=== PATIENT | female | born 1965 | race Caucasian/White ===

== ENCOUNTER 2017-11-27 22:13 | Observation (INO) | payer MEDICAID, OTHER ==
[~2017-11-27] VITALS: Ht 160 cm; Wt 98.9 kg
--- NOTE | 2017-11-27 22:17 | ED.ADGEN ---
Past History Past Medical History: Angina, Hypertension, Other Past Surgical History: Cholecystectomy, Knee Replacement, Other Adult General Chief Complaint Chief Complaint ".. I am having Chest pain.. all day...it started about 10 to 1030.. but it has never gone away.. here in center of my chest... I took two nitro's and they did not help..." HPI HPI Patient is a 52 year old female who presents with above hx and complaints of chest pain she rates as 10/10. Patient did take aspirin today as well as 2 nitros without relief of her pain. Patient has remote history of DVT. Patient does have a history of hypertension, asthma, elevated cholesterol, chronic back and knee pain. No change in her medications. Normally follows with Dr. Reilly. Patient's last cardiac catheter was in 2011 no significant obstruction was noted. Did not receive any stents. Patient has not seen a graduate fellow recently. Review of Systems Review of Systems Constitutional: Denies fever or chills [] Eyes: Denies change in visual acuity, redness, or eye pain [] HENT: Denies nasal congestion or sore throat [] Respiratory: Denies cough or shortness of breath [] Cardiovascular: No additional information not addressed in HPI [] GI: Denies abdominal pain, nausea, vomiting, bloody stools or diarrhea [] : Denies dysuria or hematuria [] Musculoskeletal: Denies back pain or joint pain [] Integument: Denies rash or skin lesions [] Neurologic: Denies headache, focal weakness or sensory changes [] Endocrine: Denies polyuria or polydipsia [] All other systems were reviewed and found to be within normal limits, except as documented in this note. Family History Family History Noncontributory Current Medications Current Medications Current Medications Medications (Trade) Dose Ordered Sig/Ophelia Start Time Stop Time Status Last Admin Dose Admin Lactated Ringer's 1,000 ml @ 1,000 mls/hr Q1H 11/27/17 22:30 11/27/17 23:29 DC 11/27/17 22:46 1,000 MLS/HR See nursing for home meds Allergies Allergies Allergies Coded Allergies Type Severity Reaction Last Updated Verified Penicillins Allergy Unknown 11/27/17 Yes codeine Allergy Unknown 11/27/17 Yes ibuprofen Allergy Unknown 11/27/17 Yes tramadol Allergy Unknown 11/27/17 Yes per nursing Physical Exam Physical Exam Constitutional: Moderately acute distress, non-toxic appearance. [] HENT: Normocephalic, atraumatic, bilateral external ears normal, oropharynx moist, no oral exudates, nose normal. [] Eyes: PERRLA, EOMI, conjunctiva normal, no discharge. [] Glasses Neck: Normal range of motion, no tenderness, supple, no stridor. [] Old surgery scars. Cardiovascular- as per history of present illness. Regular rate and rhythm PMI to left Chest- breath sounds equal at apexes Abdomen- Obese, old surgery scars. Non-tender, No masses. Declines rectal - denies tarry stools. Skin: Warm, dry, no erythema, no rash. [] Back: No tenderness, no CVA tenderness. [] Extremities: No tenderness, no cyanosis, no clubbing, ROM intact, no edema. [] Right knee scar. No cording appreciated Neurologic: Alert and oriented X 3, normal motor function, normal sensory function, no focal deficits noted. [] Psychologic: Affect anxious, judgement normal, mood normal. [] Current Patient Data Vital Signs Vital Signs Date Time Temp Pulse Resp B/P (MAP) Pulse Ox O2 Delivery O2 Flow Rate FiO2 11/27/17 22:15 97.9 77 16 93 Room Air Lab Results Laboratory Tests Test 11/27/17 22:24 White Blood Count 9.6 x10^3/uL (4.0-11.0) Red Blood Count 4.50 x10^6/uL (3.50-5.40) Hemoglobin 13.2 g/dL (12.0-15.5) Hematocrit 39.3 % (36.0-47.0) Mean Corpuscular Volume 87 fL (79-100) Mean Corpuscular Hemoglobin 29 pg (25-35) Mean Corpuscular Hemoglobin Concent 34 g/dL (31-37) Red Cell Distribution Width 14.5 % (11.5-14.5) Platelet Count 306 x10^3/uL (140-400) Neutrophils (%) (Auto) 71 % (31-73) Lymphocytes (%) (Auto) 20 % (24-48) L Monocytes (%) (Auto) 6 % (0-9) Eosinophils (%) (Auto) 2 % (0-3) Basophils (%) (Auto) 1 % (0-3) Neutrophils # (Auto) 6.9 x10^3uL (1.8-7.7) Lymphocytes # (Auto) 1.9 x10^3/uL (1.0-4.8) Monocytes # (Auto) 0.5 x10^3/uL (0.0-1.1) Eosinophils # (Auto) 0.2 x10^3/uL (0.0-0.7) Basophils # (Auto) 0.1 x10^3/uL (0.0-0.2) Prothrombin Time 9.6 SEC (9.4-11.4) Prothrombin Time INR 0.9 (0.9-1.1) PTT 23 SEC (23-33) D-Dimer (Mei) 0.81 mg/L (0.00-0.50) H Sodium Level 138 mmol/L (136-145) Potassium Level 4.1 mmol/L (3.5-5.1) Chloride Level 103 mmol/L (98-107) Carbon Dioxide Level 30 mmol/L (21-32) Anion Gap 5 (6-14) L Blood Urea Nitrogen 11 mg/dL (7-20) Creatinine 1.0 mg/dL (0.6-1.0) Estimated GFR (Cockcroft-Gault) 58.2 Glucose Level 107 mg/dL (70-99) H Calcium Level 9.0 mg/dL (8.5-10.1) Magnesium Level 1.8 mg/dL (1.8-2.4) Total Bilirubin 0.3 mg/dL (0.2-1.0) Direct Bilirubin 0.1 mg/dL (0.0-0.2) Aspartate Amino Transferase (AST) 14 U/L (15-37) L Alanine Aminotransferase (ALT) 13 U/L (14-59) L Alkaline Phosphatase 97 U/L (46-116) Creatine Kinase 95 U/L (26-192) Creatine Kinase MB (Mass) 0.6 ng/mL (0.0-3.6) Creatine Kinase MB Relative Index 0.6 % (0-4) Troponin I Quantitative < 0.017 ng/mL (0-0.055) IN-Duu-F-Type Natriuretic Peptide 230 pg/mL (0-124) H Total Protein 6.7 g/dL (6.4-8.2) Albumin 3.4 g/dL (3.4-5.0) Lipase 207 U/L (73-393) EKG EKG I interpretation EKG shows[] sinus rhythm at 72 bpm. There is some leftward axis. Some nonspecific contour changes anterior septal region but no findings acute STEMI with contralateral changes. Radiology/Procedures Radiology/Procedures My interpretation of chest x-ray shows[] no chest x-ray shows borderline cardiac silhouette. Atelectasis. Some increased cephalization and bolus of the mediastinal area. Does have a previous hardware in neck from laminectomy. No free air in the diaphragm. Lateral film shows previous clips from abdomen surgery. Course & Med Decision Making Course & Med Decision Making Pertinent Labs and Imaging studies reviewed. (See chart for details) Discussed presentation, testing and tx. plan with Dr. Simon- will admit for further eval. and Tx. Cardiology consult. CT of chest and US legs pending at time of admission [] Final Impression Final Impression 1. Chest pain 2. Hypertension[] 3. Elevated D-dimer Dragon Disclaimer Dragon Disclaimer This electronic medical record was generated, in whole or in part, using a voice recognition dictation system. SHAY SNEED MD Nov 27, 2017 22:17
[2017-11-27] MEDS ORDERED: IV RINGERS SOLUTION,LACTATED 1,000 ML IV SCH (22:30)
--- NOTE | 2017-11-27 22:34 | EKG ---
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
[2017-11-27] MEDS ORDERED: MORPHINE SULFATE 10 MG/ML SYRINGE. SQ ONE (22:45)
[2017-11-27] MEDS ORDERED: ENOXAPARIN ** NOTE DOSE ** SYRINGE SQ ONE (22:45)
[2017-11-27] MEDS ORDERED: NITROGLYCERIN OINT 1 GM PACKET. TP ONE (22:45)
[2017-11-27 22:46] LABS: BASO # 0.1 x10^3/uL (0.0-0.2); BASO % 1 % (0-3); EOS # 0.2 x10^3/uL (0.0-0.7); EOS % 2 % (0-3); HEMATOCRIT 39.3 % (36.0-47.0); HEMOGLOBIN 13.2 g/dL (12.0-15.5); LYMPH # 1.9 x10^3/uL (1.0-4.8); LYMPH % 20 % (24-48); MEAN CORPUSCULAR HEMOGLOBIN 29 pg (25-35); MEAN CORPUSCULAR HGB CONC 34 g/dL (31-37); MEAN CORPUSCULAR VOLUME 87 fL (79-100); MONO # 0.5 x10^3/uL (0.0-1.1); MONO % 6 % (0-9); NEUT # 6.9 x10^3uL (1.8-7.7); NEUT % 71 % (31-73); PLATELET COUNT 306 x10^3/uL (140-400); RED CELL DISTRIBUTION WIDTH 14.5 % (11.5-14.5); WHITE BLOOD COUNT 9.6 x10^3/uL (4.0-11.0)
--- NOTE | 2017-11-27 22:50 | RAD ---
PA and lateral chest radiograph. History: Chest pain. Comparison: None. Findings: Cardiomediastinal silhouette is within normal limits for size. Bilateral lung cruz appear clear without evidence of infiltrate, effusion, or pneumothorax. Cervicothoracic junction demonstrate spinal fusion hardware. Old granulomatous disease of the chest is seen. Impression: 1. No acute cardiopulmonary process. Electronically signed by: Herb Quintero MD (11/27/2017 10:47 PM) [facility]
[2017-11-27 23:08] LABS: ALBUMIN 3.4 g/dL (3.4-5.0); DIRECT BILIRUBIN 0.1 mg/dL (0.0-0.2); GFR 58.2; MAGNESIUM 1.8 mg/dL (1.8-2.4); POTASSIUM 4.1 mmol/L (3.5-5.1); TOTAL BILIRUBIN 0.3 mg/dL (0.2-1.0); TOTAL PROTEIN 6.7 g/dL (6.4-8.2)
[2017-11-27] MEDS ORDERED: MORPHINE SULFATE 2 MG/ML DISP.SYRIN. IV PRN (23:45)
[2017-11-28] MEDS ORDERED: IOHEXOL 300 MG/ML 75 ML VIAL. IV ONE (00:15)
[2017-11-28] MEDS ORDERED: CONTRAST GIVEN MC PRN (00:15)
--- NOTE | 2017-11-28 01:05 | NUR ---
[facility] cardiology group notified that a cardiac consult is needed.
--- NOTE | 2017-11-28 01:38 | NUR ---
Pt arrives to room 113 from ER via EMS cot at this time.
--- NOTE | 2017-11-28 01:42 | RAD ---
INDICATION: [id number] Omni 300 75cc: PE protocol: Chest pain, elevated d-dimer. Hx: blood clot in lung 3 years ago COMPARISON: None. TECHNIQUE: Axial CT images obtained through the chest. Intravenous contrast utilized. Angiogram 3D images processed per protocol. One or more of the following individualized dose reduction techniques were utilized for this examination: 1. Automated exposure control; 2. Adjustment of the mA and/or kV according to patient size; 3. Use of iterative reconstruction technique. FINDINGS: Patchy opacities are seen throughout the bilateral lungs including groundglass component. Portion of ascending thoracic aorta obscured by motion but no definite dissection flap seen. Ascending thoracic aorta measures approximately 34 mm. The heart is somewhat enlarged. Degenerative changes of the spine. Postoperative changes lower cervical spine status post fusion. Motion and contrast bolus timing limits evaluation. No embolus in main pulmonary arteries. IMPRESSION: Patient motion limits exam but there is no embolus seen in the main pulmonary arteries. Peripheral evaluation is very limited. Groundglass opacities within the bilateral lungs. Could be from edema or airway inflammation from infectious/inflammatory causes. Also possible that a portion of this is secondary to hypoventilatory changes. Electronically signed by: Aiden Ignacio MD (11/28/2017 1:39 AM) [facility]
[2017-11-28 01:47] VITALS: BP 123/76
[2017-11-28] MEDS ORDERED: LISI-379 PO (02:04)
[2017-11-28] MEDS ORDERED: ESCITALOPRAM OX10 MG PO (02:04)
[2017-11-28] MEDS ORDERED: ATOR40TA PO (02:04)
[2017-11-28] MEDS ORDERED: ALBU6.7H IH (02:04)
--- NOTE | 2017-11-28 02:45 | NUR ---
Admission Note: Pt admitted Telemetry Status to one south after coming into the ER c/o CP. Pt is A/O x 4 pleasant and cooperative with staff, assessments and cares. Pt oriented to room and verbalizes understanding. Pt placed on telemetry on admission and shows NSR in the 60's. Pt steady on her feet but encouraged her to call when getting OOB for safety. Will continue to monitor.
[2017-11-28 02:51] LABS: BARBITURATES NEG (NEG); BENZODIAZEPINES NEG (NEG); CANNABINOIDS NEG (NEG); COCAINE NEG (NEG); METHADONE NEG (NEG); OPIATES POS (NEG); PHENCYCLIDINE NEG (NEG)
[2017-11-28 02:55] LABS: BACTERIA,URINE 0 /HPF (0-FEW); BILIRUBIN,URINE NEG (NEG); CLARITY,URINE CLEAR; COLOR,URINE YELLOW; GLUCOSE,URINE NEG (NEG); NITRITE,URINE NEG (NEG); RBC,URINE 0 /HPF (0-2); SQUAMOUS EPITHELIAL CELL,UR MANY /LPF; UROBILINOGEN,URINE 0.2 mg/dL (0.2 mg/dL); WBC,URINE 0 /HPF (0-4)
[2017-11-28 03:06] LABS: AMPHETAMINE/METHAMPHETAMINE NEG (NEG)
[2017-11-28] MEDS: ONDANSETRON PF 4 MG/2 ML VIAL. IV PRN ×2 (03:26→12:22)
[2017-11-28 05:19] VITALS: BP 120/80
[2017-11-28] MEDS ORDERED: NITROGLYCERIN OINT 1 GM PACKET. TP SCH (06:00)
[2017-11-28 06:15] LABS: BASO # 0.1 x10^3/uL (0.0-0.2); BASO % 1 % (0-3); EOS # 0.1 x10^3/uL (0.0-0.7); EOS % 1 % (0-3); HEMATOCRIT 37.1 % (36.0-47.0); HEMOGLOBIN 12.3 g/dL (12.0-15.5); LYMPH # 1.4 x10^3/uL (1.0-4.8); LYMPH % 12 % (24-48); MEAN CORPUSCULAR HEMOGLOBIN 29 pg (25-35); MEAN CORPUSCULAR HGB CONC 33 g/dL (31-37); MEAN CORPUSCULAR VOLUME 88 fL (79-100); MONO # 0.6 x10^3/uL (0.0-1.1); MONO % 5 % (0-9); NEUT # 9.7 x10^3uL (1.8-7.7); NEUT % 82 % (31-73); PLATELET COUNT 279 x10^3/uL (140-400); RED BLOOD COUNT 4.21 x10^6/uL (3.50-5.40); RED CELL DISTRIBUTION WIDTH 14.9 % (11.5-14.5); WHITE BLOOD COUNT 11.9 x10^3/uL (4.0-11.0)
[2017-11-28 06:25] LABS: CALCIUM 8.6 mg/dL (8.5-10.1); CREATININE 0.8 mg/dL (0.6-1.0); GFR 75.3
[2017-11-28] MEDS ORDERED: ENOXAPARIN ** NOTE DOSE ** SYRINGE SQ SCH ×2 (09:00→21:00)
[2017-11-28] MEDS ORDERED: ASPIRIN 81 MG TAB.CHEW PO SCH (09:00)
[2017-11-28] MEDS ORDERED: MORPHINE SULFATE 4 MG/ML DISP.SYRIN. ONE (09:16)
[2017-11-28] MEDS ORDERED: MORPHINE SULFATE 4 MG/ML DISP.SYRIN. IV PRN (09:30)
--- NOTE | 2017-11-28 10:30 | PDOC2 ---
ROSALESCLAUDIA Judith MOLECULAR PHYSICIST 11/28/17 1030: CONSULT Date of Admission DATE: 11/28/17 TIME: 10:23 Reason for Consult: chest pain Problem List Problems Medical Problems: (1) Chest pain Status: Acute History of Present Illness Ms Goddard is a 52 year old female who presented with complaints of chest pain. She describes a sharp pain in her left chest. Onset was at rest. She denies any increase with exertion, deep inspiration, movement. She denies any associated symptoms but does report mild dyspnea on exertion that she says is chronic and improved with use of her inhaler. She reports that her pain was not improved with nitrates and complains of headache. She reports that pain has been constant and continues to be at a 5/10. She does report improvement with morphine. She denies any palpitations, lightheadedness, syncope, congestive symptoms. She denies any change in her functional status. She does report prior cardiac cath that failed to reveal any significant coronary disease and states she had a stress test at [facility] in, she believes, July of this year. Past Medical History hypertension, hyperlipidemia, asthma, PE Cardiac cath by patient report at [facility] in [place], [place] which was normal Stress test in ~July at [facility] also reportedly normal. Past Surgical History back surgery, neck surgery, knee surgery Family History premature coronary disease in brother and sister, cancer and diabetes in mother , father with sudden cardiac at 49 yrs old. Social History She denies history of tobacco, ETOH or illicit drugs. Current Medications Home cardiac meds include : atorvastatin 40 mg daily Lisinopril 40mg daily Current Medications Lactated Ringer's 1,000 ml @ 1,000 mls/hr Q1H IV Last administered on at 22:46; Start 11/27/17 at 22:30; Stop 11/27/17 at 23:29; Status DC Nitroglycerin (Nitro-Bid Oint) 1 inch 1X ONCE TP Last administered on at 22:45; Start 11/27/17 at 22:45; Stop 11/27/17 at 22:46; Status DC Enoxaparin Sodium (Lovenox 100mg Syringe) 100 mg 1X ONCE SQ Last administered on 11/27/17at 22:47; Start 11/27/17 at 22:45; Stop 11/27/17 at 22:46; Status DC Morphine Sulfate (Morphine 10mg Syringe) 10 mg 1X ONCE SQ Last administered on 11/27/17at 22:47; Start 11/27/17 at 22:45; Stop 11/27/17 at 22:46; Status DC Iohexol (Omnipaque 300 Mg/ml) 75 ml 1X ONCE IV Last administered on 11/28/17at 00:14; Start 11/28/17 at 00:15; Stop 11/28/17 at 00:16; Status DC Morphine Sulfate (Morphine 2mg Syringe) 2 mg PRN Q2HR PRN IV PAIN Last administered on 11/28/17at 00:46; Start 11/27/17 at 23:45; Stop 11/28/17 at 09:22; Status DC Aspirin (Children'S Aspirin) 81 mg DAILY PO Last administered on 11/28/17at 09:07 ; Start 11/28/17 at 09:00 Nitroglycerin (Nitro-Bid Oint) 1 inch Q8H TP Last administered on 11/28/17at 06: 03; Start 11/28/17 at 06:00 Enoxaparin Sodium (Lovenox 100mg Syringe) 90 mg BID SQ Last administered on 11/28at 09:09; Start 11/28/17 at 09:00 Info (Do NOT chart on this entry -- for MONITORING) 1 each PRN DAILY PRN MC SEE COMMENTS; Start 11/28/17 at 00:15; Stop 11/30/17 at 00:14 Ondansetron HCl (Zofran) 4 mg PRN Q6HRS PRN IV NAUSEA/VOMITING Last administered on 11/28/17at 03:26; Start 11/28/17 at 02:45 Morphine Sulfate (Morphine 4mg Syringe) 4 mg STK-MED ONCE .ROUTE ; Start at 09:16; Stop 11/28/17 at 09:17; Status DC Morphine Sulfate (Morphine 4mg Syringe) 2 mg PRN Q2HR PRN IV PAIN; Start at 09:30; Stop 11/28/17 at 23:44 Active Scripts Active Reported Proventil Hfa Inhaler (Albuterol Sulfate) 6.7 Gm Hfa.aer.ad 1 Puff IH PRN Q4HRS PRN Zestril (Lisinopril) 40 Mg Tablet 80 Mg PO DAILY Lipitor (Atorvastatin Calcium) 40 Mg Tablet 1 Tab PO DAILY Escitalopram Oxalate 10 Mg Tablet 1 Tab PO DAILY Allergies: Coded Allergies: Penicillins (Verified Allergy, Intermediate, 11/28/17) codeine (Verified Allergy, Intermediate, 11/28/17) ibuprofen (Verified Allergy, Intermediate, 11/28/17) tramadol (Verified Allergy, Intermediate, 11/28/17) Review of System as per HPI or negative. VITALS Vital Signs Date Time Temp Pulse Resp B/P (MAP) Pulse Ox O2 Delivery O2 Flow Rate FiO2 11/28/17 06:03 64 120/80 11/28/17 05:19 98.3 16 94 Nasal Cannula 2.0 Labs Laboratory Tests Test 11/27/17 22:24 11/28/17 02:32 11/28/17 05:55 White Blood Count 9.6 x10^3/uL (4.0-11.0) 11.9 x10^3/uL (4.0-11.0) Red Blood Count 4.50 x10^6/uL (3.50-5.40) 4.21 x10^6/uL (3.50-5.40) Hemoglobin 13.2 g/dL (12.0-15.5) 12.3 g/dL (12.0-15.5) Hematocrit 39.3 % (36.0-47.0) 37.1 % (36.0-47.0) Mean Corpuscular Volume 87 fL (79-100) 88 fL (79-100) Mean Corpuscular Hemoglobin 29 pg (25-35) 29 pg (25-35) Mean Corpuscular Hemoglobin Concent 34 g/dL (31-37) 33 g/dL (31-37) Red Cell Distribution Width 14.5 % (11.5-14.5) 14.9 % (11.5-14.5) Platelet Count 306 x10^3/uL (140-400) 279 x10^3/uL (140-400) Neutrophils (%) (Auto) 71 % (31-73) 82 % (31-73) Lymphocytes (%) (Auto) 20 % (24-48) 12 % (24-48) Monocytes (%) (Auto) 6 % (0-9) 5 % (0-9) Eosinophils (%) (Auto) 2 % (0-3) 1 % (0-3) Basophils (%) (Auto) 1 % (0-3) 1 % (0-3) Neutrophils # (Auto) 6.9 x10^3uL (1.8-7.7) 9.7 x10^3uL (1.8-7.7) Lymphocytes # (Auto) 1.9 x10^3/uL (1.0-4.8) 1.4 x10^3/uL (1.0-4.8) Monocytes # (Auto) 0.5 x10^3/uL (0.0-1.1) 0.6 x10^3/uL (0.0-1.1) Eosinophils # (Auto) 0.2 x10^3/uL (0.0-0.7) 0.1 x10^3/uL (0.0-0.7) Basophils # (Auto) 0.1 x10^3/uL (0.0-0.2) 0.1 x10^3/uL (0.0-0.2) Prothrombin Time 9.6 SEC (9.4-11.4) Prothromb Time International Ratio 0.9 (0.9-1.1) Activated Partial Thromboplast Time 23 SEC (23-33) D-Dimer (Mei) 0.81 mg/L (0.00-0.50) Sodium Level 138 mmol/L (136-145) 136 mmol/L (136-145) Potassium Level 4.1 mmol/L (3.5-5.1) 4.0 mmol/L (3.5-5.1) Chloride Level 103 mmol/L (98-107) 103 mmol/L (98-107) Carbon Dioxide Level 30 mmol/L (21-32) 27 mmol/L (21-32) Anion Gap 5 (6-14) 6 (6-14) Blood Urea Nitrogen 11 mg/dL (7-20) 13 mg/dL (7-20) Creatinine 1.0 mg/dL (0.6-1.0) 0.8 mg/dL (0.6-1.0) Estimated GFR (Cockcroft-Gault) 58.2 75.3 Glucose Level 107 mg/dL (70-99) 122 mg/dL (70-99) Calcium Level 9.0 mg/dL (8.5-10.1) 8.6 mg/dL (8.5-10.1) Magnesium Level 1.8 mg/dL (1.8-2.4) Total Bilirubin 0.3 mg/dL (0.2-1.0) Direct Bilirubin 0.1 mg/dL (0.0-0.2) Aspartate Amino Transf (AST/SGOT) 14 U/L (15-37) Alanine Aminotransferase (ALT/SGPT) 13 U/L (14-59) Alkaline Phosphatase 97 U/L (46-116) Creatine Kinase 95 U/L (26-192) Creatine Kinase MB (Mass) 0.6 ng/mL (0.0-3.6) Creatine Kinase MB Relative Index 0.6 % (0-4) Troponin I Quantitative < 0.017 ng/mL (0-0.055) EA-Uae-H-Type Natriuretic Peptide 230 pg/mL (0-124) Total Protein 6.7 g/dL (6.4-8.2) Albumin 3.4 g/dL (3.4-5.0) Lipase 207 U/L (73-393) Urine Collection Type Unknown Urine Color Yellow Urine Clarity Clear Urine pH 5.0 Urine Specific [place] <=1.005 Urine Protein Neg (NEG-TRACE) Urine Glucose (UA) Neg mg/dL (NEG) Urine Ketones (Stick) Neg mg/dL (NEG) Urine Blood Trace (NEG) Urine Nitrite Neg (NEG) Urine Bilirubin Neg (NEG) Urine Urobilinogen Dipstick 0.2 mg/dL (0.2 mg/dL) Urine Leukocyte Esterase Neg (NEG) Urine RBC 0 /HPF (0-2) Urine WBC 0 /HPF (0-4) Urine Squamous Epithelial Cells Many /LPF Urine Bacteria 0 /HPF (0-FEW) Urine Opiates Screen Pos (NEG) Urine Methadone Screen Neg (NEG) Urine Barbiturates Neg (NEG) Urine Phencyclidine Screen Neg (NEG) Urine Amphetamine/Methamphetamine Neg (NEG) Urine Benzodiazepines Screen Neg (NEG) Urine Cocaine Screen Neg (NEG) Urine Cannabinoids Screen Neg (NEG) Urine Ethyl Alcohol Neg (NEG) Images EKG - sinus rhythm, left axis, non specific T abn. CXR - no acute abn CTA - IMPRESSION: Patient motion limits exam but there is no embolus seen in the main pulmonary arteries. Peripheral evaluation is very limited. Groundglass opacities within the bilateral lungs. Could be from edema or airway inflammation from infectious/inflammatory causes. Also possible that a portion of this is secondary to hypoventilatory changes. Assessment/Plan 1. Chest pain, atypical - suspect radiculopathy. will repeat cardiac enzymes, check echo, and request records of recent stress test from [facility] as well as heart cath from [facility] in [facility]. 2. hypertension - Currently mildly hypotensive off home antihypertensives. 3. abnormal CT - ground glass opacities possibly suggestive of edema, No overt clinical signs of heart failure. 4. elevated d dimer - CT negative for PE, venous duplex pending 5. hyperlipidemia - check lipids. resume home statin. 6. family history of premature coronary disease Will await repeat CE as only one set done and negative. Await echo results. Will request prior cath and stress test for review. Could consider MPI if not recent at [facility]. Continue supportive care. ISAC CLINE MD 11/28/17 1639: CONSULT Assessment/Plan Patient seen and examined. Agree with DUST MOP MAKER's assessment and plan. Chest pain with atypical features. Myocardial infarction has been ruled out. 2-D echo showed normal LV function without any wall motion abnormalities. Recent stress test apparently was normal and cardiac catheterization one year ago did not show any significant coronary artery disease. No further cardiac workup is indicated at this time. Okay for discharge from cardiac standpoint. Thank you for your consultation. CLAUDIA CABA APRN Nov 28, 2017 10:30 ISAC CLINE MD Nov 28, 2017 16:39
[2017-11-28 10:59] VITALS: BP 90/52
[2017-11-28 14:50] LABS: THYROID STIM HORMONE (TSH) 7.246 uIU/mL (0.358-3.740)
[2017-11-28 15:02] VITALS: BP 114/71
--- NOTE | 2017-11-28 15:06 | CARD ---
MR#: [id number] Date of Study: 11/28/2017 Ordering Physician: CLAUDIA CABA, Referring Physician: MARY MCDANIELS Tech: Jazmine Benjamin RDCS APPROVED REPORT EXAM: Two-dimensional and M-mode echocardiogram with Doppler and color Doppler. Other Information Quality : Good INDICATION Chest Pain 2D DIMENSIONS RVDd3.1 (2.9-3.5cm)Left Atrium(2D)3.8 (1.6-4.0cm) IVSd0.9 (0.7-1.1cm)Aortic Root(2D)3.3 (2.0-3.7cm) LVDd5.2 (3.9-5.9cm)LVOT Diameter2.1 (1.8-2.4cm) PWd1.0 (0.7-1.1cm)LVDs2.4 (2.5-4.0cm) FS (%) 30.0 %SV108.9 ml LVEF(%)60.0 (>50%) Aortic Valve AoV Peak Reilly.162.3cm/sAoV VTI33.6cm AO Peak GR.10.5mmHgLVOT Peak Reilly.143.7cm/s LVOT VTI 29.59cmAO Mean GR.5mmHg ANITHA (VMAX)3.75vr6JQM (VTI)3.15cm2 Mitral Valve MV E Udmxsjae380.5cm/sMV DECEL RWQO272rz MV A Xrgrsjzw412.1cm/sE/A Ratio1.2 Tricuspid Valve TR P. Diijteim402qg/sRAP ZULHIQHQ6iiAp TR Peak Gr.37teXwEVDR99wwPk Pulmonary Vein S1 Nbcufbmi77.4cm/sD2 Malomtwy66.8cm/s LEFT VENTRICLE The left ventricle is normal size. There is normal left ventricular wall thickness. The left ventricu lar systolic function is normal. The Ejection Fraction is 55-60%. There is normal LV segmental wall m otion. RIGHT VENTRICLE The right ventricle is normal size. The right ventricular systolic function is normal. ATRIA The left atrium size is normal. The right atrium size is normal. The interatrial septum is intact wit h no evidence for an atrial septal defect or patent foramen ovale as noted on 2-D or Doppler imaging. AORTIC VALVE The aortic valve is normal in structure and function. Doppler and Color Flow revealed no significant aortic regurgitation. There is no significant aortic valvular stenosis. MITRAL VALVE The mitral valve is normal in structure and function. There is no evidence of mitral valve prolapse. There is no mitral valve stenosis. Doppler and Color-flow revealed trace to mild mitral regurgitation . TRICUSPID VALVE The tricuspid valve is normal in structure and function. Doppler and Color Flow revealed trace tricus pid regurgitation. The PA pressure was estimated at 30 mmHg. There is no tricuspid valve stenosis. PULMONIC VALVE The pulmonic valve is not well visualized. Doppler and Color Flow revealed trace pulmonic valvular re gurgitation. There is no pulmonic valvular stenosis. GREAT VESSELS The aortic root is normal in size. The ascending aorta is mildly dilated at 3.4 cm. The IVC is normal in size and collapses >50% with inspiration. PERICARDIAL EFFUSION There is no evidence of significant pericardial effusion. Critical Notification Critical Value: No <Conclusion> The left ventricular systolic function is normal. The Ejection Fraction is 55-60%. There is normal LV segmental wall motion. Trace to mild mitral regurgitation. Trace tricuspid regurgitation. The PA pressure was estimated at 30 mmHg. There is no evidence of significant pericardial effusion. Signed by : Gilberto Bacon, Electronically Approved : 11/28/2017 15:05:12
--- NOTE | 2017-11-28 16:06 | RAD ---
Bilateral lower extremity venous doppler ultrasound Indication: Elevated d-dimer. Chest pain. . Technique: Color Doppler, grayscale, and spectral waveform analysis is used to evaluate the right and left lower extremity deep venous system, including the common femoral vein, superficial femoral vein, popliteal vein, and visualized calf veins. Right leg: No evidence of deep venous thrombosis. Normal response to augmentation, normal compressibility and normal phasicity is demonstrated. Visualized calf veins are patent. Greater saphenous vein appears patent. Left leg: No evidence of deep venous thrombosis. Normal response to augmentation, normal compressibility and normal phasicity is demonstrated. Visualized calf veins are patent. Greater saphenous vein is patent. Impression: Negative for deep venous thrombosis Electronically signed by: Herb Julio MD (11/28/2017 4:03 PM) [id number]
[2017-11-28] MEDS ORDERED: ALBUTEROL SULFATE 8GM INHALER. IH PRN (16:15)
[2017-11-28] MEDS ORDERED: ALBUTEROL SULFATE 2.5 MG/3 ML NEBU. NEB PRN (16:30)
--- NOTE | 2017-11-28 17:25 | SSS ---
ADMIT DATE: HISTORY OF PRESENT ILLNESS: The patient is a 52-year-old female patient who came to the Emergency Room complaining of left-sided chest pain that started about 10:30 yesterday morning, has never gone away, mostly in the left side of the chest, took 2 nitro and it did not help. She rated as 10/10 in severity. She did take an aspirin without relief of her pain, has remote history of deep venous thrombosis. The patient has had a history of hypertension, bronchial asthma, hyperlipidemia, chronic back pain, and knee pain. She has no change in her medication. Normally, she follows with Dr. Reilly. Her last cardiac catheterization was in ____ with no significant obstruction, did not receive any stents. She was evaluated in the Emergency Room, has had 2 sets of cardiac enzymes that were negative. Her EKG was unremarkable and she was in sinus rhythm with a leftward axis with some nonspecific changes without any ST segment elevation or depression. Chest x-ray showed borderline cardiac silhouette and her CT scan of the chest with PE protocol, showed the patient motion limits exam, but there is no embolus seen in the main pulmonary arteries, peripheral evaluation is very limited, ground glass opacities within bilateral lungs could be from edema or airway inflammation from Infectious, inflammatory cause is also possible that the portion of this secondary to hypoventilation ____ changes. Her ultrasound of both lower extremities was negative and she was evaluated by the Cardiology team and they recommended the patient can be discharged safely. Her echocardiogram was done, it showed that the patient has left ventricular systolic function normal, ejection fraction is 55-60%. There is normal left ventricular segmental wall motion, trace to mild mitral regurgitation, trace tricuspid regurgitation. Pulmonary artery pressure is estimated at 30 mmHg. There is no evidence of significant pericardial effusion. Her venous Doppler ultrasound of both lower extremities were negative. When I examined her this afternoon, she looked well. PAST MEDICAL HISTORY: Significant for hypertension, hyperlipidemia, bronchial asthma, and history of DVT. PAST SURGICAL HISTORY: Significant for right total knee arthroplasty in 2016, back surgery in 2016, cholecystectomy, total abdominal hysterectomy, bilateral salpingo-oophorectomy as well as colonoscopy. ALLERGIES: SHE IS ALLERGIC TO PENICILLIN, CODEINE, IBUPROFEN, TRAMADOL. FAMILY HISTORY: She has one brother who has 4 stents and one sister has 2 stents. Her father at age of 49 because of myocardial infarction. Mother at 74 because of breast cancer. She was twice and twice, and currently single, lives with her boyfriend. SOCIAL HISTORY: She has 2 sons. She never smoked, does not drink alcohol or use any recreational drugs. She is on disability. REVIEW OF SYSTEMS: The patient has bilateral cataracts that will require surgery next year. No glaucoma or macular degeneration. Denied any earache, tinnitus or sensorineural deafness. Denied any nosebleeds, stuffy nose or postnasal drip. Denied any sore throat, sore tongue, toothache, hoarseness of voice or difficulty swallowing. Denied any nausea, vomiting, diarrhea or constipation. Denied any hematemesis, melena or hematochezia. Denied any dysuria, frequency or hematuria. Denied any chills, rigors or fever. PHYSICAL EXAMINATION: GENERAL: On examining her, she looked well and was clearly in no apparent respiratory distress. No pallor, jaundice, cyanosis or thyromegaly. No jugular venous distention. No limb edema. VITAL SIGNS: Her heart rate was 58, blood pressure was 114/71, temperature was 98.4, respiratory rate 20, and oxygen saturation was 91%. HEENT: Showed normocephalic, atraumatic. NECK: Supple. HEART: Showed normal first and second sounds. No gallop, rub or murmur. CHEST: Clear to auscultation. No crepitation or rhonchi. ABDOMEN: Distended, soft, nontender. No guarding or rigidity. No organomegaly. All hernial orifice intact. Bowel sounds normal. NEUROLOGIC: She is awake, alert, responding appropriately. Cranial nerves intact. EXTREMITIES: She moves extremities without difficulty. She ambulates without assistance or assistive devices. LABORATORY DATA: Her lab work showed that her white cell count was 11,900; hemoglobin 12, hematocrit 37, MCV 88 and platelet count of 279,000. Her chemistry showed a serum sodium 136, potassium 4, chloride 103, bicarbonate 27, anion gap of 6, BUN 13, creatinine 0.8, estimated GFR was 75 mL per minute. Her glucose was 122, calcium was 8.6. She has 2 sets of cardiac enzymes that were negative. Her triglycerides were high at 385, total cholesterol was 234, LDL was 122, VLDL was 77, HDL was 35, ratio was 6. Her TSH was high at 7.246. Her prothrombin time was 9.6, INR of 0.9, aPTT was 23 and D-dimer was 0.81. She has had a chest x-ray, which showed that the cardiomediastinal silhouette is within normal limits for size, bilateral lung cruz appear clear without evidence of infiltrate, effusion or pneumothorax. ____ cervicothoracic junction demonstrates spinal fusion hardware, old granulomatous disease of the chest is seen. Her chest CT angio showed that there is no embolus seen in the main pulmonary arteries, peripheral evaluation is very limited. She has ground glass opacities, felt to be possibly related to hypoventilatory changes. ASSESSMENT AND PLAN: The patient was discharged home to continue on her home medication, which include albuterol sulfate for Proventil 1 inhalation every 4 hours, atorvastatin calcium 40 mg at bedtime, lisinopril 80 mg once a day, and escitalopram oxalate 10 mg once a day. FINAL DISCHARGE DIAGNOSES: Chest pain, myocardial infarction is ruled out. Elevated D-dimer with no evidence of deep venous thrombosis or pulmonary embolism, hyperlipidemia, hypertension, history of deep venous thrombosis, and bronchial asthma. MARY MCDANIELS MD DR: REY/johnny JOB#: [id number] / [id number]
--- NOTE | 2017-11-28 18:38 | NUR ---
Pt discharged home for self-care. IV discontinued with no complications, pressure dressing applied. Pt gave verbal understanding for discharge, follow up, and medication instructions to this nurse. Pt left unit in stable condition via ambulation accompanied by family member.
[2017-11-29] MEDS ORDERED: LISINOPRIL 20 MG TABLET PO SCH (09:00)
[2017-11-29] MEDS ORDERED: CITALOPRAM 20 MG TABLET. PO SCH (09:00)
[2017-11-29] MEDS ORDERED: ATORVASTATIN CALCIUM 20 MG TABLET PO SCH (09:00)
== END 2017-11-28 16:30 | disposition home or self-care (01) ==
LOC: ER 22:13 → INTOOBSV 22:30 → ICU 22:30 → 1 SOUTH 11-28 01:23
PROVIDERS: ADMIT Internal Medicine; ATTEND Internal Medicine
DX: R07.89 Other chest pain (principal); I10 Essential (primary) hypertension; E78.5 Hyperlipidemia, unspecified; E78.00 Pure hypercholesterolemia, unspecified; J45.909 Unspecified asthma, uncomplicated; Z80.3 Family history of malignant neoplasm of breast; Z82.49 Family history of ischemic heart disease and other diseases of the circulatory system; Z83.3 Family history of diabetes mellitus; Z86.718 Personal history of other venous thrombosis and embolism; Z90.710 Acquired absence of both cervix and uterus; Z96.651 Presence of right artificial knee joint
CPT/HCPCS: 36415; 71046; 71275; 80048; 80061; 80076; 80307; 81001; 82553; 83690; 83735; 83880; 84443; 84484; 85025; 85379; 85610; 85730; 93005; 93306; 93970; 96361; 96372; 96374; 96375; 96376; 99285; G0378; J1650; J2270; J2405; J7120; Q9967; 96360; G0379; G0479

== ENCOUNTER 2017-11-30 23:57 | Observation (INO) | payer OTHER ==
[~2017-11-30] VITALS: Ht 160 cm; Wt 99.3 kg
[~2017-11-30 23:57] MED LIST: ALBU6.7H IH; ATOR40TA PO; ESCITALOPRAM OX10 MG PO; LISI-379 PO
--- NOTE | 2017-11-30 23:59 | ED.ADGEN ---
Past History Past Medical History: Angina, Hypertension, Other Past Surgical History: Cholecystectomy, Knee Replacement, Other Alcohol Use: None Drug Use: None Adult General Chief Complaint Chief Complaint ".. I am having chest pain again... and bad nausea...".. vomiting.. and I blacked out..." HPI HPI Patient is a 52 year old female who presents with above hx and complaints persistent chest pain. Pt. also episodes of nausea to point of vomiting. Pt. complaints of syncope episode at home. Does not recall if had any dysrhythmia prior to the syncopal episode. Pt. recently admitted for Angina and CP. Pt. denies any bad food intake. No hx of travel or specific ill contacts. Pt. recently admitted C/P eval. and was discharge 11/28. Review of Systems Review of Systems Constitutional: Denies fever or chills [] Eyes: Denies change in visual acuity, redness, or eye pain [] HENT: Denies nasal congestion or sore throat [] Respiratory: Denies cough. complaints of shortness of breath [] Cardiovascular: No additional information not addressed in HPI [] GI: Complaints of abdominal pain, nausea, vomiting, . Denies bloody stools or diarrhea [] : Denies dysuria or hematuria [] Musculoskeletal: Denies back pain or joint pain [] Integument: Denies rash or skin lesions [] Neurologic: Denies headache, focal weakness or sensory changes []Hx of syncope episode Endocrine: Denies polyuria or polydipsia [] All other systems were reviewed and found to be within normal limits, except as documented in this note. Family History Family History Non-contributory Current Medications Current Medications Current Medications Medications (Trade) Dose Ordered Sig/Ophelia Start Time Stop Time Status Last Admin Dose Admin Aspirin (Children'S Aspirin) 324 mg 1X ONCE 12/01/17 01:00 12/01/17 01:01 DC 12/01/17 01:13 324 MG Famotidine (Pepcid) 20 mg 1X ONCE 12/01/17 01:00 12/01/17 01:01 DC 12/01/17 01:12 20 MG Lactated Ringer's 1,000 ml @ 100 mls/hr Q10H 12/01/17 01:00 12/01/17 10:59 12/01/17 01:12 100 MLS/HR Ondansetron HCl (Zofran Odt) 8 mg 1X ONCE 12/01/17 01:00 12/01/17 01:01 DC 12/01/17 01:13 8 MG Allergies Allergies Allergies Coded Allergies Type Severity Reaction Last Updated Verified Penicillins Allergy Intermediate 11/28/17 Yes codeine Allergy Intermediate 11/28/17 Yes ibuprofen Allergy Intermediate 11/28/17 Yes tramadol Allergy Intermediate 11/28/17 Yes Physical Exam Physical Exam Constitutional: in acute distress, non-toxic appearance. [] HENT: Normocephalic, atraumatic, bilateral external ears normal, oropharynx moist, no oral exudates, nose normal. [] Eyes: PERRLA, EOMI, conjunctiva normal, no discharge. [] Glasses. Neck: Normal range of motion, no tenderness, supple, no stridor. [] No bruit. Cardiovascular:Heart rate regular rhythm, no murmur [] Lungs & Thorax: Bilateral breath sounds equal with scattered wheezes on auscultation [] Abdomen: Bowel sounds decreased, soft, generalized tenderness, no masses, no pulsatile masses. [Scars Skin: Warm, dry, no erythema, no rash. [] Back: No tenderness, no CVA tenderness. [] Old surgery scars. Extremities: No tenderness, no cyanosis, no clubbing, ROM intact, no edema. [] Scars knee Neurologic: Alert and oriented X 3, normal motor function, normal sensory function, no focal deficits noted. []DTR +2, patella and brachial. [employer]ricator Foam [employer]ber equal. Psychologic: Affect anxious, , judgement normal, mood normal. [] Current Patient Data Vital Signs Vital Signs Date Time Temp Pulse Resp B/P (MAP) Pulse Ox O2 Delivery O2 Flow Rate FiO2 12/01/17 02:15 69 16 128/95 (106) 95 Room Air 12/01/17 00:00 99.0 Lab Results Laboratory Tests Test 12/01/17 00:45 12/01/17 01:30 White Blood Count 9.0 x10^3/uL (4.0-11.0) Red Blood Count 4.18 x10^6/uL (3.50-5.40) Hemoglobin 12.2 g/dL (12.0-15.5) Hematocrit 36.9 % (36.0-47.0) Mean Corpuscular Volume 88 fL (79-100) Mean Corpuscular Hemoglobin 29 pg (25-35) Mean Corpuscular Hemoglobin Concent 33 g/dL (31-37) Red Cell Distribution Width 14.9 % (11.5-14.5) H Platelet Count 293 x10^3/uL (140-400) Neutrophils (%) (Auto) 76 % (31-73) H Lymphocytes (%) (Auto) 16 % (24-48) L Monocytes (%) (Auto) 6 % (0-9) Eosinophils (%) (Auto) 2 % (0-3) Basophils (%) (Auto) 0 % (0-3) Neutrophils # (Auto) 6.8 x10^3uL (1.8-7.7) Lymphocytes # (Auto) 1.5 x10^3/uL (1.0-4.8) Monocytes # (Auto) 0.5 x10^3/uL (0.0-1.1) Eosinophils # (Auto) 0.2 x10^3/uL (0.0-0.7) Basophils # (Auto) 0.0 x10^3/uL (0.0-0.2) Prothrombin Time 9.5 SEC (9.4-11.4) Prothrombin Time INR 0.9 (0.9-1.1) PTT 24 SEC (23-33) D-Dimer (Mei) 0.74 mg/L (0.00-0.50) H Sodium Level 141 mmol/L (136-145) Potassium Level 3.4 mmol/L (3.5-5.1) L Chloride Level 103 mmol/L (98-107) Carbon Dioxide Level 31 mmol/L (21-32) Anion Gap 7 (6-14) Blood Urea Nitrogen 11 mg/dL (7-20) Creatinine 0.9 mg/dL (0.6-1.0) Estimated GFR (Cockcroft-Gault) 65.8 Glucose Level 123 mg/dL (70-99) H Calcium Level 9.0 mg/dL (8.5-10.1) Magnesium Level 1.8 mg/dL (1.8-2.4) Total Bilirubin 0.2 mg/dL (0.2-1.0) Direct Bilirubin 0.1 mg/dL (0.0-0.2) Aspartate Amino Transferase (AST) 17 U/L (15-37) Alanine Aminotransferase (ALT) 17 U/L (14-59) Alkaline Phosphatase 83 U/L (46-116) Creatine Kinase 59 U/L (26-192) Creatine Kinase MB (Mass) < 0.5 ng/mL (0.0-3.6) Creatine Kinase MB Relative Index 0.8 % (0-4) Troponin I Quantitative < 0.017 ng/mL (0-0.055) ID-Aaz-W-Type Natriuretic Peptide 208 pg/mL (0-124) H Total Protein 7.0 g/dL (6.4-8.2) Albumin 3.2 g/dL (3.4-5.0) L Lipase 134 U/L (73-393) Urine Collection Type Unknown Urine Color Yellow Urine Clarity Clear Urine pH 7.0 Urine Specific [place] 1.020 Urine Protein Neg (NEG-TRACE) Urine Glucose (UA) Neg mg/dL (NEG) Urine Ketones (Stick) Neg mg/dL (NEG) Urine Blood Neg (NEG) Urine Nitrite Neg (NEG) Urine Bilirubin Neg (NEG) Urine Urobilinogen Dipstick 1 mg/dL (0.2 mg/dL) Urine Leukocyte Esterase Neg (NEG) Urine RBC 0 /HPF (0-2) Urine WBC Occ /HPF (0-4) Urine Squamous Epithelial Cells Few /LPF Urine Bacteria 0 /HPF (0-FEW) Urine Opiates Screen Neg (NEG) Urine Methadone Screen Neg (NEG) Urine Barbiturates Neg (NEG) Urine Phencyclidine Screen Neg (NEG) Urine Amphetamine/Methamphetamine Neg (NEG) Urine Benzodiazepines Screen Neg (NEG) Urine Cocaine Screen Neg (NEG) Urine Cannabinoids Screen Neg (NEG) Urine Ethyl Alcohol Neg (NEG) EKG EKG My interpretation of EKG shows sinus 79, Lt. axis, no findings of acute STEMI with contralateral changes.[] Radiology/Procedures Radiology/Procedures My interpretation of CXR / ABD shows []hardware neck, cardiomegaly, no free air under diaphragm, clips upper abd. and lower abd. Hardware in spine. DJD. Course & Med Decision Making Course & Med Decision Making Pertinent Labs and Imaging studies reviewed. (See chart for details) Discussed presentation, testing and tx. plan with Dr. Simon- will admit for hydration and further eval. [] Final Impression Final Impression 1. Chest Pain 2. Nausea[] 3. Elevated D-dimer 4. Hypokalemia 5. HTN 6. Syncopal Dragon Disclaimer Dragon Disclaimer This electronic medical record was generated, in whole or in part, using a voice recognition dictation system. SHAY SNEED MD Nov 30, 2017 23:59
[2017-12-01] MEDS ORDERED: ONDANSETRON ODT 4 MG TAB.RAPDIS PO ONE (01:00)
[2017-12-01] MEDS ORDERED: FAMOTIDINE 20 MG TABLET PO ONE (01:00)
[2017-12-01] MEDS ORDERED: ASPIRIN 81 MG TAB.CHEW PO ONE (01:00)
[2017-12-01] MEDS ORDERED: IV RINGERS SOLUTION,LACTATED 1,000 ML IV SCH (01:00)
[2017-12-01 01:17] LABS: BASO % 0 % (0-3); EOS # 0.2 x10^3/uL (0.0-0.7); EOS % 2 % (0-3); HEMATOCRIT 36.9 % (36.0-47.0); HEMOGLOBIN 12.2 g/dL (12.0-15.5); LYMPH # 1.5 x10^3/uL (1.0-4.8); LYMPH % 16 % (24-48); MEAN CORPUSCULAR HEMOGLOBIN 29 pg (25-35); MEAN CORPUSCULAR HGB CONC 33 g/dL (31-37); MEAN CORPUSCULAR VOLUME 88 fL (79-100); MONO # 0.5 x10^3/uL (0.0-1.1); MONO % 6 % (0-9); NEUT # 6.8 x10^3uL (1.8-7.7); NEUT % 76 % (31-73); PLATELET COUNT 293 x10^3/uL (140-400); RED BLOOD COUNT 4.18 x10^6/uL (3.50-5.40); RED CELL DISTRIBUTION WIDTH 14.9 % (11.5-14.5)
[2017-12-01 01:42] LABS: ALBUMIN 3.2 g/dL (3.4-5.0); ALK PHOS 83 U/L (46-116); ALT (SGPT) 17 U/L (14-59); ANION GAP 7 (6-14); AST (SGOT) 17 U/L (15-37); BLOOD UREA NITROGEN 11 mg/dL (7-20); CARBON DIOXIDE 31 mmol/L (21-32); CHLORIDE 103 mmol/L (98-107); CREATININE 0.9 mg/dL (0.6-1.0); DIRECT BILIRUBIN 0.1 mg/dL (0.0-0.2); GFR 65.8; GLUCOSE 123 mg/dL (70-99); LIPASE 134 U/L (73-393); MAGNESIUM 1.8 mg/dL (1.8-2.4); POTASSIUM 3.4 mmol/L (3.5-5.1); SODIUM 141 mmol/L (136-145); TOTAL BILIRUBIN 0.2 mg/dL (0.2-1.0)
[2017-12-01 01:48] LABS: BACTERIA,URINE 0 /HPF (0-FEW); BILIRUBIN,URINE NEG (NEG); CLARITY,URINE CLEAR; COLOR,URINE YELLOW; GLUCOSE,URINE NEG (NEG); NITRITE,URINE NEG (NEG); RBC,URINE 0 /HPF (0-2); SQUAMOUS EPITHELIAL CELL,UR FEW /LPF; UROBILINOGEN,URINE 1 mg/dL (0.2 mg/dL); WBC,URINE OCC /HPF (0-4)
[2017-12-01 01:54] LABS: AMPHETAMINE/METHAMPHETAMINE NEG (NEG); BARBITURATES NEG (NEG); BENZODIAZEPINES NEG (NEG); CANNABINOIDS NEG (NEG); COCAINE NEG (NEG); METHADONE NEG (NEG); OPIATES NEG (NEG); PHENCYCLIDINE NEG (NEG)
[2017-12-01] MEDS ORDERED: ONDANSETRON ODT 4 MG TAB.RAPDIS PO PRN (02:45)
[2017-12-01] MEDS ORDERED: ANTI-COAG MONITOR BY PHARMACY. MC PRN (02:45)
[2017-12-01] MEDS ORDERED: NITROGLYCERIN OINT 1 GM PACKET. TP ONE (03:00)
[2017-12-01] MEDS ORDERED: ENOXAPARIN ** NOTE DOSE ** SYRINGE SQ ONE (03:00)
[2017-12-01] MEDS ORDERED: POTASSIUM CHLORIDE 20 MEQ/15 ML ORAL LIQUID. PO ONE (03:00)
[2017-12-01] MEDS ORDERED: MORPHINE SULFATE 10 MG/ML SYRINGE. SQ ONE (04:00)
[2017-12-01 04:46] VITALS: BP 143/86
[2017-12-01] MEDS ORDERED: ALBUTEROL SULFATE 8GM INHALER. IH PRN (05:00)
[2017-12-01] MEDS ORDERED: ALBUTEROL SULFATE 2.5 MG/3 ML NEBU. NEB PRN (05:15)
[2017-12-01 06:23] VITALS: BP 115/74
--- NOTE | 2017-12-01 07:46 | RAD ---
Acute abdominal series with single view chest 12/01/2017 3:27 AM INDICATION: Nausea and vomiting with chest pain. COMPARISON: Chest radiograph November 27, 2017 TECHNIQUE: Single view of the chest, upright view of the abdomen and supine view of abdomen are provided. FINDINGS: The cardiomediastinal silhouette is similar in appearance. Thoracic aorta appears tortuous and ectatic. There are no pleural effusions. There is no pulmonary vascular congestion. There is no pneumothorax. The lungs are clear. Cholecystectomy clips are identified in the right upper quadrant. There is no free intraperitoneal air. There are no dilated loops of small or large bowel. There are no differential air-fluid levels. No definite evidence for bowel wall thickening. No suspicious calcifications are present. No significant osseous abnormality is identified. Anterior cervical discectomy and fusion hardware is partially profiled. Posterior and interbody fusion is identified at the lumbosacral junction. IMPRESSION: No acute cardiopulmonary process. Tortuous and ectatic thoracic aorta appears similar to the prior examination. Nonobstructive bowel gas pattern. Electronically signed by: Che Uribe MD (12/01/2017 7:42 AM) [facility]
[2017-12-01] MEDS ORDERED: CITALOPRAM 20 MG TABLET. PO SCH (09:00)
[2017-12-01] MEDS ORDERED: ASPIRIN 81 MG TAB.CHEW PO SCH (09:00)
[2017-12-01] MEDS ORDERED: ENOXAPARIN ** NOTE DOSE ** SYRINGE SQ SCH (09:00)
[2017-12-01] MEDS ORDERED: LISINOPRIL 20 MG TABLET PO SCH (09:00)
[2017-12-01] MEDS ORDERED: NITROGLYCERIN OINT 1 GM PACKET. TP SCH (09:00)
[2017-12-01] MEDS ORDERED: FAMOTIDINE 20 MG TABLET PO SCH (09:00)
[2017-12-01] MEDS: IV RINGERS SOLUTION,LACTATED 1,000 ML IV SCH ×2 (09:30→13:00)
[2017-12-01 10:34] VITALS: BP 117/74
--- NOTE | 2017-12-01 10:57 | PDOC ---
PROGRESS NOTES Diagnosis Problem Problems Medical Problems: (1) Chest pain Status: Acute Assessment Problems Medical Problems: (1) Chest pain Status: Acute 1. Chest pain, atypical - Rafa negative Negative stress test x3 over the last 3 years. Most recent in December 2016. Echo done 11/28/17 revealed normal LV function and wall motion. Considering recurrent chest pain with 2 admissions in the last 30 days will continue nitrates, add low dose beta dar and transfer for cardiac cath for definitive diagnosis. 2. presyncope - likely vasovagal. Consider outpatient event monitoring. 3. hypertension - controlled on home antihypertensives 4. elevated d dimer - CT negative for central PE, venous duplex negative for DVT on 11/28/17 5. hyperlipidemia - continue statin 6. family history of premature coronary disease Subjective addendum to consult of 11/28/17. Ms Goddard returns with complaints of repeat chest pain. She reports again midsternal pain which started at rest with radiation of sharp tingling type pain to both arms and both legs. she also reports associated headache with nausea and vomiting. She denies any exacerbating or relieving factors. She reports an episode of lightheadedness and "almost blacking out" that occurred directly after a vomiting episode. See full consult from 11/28/17 Objective Vital Signs Date Time Temp Pulse Resp B/P (MAP) Pulse Ox O2 Delivery O2 Flow Rate FiO2 12/01/17 10:34 98.0 59 20 117/74 (88) 90 Room Air Intake and Output 12/01/17 07:00 Intake Total 300 ml Balance 300 ml Intake Oral 0 ml IV Total 300 ml Abdomen: Normal bowel sounds, Soft, No tenderness Heart: Regular rate, Normal S1, Normal S2 Extremities: No cyanosis, No edema, Normal pulses General: Alert, Oriented X3, Cooperative, No acute distress HEENT: Atraumatic, EOMI Lungs: Clear to auscultation, Normal air movement Neuro: Normal speech, Strength at 5/5 X4 ext Psych/Mental Status: Mental status NL, Mood NL Review of Relevant I have reviewed the following items kevin (where applicable) has been applied. Labs Laboratory Tests Test 12/01/17 00:45 12/01/17 01:30 12/01/17 06:42 White Blood Count 9.0 x10^3/uL (4.0-11.0) Red Blood Count 4.18 x10^6/uL (3.50-5.40) Hemoglobin 12.2 g/dL (12.0-15.5) Hematocrit 36.9 % (36.0-47.0) Mean Corpuscular Volume 88 fL (79-100) Mean Corpuscular Hemoglobin 29 pg (25-35) Mean Corpuscular Hemoglobin Concent 33 g/dL (31-37) Red Cell Distribution Width 14.9 % (11.5-14.5) Platelet Count 293 x10^3/uL (140-400) Neutrophils (%) (Auto) 76 % (31-73) Lymphocytes (%) (Auto) 16 % (24-48) Monocytes (%) (Auto) 6 % (0-9) Eosinophils (%) (Auto) 2 % (0-3) Basophils (%) (Auto) 0 % (0-3) Neutrophils # (Auto) 6.8 x10^3uL (1.8-7.7) Lymphocytes # (Auto) 1.5 x10^3/uL (1.0-4.8) Monocytes # (Auto) 0.5 x10^3/uL (0.0-1.1) Eosinophils # (Auto) 0.2 x10^3/uL (0.0-0.7) Basophils # (Auto) 0.0 x10^3/uL (0.0-0.2) Prothrombin Time 9.5 SEC (9.4-11.4) Prothromb Time International Ratio 0.9 (0.9-1.1) Activated Partial Thromboplast Time 24 SEC (23-33) D-Dimer (Mei) 0.74 mg/L (0.00-0.50) Sodium Level 141 mmol/L (136-145) Potassium Level 3.4 mmol/L (3.5-5.1) Chloride Level 103 mmol/L (98-107) Carbon Dioxide Level 31 mmol/L (21-32) Anion Gap 7 (6-14) Blood Urea Nitrogen 11 mg/dL (7-20) Creatinine 0.9 mg/dL (0.6-1.0) Estimated GFR (Cockcroft-Gault) 65.8 Glucose Level 123 mg/dL (70-99) Calcium Level 9.0 mg/dL (8.5-10.1) Magnesium Level 1.8 mg/dL (1.8-2.4) Total Bilirubin 0.2 mg/dL (0.2-1.0) Direct Bilirubin 0.1 mg/dL (0.0-0.2) Aspartate Amino Transf (AST/SGOT) 17 U/L (15-37) Alanine Aminotransferase (ALT/SGPT) 17 U/L (14-59) Alkaline Phosphatase 83 U/L (46-116) Creatine Kinase 59 U/L (26-192) Creatine Kinase MB (Mass) < 0.5 ng/mL (0.0-3.6) Creatine Kinase MB Relative Index 0.8 % (0-4) Troponin I Quantitative < 0.017 ng/mL (0-0.055) < 0.017 ng/mL (0-0.055) XN-Cvd-A-Type Natriuretic Peptide 208 pg/mL (0-124) Total Protein 7.0 g/dL (6.4-8.2) Albumin 3.2 g/dL (3.4-5.0) Lipase 134 U/L (73-393) Urine Collection Type Unknown Urine Color Yellow Urine Clarity Clear Urine pH 7.0 Urine Specific [place] 1.020 Urine Protein Neg (NEG-TRACE) Urine Glucose (UA) Neg mg/dL (NEG) Urine Ketones (Stick) Neg mg/dL (NEG) Urine Blood Neg (NEG) Urine Nitrite Neg (NEG) Urine Bilirubin Neg (NEG) Urine Urobilinogen Dipstick 1 mg/dL (0.2 mg/dL) Urine Leukocyte Esterase Neg (NEG) Urine RBC 0 /HPF (0-2) Urine WBC Occ /HPF (0-4) Urine Squamous Epithelial Cells Few /LPF Urine Bacteria 0 /HPF (0-FEW) Urine Opiates Screen Neg (NEG) Urine Methadone Screen Neg (NEG) Urine Barbiturates Neg (NEG) Urine Phencyclidine Screen Neg (NEG) Urine Amphetamine/Methamphetamine Neg (NEG) Urine Benzodiazepines Screen Neg (NEG) Urine Cocaine Screen Neg (NEG) Urine Cannabinoids Screen Neg (NEG) Urine Ethyl Alcohol Neg (NEG) Medications Current Medications Aspirin (Children'S Aspirin) 324 mg 1X ONCE PO Last administered on 12/01/17at 01:13; Start 12/01/17 at 01:00; Stop 12/01/17 at 01:01; Status DC Lactated Ringer's 1,000 ml @ 100 mls/hr Q10H IV Last administered on 12/01/17at 01:12; Start 12/01/17 at 01:00; Stop 12/01/17 at 10:59 Famotidine (Pepcid) 20 mg 1X ONCE PO Last administered on 12/01/17at 01:12; Start 12/01/17 at 01:00; Stop 12/01/17 at 01:01; Status DC Ondansetron HCl (Zofran Odt) 8 mg 1X ONCE PO Last administered on 12/01/17at 01: 13; Start 12/01/17 at 01:00; Stop 12/01/17 at 01:01; Status DC Potassium Chloride (KCl Oral Soln) 40 meq 1X ONCE PO Last administered on at 03:03; Start 12/01/17 at 03:00; Stop 12/01/17 at 03:01; Status DC Enoxaparin Sodium (Lovenox 100mg Syringe) 100 mg 1X ONCE SQ Last administered on 12/01/17at 03:00; Start 12/01/17 at 03:00; Stop 12/01/17 at 03:01; Status DC Nitroglycerin (Nitro-Bid Oint) 1 inch 1X ONCE TP Last administered on at 03:00; Start 12/01/17 at 03:00; Stop 12/01/17 at 03:01; Status DC Aspirin (Children'S Aspirin) 81 mg DAILY PO Last administered on 12/01/17at 09:24 ; Start 12/01/17 at 09:00 Nitroglycerin (Nitro-Bid Oint) 1 inch TID TP Last administered on 12/01/17at 09: 25; Start 12/01/17 at 09:00 Enoxaparin Sodium (Lovenox 100mg Syringe) 100 mg BID SQ Last administered on 12/01/17at 09:24; Start 12/01/17 at 09:00 Info (Anti-Coagulation Monitoring By Pharmacy) 1 each PRN DAILY PRN MC SEE COMMENTS; Start 12/01/17 at 02:45 Ondansetron HCl (Zofran Odt) 8 mg QIDPRN PRN PO nv Last administered on at 09:23; Start 12/01/17 at 02:45 Famotidine (Pepcid) 20 mg BID PO Last administered on 12/01/17 09:23; Start 12/01/17 at 09:00 Lactated Ringer's 1,000 ml @ 100 mls/hr Q10H IV Last administered on 12/01/17 09:30; Start 12/01/17 at 03:00 Morphine Sulfate (Morphine 10mg Syringe) 10 mg 1X ONCE SQ Last administered on 12/01/17at 03:49; Start 12/01/17 at 04:00; Stop 12/01/17 at 04:01; Status DC Albuterol Sulfate (Ventolin Hfa) 1 puff PRN Q4HRS PRN IH FOR ASTHMA; Start 12/01 at 05:00; Status UNV Atorvastatin Calcium (Lipitor) 40 mg QHS PO ; Start 12/01/17 at 21:00 Citalopram Hydrobromide (CeleXA) 20 mg DAILY PO Last administered on 12/01/17at 09:24; Start 12/01/17 at 09:00 Lisinopril (Prinivil) 80 mg DAILY PO Last administered on 12/01/17at 09:23; Start 12/01/17 at 09:00 Albuterol Sulfate (Ventolin) 2.5 mg PRN Q4HRS PRN NEB SHORTNESS OF BREATH; Start 12/01/17 at 05:15 Active Scripts Active Reported Proventil Hfa Inhaler (Albuterol Sulfate) 6.7 Gm Hfa.aer.ad 1 Puff IH PRN Q4HRS PRN Zestril (Lisinopril) 40 Mg Tablet 80 Mg PO DAILY Lipitor (Atorvastatin Calcium) 40 Mg Tablet 1 Tab PO DAILY Escitalopram Oxalate 10 Mg Tablet 1 Tab PO DAILY Vitals/I & O Vital Sign - Last 24 Hours 12/01/17 12/01/17 12/01/17 12/01/17 00:00 00:45 01:15 01:45 Temp 99.0 Pulse 81 78 76 75 Resp 16 16 18 16 B/P (MAP) 154/76 (102) 132/79 (96) 110/83 (92) Pulse Ox 95 94 93 95 O2 Delivery Room Air Room Air Room Air Room Air 12/01/17 12/01/17 12/01/17 12/01/17 02:15 02:45 03:00 03:15 Pulse 69 68 70 65 Resp 16 22 18 B/P (MAP) 128/95 (106) 142/89 (106) 142/89 147/91 (109) Pulse Ox 95 93 94 O2 Delivery Room Air Room Air Room Air 12/01/17 12/01/17 12/01/17 12/01/17 04:00 04:40 04:46 06:12 Temp 98.2 Pulse 70 69 Resp 20 22 20 B/P (MAP) 139/89 (106) 143/86 (105) Pulse Ox 94 92 O2 Delivery Room Air Room Air Room Air Room Air 12/01/17 12/01/17 12/01/17 12/01/17 06:23 09:23 09:25 10:34 Temp 97.5 98.0 Pulse 67 67 67 59 Resp 20 20 B/P (MAP) 115/74 (88) 115/74 115/74 117/74 (88) Pulse Ox 92 90 O2 Delivery Room Air Room Air Intake and Output 11/30/17 11/30/17 12/01/17 15:00 23:00 07:00 Intake Total 300 ml Balance 300 ml CLAUDIA CABA [employer] Dec 01, 2017 10:57
[2017-12-01 15:07] VITALS: BP 133/77
--- NOTE | 2017-12-01 15:08 | SSS ---
ADMIT DATE: 12/01/2017 The patient is a 52-year-old female patient. MARY MCDANIELS MD DR: REY/johnny JOB#: [id number] / [id number]
--- NOTE | 2017-12-01 15:33 | SSS ---
ADMIT DATE: 12/01/2017 HISTORY OF PRESENT ILLNESS: The patient is a 52-year-old female patient, who came complaining of chest pain and nausea and vomiting and she nearly blacked out. A complaint of a syncopal episode at home. She did not recall her heart is racing prior to the syncopal episode. She was recently admitted here and was discharged on 11/28/2017. She apparently has had 3 stress test negative over last 3 years. She has most recently in December 2016. Her echocardiogram done on 11/28/2017 revealed normal left ventricular function and wall motion. She did have an elevated D-dimer; however, her CT angio was negative for PE and venous Doppler ultrasound were negative for DVT, only 3 days ago and because of the recurrent complaints, the Cardiology team has evaluated her. She has so far 2 sets of cardiac enzymes that were negative and therefore, a decision was made to transfer her to [facility] for cardiac catheterization to basically get into the cause of her problem, but seemed to be clinically more likely some form of radiculopathy less arrhythmia. PAST MEDICAL HISTORY: Significant for hypertension, hyperlipidemia, bronchial asthma, and history of DVT. PAST SURGICAL HISTORY: Significant for right total knee arthroplasty in 2016, back surgery in 2016, cholecystectomy, total abdominal hysterectomy, bilateral salpingo-oophorectomy as well as colonoscopy. ALLERGIES: She is allergic to PENICILLIN, CODEINE, IBUPROFEN, and TRAMADOL. FAMILY HISTORY: She has one brother who has 4 stents and one sister has 2 stents. Her father at age of 49 because of myocardial infarction. Mother at the age of 74 because of breast cancer. She was twice and twice. She is currently single, lives with her boyfriend. SOCIAL HISTORY: She has 2 sons. She never smoked, does not drink alcohol or recreational drugs. She is on disability. REVIEW OF SYSTEMS: The patient has bilateral cataracts that will require surgery next year; however, she has no glaucoma or macular degeneration. Denied any earache, tinnitus or sensorineural deafness. Denied any nosebleeds, stuffy nose or postnasal drip. Denied any sore throat, sore tongue, toothache, hoarseness of voice or difficulty swallowing. Denied any nausea, vomiting, diarrhea or constipation. Denied any hematemesis, melena or hematochezia. Denied any dysuria, frequency or hematuria. Denied any chills, rigors or fever. PHYSICAL EXAMINATION: GENERAL: On arrival to the Emergency Room, she looked well and was clearly in no apparent respiratory distress. No pallor, jaundice, cyanosis or thyromegaly. No jugular venous distention. No limb edema. VITAL SIGNS: Her heart rate was 67, blood pressure was 115/74, temperature was 97.5, respiratory rate 20, and oxygen saturation was 92% on room air. HEAD, EYES, EARS, NOSE, and THROAT: Showed normocephalic, atraumatic. NECK: Supple. HEART: Showed normal first and second sounds. No gallop, rub or murmur. CHEST: Clear to auscultation. No crepitation or rhonchi. ABDOMEN: Distended, soft, nontender. No guarding or rigidity. No organomegaly. Hernial orifice intact. Bowel sounds normal. NEUROLOGIC: She was awake, alert, responding appropriately. Cranial nerves intact. EXTREMITIES: She moves extremities without difficulty. She ambulates without assistance or assistive devices. LABORATORY DATA: Showed a white cell count of 9000, hemoglobin 12, hematocrit 37, MCV 88 and platelet count 293,000. Her chemistry showed a serum sodium 141, potassium 3.4, chloride was 103, bicarbonate 31, anion gap of 7, BUN 11, creatinine 0.9, estimated GFR was 66 mL per minute. Her glucose 123, calcium was 9, magnesium was 1.8. Total bilirubin, AST, ALT, alkaline phosphatase were normal. Total protein 7, albumin was 3.2, lipase 134. TSH was 7.360. Two sets of cardiac enzymes showed troponin to be less than 0.017. Her D-dimer 0.74. Prothrombin time 9.5, INR of 0.9, aPTT was 24. Urinalysis was unremarkable and tox screen was negative. Her acute abdomen series showed no acute cardiopulmonary process, nonobstructive bowel gas pattern. The patient was seen by the Cardiology team and their recommendation is for her to be transferred to [facility] for cardiac catheterization. FINAL DISCHARGE DIAGNOSES: Chest pain is atypical. Apparently, has 3 negative stress test over the last 3 years and most recently was in December 2016. Her echocardiogram done in 11/28/2017 revealed normal left ventricular systolic function and wall motion. Elevated D-dimer. CT angio of the chest was negative for PE. Venous Doppler ultrasound negative for DVT. Hypertension, well controlled. Hyperlipidemia, on statin. She has a family history of premature coronary artery disease modifiable presyncope, likely vasovagal. We will consider outpatient event monitoring. MRAY MCDANIELS MD DR: REY/johnny JOB#: [id number] / [id number]
--- NOTE | 2017-12-01 18:40 | EKG ---
[address] [address] Test Date: 2017-12-01 Test Time: 00:24:32 Pat Name: VELASQUEZ WRIGHT Department: Room: 122 A Gender: F Senior Information Developer: ELVIE : 1965 Requested By: SHAY SNEED Order Number: [id number] Reading MD: Eben Angulo MD Measurements Intervals [place] Rate: 79 P: 31 MD: 154 QRS: -7 QRSD: 86 T: 12 QT: 370 QTc: 425 Interpretive Statements SINUS RHYTHM Electronically Signed On 12-02-2017 11:48:33 CDT by Eben Angulo MD
[2017-12-01] MEDS ORDERED: METOPROLOL TART IMMED RELEASE 25 MG TABLET PO SCH (21:00)
[2017-12-01] MEDS ORDERED: ATORVASTATIN CALCIUM 20 MG TABLET PO SCH (21:00)
== END 2017-12-01 18:32 | disposition short-term general hospital (02) ==
LOC: ER 23:57 → INTOOBSV 12-01 02:15 → 1 SOUTH 12-01 02:15
PROVIDERS: ADMIT Internal Medicine; ATTEND Internal Medicine
DX: R07.89 Other chest pain (principal); R55 Syncope and collapse; I10 Essential (primary) hypertension; E78.5 Hyperlipidemia, unspecified; R79.1 Abnormal coagulation profile; J45.909 Unspecified asthma, uncomplicated; M54.10 Radiculopathy, site unspecified; Z80.3 Family history of malignant neoplasm of breast; Z82.49 Family history of ischemic heart disease and other diseases of the circulatory system; Z86.718 Personal history of other venous thrombosis and embolism; Z90.710 Acquired absence of both cervix and uterus; Z96.651 Presence of right artificial knee joint; Z79.899 Other long term (current) drug therapy
CPT/HCPCS: 36415; 74022; 80048; 80076; 80307; 81001; 82553; 83690; 83735; 83880; 84443; 84484; 85025; 85379; 85610; 85730; 93005; 96361; 96372; 96374; 99285; G0378; J1650; J2270; J3010; J7120; Q0162; 96360; G0379; G0479

== ENCOUNTER 2017-12-19 21:11 | Emergency (ER) | payer OTHER ==
[~2017-12-19] VITALS: Ht 160 cm; Wt 99.4 kg
[2017-12-19] MEDS ORDERED: ASPIRIN 81 MG TAB.CHEW PO ONE (21:30)
[2017-12-19 21:34] LABS: BASO # 0.1 x10^3/uL (0.0-0.2); BASO % 1 % (0-3); EOS # 0.2 x10^3/uL (0.0-0.7); EOS % 3 % (0-3); HEMATOCRIT 37.8 % (36.0-47.0); HEMOGLOBIN 12.8 g/dL (12.0-15.5); LYMPH # 2.1 x10^3/uL (1.0-4.8); LYMPH % 25 % (24-48); MEAN CORPUSCULAR HEMOGLOBIN 30 pg (25-35); MEAN CORPUSCULAR HGB CONC 34 g/dL (31-37); MEAN CORPUSCULAR VOLUME 87 fL (79-100); MONO # 0.5 x10^3/uL (0.0-1.1); MONO % 6 % (0-9); NEUT # 5.6 x10^3uL (1.8-7.7); NEUT % 66 % (31-73); PLATELET COUNT 366 x10^3/uL (140-400); RED BLOOD COUNT 4.33 x10^6/uL (3.50-5.40); RED CELL DISTRIBUTION WIDTH 14.7 % (11.5-14.5); WHITE BLOOD COUNT 8.6 x10^3/uL (4.0-11.0)
[2017-12-19 21:45] LABS: ALBUMIN 3.4 g/dL (3.4-5.0); ALBUMIN/GLOBULIN RATIO 0.9 (1.0-1.7); CALCIUM 9.2 mg/dL (8.5-10.1); CREATININE 0.9 mg/dL (0.6-1.0); GFR 65.8; POTASSIUM 3.9 mmol/L (3.5-5.1); TOTAL BILIRUBIN 0.2 mg/dL (0.2-1.0); TOTAL PROTEIN 7.3 g/dL (6.4-8.2)
[2017-12-19] MEDS ORDERED: NITROGLYCERIN SUBLINGUAL 0.4 MG BOTTLE OF 25. SL ONE (22:30)
--- NOTE | 2017-12-19 22:32 | PHYS DOC ---
Past History Past Medical History: Anxiety, Asthma, CAD, High Cholesterol, Hypertension Past Surgical History: Hysterectomy, Knee Replacement, Other Alcohol Use: None Drug Use: None Adult General Chief Complaint Chief Complaint: CHEST PAIN HPI HPI 52-year-old female returns emergency room with sudden onset chest pain. This started about 3 hours ago while the patient was sitting on a couch. She had just finished eating when it started. The pain is a sharp sensation in the left side of her chest. The pain is 10 out of 10. She states it is still 10 out of 10. She denies shortness of breath or diaphoresis. She has no history of GERD. The patient has been seen in this emergency room a couple times and another hospital at least once in the last few weeks. She had a stress test and a cardiac catheter done at [place] which found a 52% blockage. There was no stent placed. She was not discharged on any angina medications. She denies cough , sore throat, fever or chills. Review of Systems Review of Systems Constitutional: Denies fever or chills [] Eyes: Denies change in visual acuity, redness, or eye pain [] HENT: Denies nasal congestion or sore throat [] Respiratory: Denies cough or shortness of breath [] Cardiovascular: No additional information not addressed in HPI [] GI: Denies abdominal pain, nausea, vomiting, bloody stools or diarrhea [] : Denies dysuria or hematuria [] Musculoskeletal: Denies back pain or joint pain [] Integument: Denies rash or skin lesions [] Neurologic: Denies headache, focal weakness or sensory changes [] Endocrine: Denies polyuria or polydipsia [] All other systems were reviewed and found to be within normal limits, except as documented in this note. Current Medications Current Medications Current Medications Medications (Trade) Dose Ordered Sig/Ophelia Start Time Stop Time Status Last Admin Dose Admin Aspirin (Children'S Aspirin) 324 mg 1X ONCE 12/19/17 21:30 12/19/17 21:33 DC Allergies Allergies Allergies Coded Allergies Type Severity Reaction Last Updated Verified Penicillins Allergy Intermediate 11/28/17 Yes codeine Allergy Intermediate 11/28/17 Yes ibuprofen Allergy Intermediate 11/28/17 Yes tramadol Allergy Intermediate 11/28/17 Yes Physical Exam Physical Exam Constitutional: Well developed, well nourished, no acute distress, non-toxic appearance. [] HENT: Normocephalic, atraumatic, bilateral external ears normal, oropharynx moist, no oral exudates, nose normal. [] Eyes: PERRLA, EOMI, conjunctiva normal, no discharge. [] Neck: Normal range of motion, no tenderness, supple, no stridor. [] Cardiovascular:Heart rate regular rhythm, no murmur [] Lungs & Thorax: Bilateral breath sounds clear to auscultation [] Abdomen: Bowel sounds normal, soft, no tenderness, no masses, no pulsatile masses. [] Skin: Warm, dry, no erythema, no rash. [] Back: No tenderness, no CVA tenderness. [] Extremities: No tenderness, no cyanosis, no clubbing, ROM intact, no edema. [] Neurologic: Alert and oriented X 3, normal motor function, normal sensory function, no focal deficits noted. [] Psychologic: Affect normal, judgement normal, mood normal. [] Current Patient Data Vital Signs Vital Signs Date Time Temp Pulse Resp B/P (MAP) Pulse Ox O2 Delivery O2 Flow Rate FiO2 12/19/17 22:17 89 16 138/78 (98) 97 Room Air 12/19/17 21:17 98.4 Lab Results Laboratory Tests Test 12/19/17 21:15 White Blood Count 8.6 x10^3/uL (4.0-11.0) Red Blood Count 4.33 x10^6/uL (3.50-5.40) Hemoglobin 12.8 g/dL (12.0-15.5) Hematocrit 37.8 % (36.0-47.0) Mean Corpuscular Volume 87 fL (79-100) Mean Corpuscular Hemoglobin 30 pg (25-35) Mean Corpuscular Hemoglobin Concent 34 g/dL (31-37) Red Cell Distribution Width 14.7 % (11.5-14.5) H Platelet Count 366 x10^3/uL (140-400) Neutrophils (%) (Auto) 66 % (31-73) Lymphocytes (%) (Auto) 25 % (24-48) Monocytes (%) (Auto) 6 % (0-9) Eosinophils (%) (Auto) 3 % (0-3) Basophils (%) (Auto) 1 % (0-3) Neutrophils # (Auto) 5.6 x10^3uL (1.8-7.7) Lymphocytes # (Auto) 2.1 x10^3/uL (1.0-4.8) Monocytes # (Auto) 0.5 x10^3/uL (0.0-1.1) Eosinophils # (Auto) 0.2 x10^3/uL (0.0-0.7) Basophils # (Auto) 0.1 x10^3/uL (0.0-0.2) Sodium Level 140 mmol/L (136-145) Potassium Level 3.9 mmol/L (3.5-5.1) Chloride Level 103 mmol/L (98-107) Carbon Dioxide Level 30 mmol/L (21-32) Anion Gap 7 (6-14) Blood Urea Nitrogen 9 mg/dL (7-20) Creatinine 0.9 mg/dL (0.6-1.0) Estimated GFR (Cockcroft-Gault) 65.8 BUN/Creatinine Ratio 10 (6-20) Glucose Level 130 mg/dL (70-99) H Calcium Level 9.2 mg/dL (8.5-10.1) Total Bilirubin 0.2 mg/dL (0.2-1.0) Aspartate Amino Transferase (AST) 16 U/L (15-37) Alanine Aminotransferase (ALT) 20 U/L (14-59) Alkaline Phosphatase 88 U/L (46-116) Troponin I Quantitative < 0.017 ng/mL (0-0.055) Total Protein 7.3 g/dL (6.4-8.2) Albumin 3.4 g/dL (3.4-5.0) Albumin/Globulin Ratio 0.9 (1.0-1.7) L EKG EKG Sinus rhythm, rate 88, normal axis, Q waves in lead 3, no ST elevations or depressions.[] Radiology/Procedures Radiology/Procedures [] Impressions: PORTABLE CHEST 1V History: Chest pain Comparison: December 01, 2017 Findings: Single view of the chest is submitted. Prominence of mediastinal width is unchanged. Cardiac silhouette is similar. There is no pneumothorax, pleural fluid, significant infiltrate. Impression: 1. No acute radiographic abnormality is identified, similar prominence of mediastinal width. Electronically signed by: Maren Michel MD (12/19/2017 10:54 PM) [facility] DICTATED AND SIGNED BY: MAREN MICHEL MD DATE: 12/19/17 1723 CC: CHRIST TORRES DO; BRENDA RAMEY MD ~ Course & Med Decision Making Course & Med Decision Making Pertinent Labs and Imaging studies reviewed. (See chart for details) The patient's EKG is unremarkable. Her labs are unremarkable. Her troponin is negative. Her chest x-ray has a wide mediastinum, but this is similar to chest x -ray 11/27/2017. She had a CT angiogram at that time that showed groundglass opacities, no definite pulmonary embolus seen, no definite dissection flap seen. The patient states tonight at 10 pain, but she is laying calmly in the bed. She is not diaphoretic. Her heart rate is 84. We gave the patient states nitroglycerin and this did help with her pain. Given her recent CT angiogram and cardiac catheterization I'm not sure there is any reason to keep the patient in the hospital. I did discuss this with cardiology, Dr. Urbano and he agreed that she could be discharged home. 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 He is stable for discharge at this time. [] Dragon Disclaimer Dragon Disclaimer This electronic medical record was generated, in whole or in part, using a voice recognition dictation system. Departure Departure: Referrals: BRENDA RAMEY MD (PCP) CHRIST TORRES DO Dec 19, 2017 22:32
--- NOTE | 2017-12-19 22:57 | RAD ---
PORTABLE CHEST 1V History: Chest pain Comparison: December 01, 2017 Findings: Single view of the chest is submitted. Prominence of mediastinal width is unchanged. Cardiac silhouette is similar. There is no pneumothorax, pleural fluid, significant infiltrate. Impression: 1. No acute radiographic abnormality is identified, similar prominence of mediastinal width. Electronically signed by: Vineet Grullon MD (12/19/2017 10:54 PM) [facility]
[2017-12-19 23:11] VITALS: BP 107/61
--- NOTE | 2017-12-21 15:26 | EKG ---
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
== END 2017-12-19 23:37 | disposition home or self-care (01) ==
LOC: ER 21:11
DX: R07.89 Other chest pain (principal); F41.9 Anxiety disorder, unspecified; J45.909 Unspecified asthma, uncomplicated; I25.10 Atherosclerotic heart disease of native coronary artery without angina pectoris; E78.00 Pure hypercholesterolemia, unspecified; I10 Essential (primary) hypertension; Z88.0 Allergy status to penicillin; Z88.5 Allergy status to narcotic agent; Z88.6 Allergy status to analgesic agent
CPT/HCPCS: 36415; 71045; 80053; 84484; 85025; 93005; 99285

== ENCOUNTER 2017-12-26 20:33 | Observation (INO) | payer OTHER ==
[~2017-12-26] VITALS: Ht 160 cm; Wt 98.4 kg
--- NOTE | 2017-12-26 20:35 | ED.ADGEN ---
Past History Past Medical History: Anxiety, Asthma, CAD, High Cholesterol, Hypertension Past Surgical History: Hysterectomy, Knee Replacement, Other Alcohol Use: None Drug Use: None Adult General Chief Complaint Chief Complaint ".. I ve been coughing so hard... I am vomiting... this been going on 3 months..".." My chest pain is worse tonight... I think it is from all the coughing...'".. " I did have a cath. at [facility] on November 30.. I have 50% obstruction of one my cardiac arteries... but they are going to wait to do anything... HPI HPI Patient is a 52 year old female who presents with above hx and complaints of coughing into the point of vomiting. Patient states symptoms have been going on for months. Patient states coffee tonight associated with chest pain. Patient reports chest pain on deep respirations and cough. Patient recently had cardiac catheter on 12/10 at [facility] and found to have some coronary artery vessel obstruction but no findings requiring stent placement. Patient does have a past history of pulmonary embolisms. Sources embolisms were not determined. Last episode was 2014. Pt. has hx of borderline DM- not currently on meds. Pt. normally follows with Dr. Calloway Review of Systems Review of Systems Constitutional: Denies fever or chills [] Eyes: Denies change in visual acuity, redness, or eye pain [] HENT: Denies nasal congestion or sore throat [] Respiratory: Complaints of cough and shortness of breath [] Cardiovascular: No additional information not addressed in HPI [] GI: Denies abdominal pain, nausea, vomiting, bloody stools or diarrhea [] : Denies dysuria or hematuria [] Musculoskeletal: Denies back pain or joint pain [] Integument: Denies rash or skin lesions [] Neurologic: Denies headache, focal weakness or sensory changes [] Endocrine: Denies polyuria or polydipsia [] All other systems were reviewed and found to be within normal limits, except as documented in this note. Family History Family History Noncontributory Current Medications Current Medications Current Medications Medications (Trade) Dose Ordered Sig/Ophelia Start Time Stop Time Status Last Admin Dose Admin Albuterol Sulfate (Ventolin Hfa Inhaler) 2 puff 1X ONCE 12/26/17 23:45 12/26/17 23:48 DC 12/27/17 00:00 2 PUFF Albuterol/ Ipratropium (Duoneb) 3 ml 1X ONCE 12/26/17 22:00 12/26/17 22:01 DC 12/26/17 22:11 3 ML Aspirin (Children'S Aspirin) 324 mg 1X ONCE 12/26/17 21:30 12/26/17 21:31 DC 12/26/17 21:47 324 MG Enoxaparin Sodium (Lovenox 100mg Syringe) 100 mg 1X ONCE 12/26/17 23:45 12/26/17 23:48 DC 12/26/17 00:09 100 MG Iohexol (Omnipaque 300 Mg/ml) 75 ml 1X ONCE 12/26/17 23:45 12/26/17 23:48 DC 12/26/17 23:50 75 ML Lactated Ringer's 1,000 ml @ 100 mls/hr Q10H 12/26/17 21:11 12/27/17 07:10 12/26/17 21:45 100 MLS/HR Methylprednisolone Sodium Succinate (SOLU-Medrol 125MG VIAL) 125 mg 1X ONCE 12/26/17 21:30 12/26/17 21:31 DC 12/26/17 21:47 125 MG See nursing for home meds Allergies Allergies Allergies Coded Allergies Type Severity Reaction Last Updated Verified Penicillins Allergy Intermediate 11/28/17 Yes codeine Allergy Intermediate 11/28/17 Yes ibuprofen Allergy Intermediate 11/28/17 Yes tramadol Allergy Intermediate 11/28/17 Yes Physical Exam Physical Exam Constitutional: Moderate distress, non-toxic appearance. [] HENT: Normocephalic, atraumatic, bilateral external ears normal, oropharynx moist, no oral exudates, nose normal. [] Eyes: PERRLA, EOMI, conjunctiva normal, no discharge. Glasses Neck: Normal range of motion, no tenderness, supple, no stridor. [] Old surgery scar Cardiovascular: Tachycardia Heart rate regular rhythm, no murmur []. PMI to the left Lungs & Thorax: Bilateral breath sounds equal at apex with scattered wheezes on auscultation []Episodes of spasmatic coughing. Abdomen: Bowel sounds normal, soft, no tenderness, no masses, no pulsatile masses. [] Old surgery scar Skin: Warm, dry, no erythema, no rash. [] Tattoo 89ERS Lt leg. Back: No tenderness, no CVA tenderness. [] Scar Lumbar Extremities: No tenderness, no cyanosis, no clubbing, ROM intact, no edema. [] No cording appreciated. Scar Rt. knee Neurologic: Alert and oriented X 3, normal motor function, normal sensory function, no focal deficits noted. [] Psychologic: Affect anxious, judgement normal, mood normal. [] Current Patient Data Vital Signs Vital Signs Date Time Temp Pulse Resp B/P (MAP) Pulse Ox O2 Delivery O2 Flow Rate FiO2 12/26/17 22:20 99 19 151/87 (108) 93 Room Air 12/26/17 20:57 98.1 Lab Results Laboratory Tests Test 12/26/17 21:18 White Blood Count 10.9 x10^3/uL (4.0-11.0) Red Blood Count 4.58 x10^6/uL (3.50-5.40) Hemoglobin 13.4 g/dL (12.0-15.5) Hematocrit 39.8 % (36.0-47.0) Mean Corpuscular Volume 87 fL (79-100) Mean Corpuscular Hemoglobin 29 pg (25-35) Mean Corpuscular Hemoglobin Concent 34 g/dL (31-37) Red Cell Distribution Width 14.7 % (11.5-14.5) H Platelet Count 330 x10^3/uL (140-400) Neutrophils (%) (Auto) 91 % (31-73) H Lymphocytes (%) (Auto) 8 % (24-48) L Monocytes (%) (Auto) 1 % (0-9) Eosinophils (%) (Auto) 0 % (0-3) Basophils (%) (Auto) 0 % (0-3) Neutrophils # (Auto) 9.9 x10^3uL (1.8-7.7) H Lymphocytes # (Auto) 0.8 x10^3/uL (1.0-4.8) L Monocytes # (Auto) 0.1 x10^3/uL (0.0-1.1) Eosinophils # (Auto) 0.0 x10^3/uL (0.0-0.7) Basophils # (Auto) 0.0 x10^3/uL (0.0-0.2) Prothrombin Time 9.4 SEC (9.4-11.4) Prothrombin Time INR 0.9 (0.9-1.1) PTT 23 SEC (23-33) D-Dimer (Mei) 0.86 mg/L (0.00-0.50) H Urine Collection Type Unknown Urine Color Yellow Urine Clarity Hazy Urine pH 8.0 Urine Specific [place] 1.020 Urine Protein Neg (NEG-TRACE) Urine Glucose (UA) Neg mg/dL (NEG) Urine Ketones (Stick) Neg mg/dL (NEG) Urine Blood Trace (NEG) Urine Nitrite Neg (NEG) Urine Bilirubin Neg (NEG) Urine Urobilinogen Dipstick 0.2 mg/dL (0.2 mg/dL) Urine Leukocyte Esterase Neg (NEG) Urine RBC 3-5 /HPF (0-2) Urine WBC 1-4 /HPF (0-4) Urine Squamous Epithelial Cells Many /LPF Urine Bacteria 0 /HPF (0-FEW) Urine Mucus Slight /LPF Sodium Level 138 mmol/L (136-145) Potassium Level 3.9 mmol/L (3.5-5.1) Chloride Level 103 mmol/L (98-107) Carbon Dioxide Level 27 mmol/L (21-32) Anion Gap 8 (6-14) Blood Urea Nitrogen 11 mg/dL (7-20) Creatinine 0.9 mg/dL (0.6-1.0) Estimated GFR (Cockcroft-Gault) 65.8 Glucose Level 189 mg/dL (70-99) H Calcium Level 9.3 mg/dL (8.5-10.1) Magnesium Level 1.8 mg/dL (1.8-2.4) Total Bilirubin 0.3 mg/dL (0.2-1.0) Direct Bilirubin 0.1 mg/dL (0.0-0.2) Aspartate Amino Transferase (AST) 14 U/L (15-37) L Alanine Aminotransferase (ALT) 18 U/L (14-59) Alkaline Phosphatase 99 U/L (46-116) Creatine Kinase 50 U/L (26-192) Creatine Kinase MB (Mass) 0.6 ng/mL (0.0-3.6) Creatine Kinase MB Relative Index 1.2 % (0-4) Troponin I Quantitative < 0.017 ng/mL (0-0.055) GD-Xfj-[id number]-Type Natriuretic Peptide 115 pg/mL (0-124) Total Protein 8.1 g/dL (6.4-8.2) Albumin 3.7 g/dL (3.4-5.0) Lipase 166 U/L (73-393) Urine Opiates Screen Neg (NEG) Urine Methadone Screen Neg (NEG) Urine Barbiturates Neg (NEG) Urine Phencyclidine Screen Neg (NEG) Urine Amphetamine/Methamphetamine Neg (NEG) Urine Benzodiazepines Screen Neg (NEG) Urine Cocaine Screen Neg (NEG) Urine Cannabinoids Screen Neg (NEG) Urine Ethyl Alcohol Neg (NEG) EKG EKG My interpretation of EKG shows a sinus rhythm at 90 bpm. There is some left axis. Nonspecific contour changes. No findings acute STEMI with contralateral changes.[] Radiology/Procedures Radiology/Procedures My interpretation chest x-ray shows bilateral atelectasis. No acute infiltrate. Does have a hiatal hernia. Has hardware in neck. I interpretation CT of chest shows no large central pulmonary embolism. Does have atelectasis. No focal findings of significant infiltrate. See formal report when available Course & Med Decision Making Course & Med Decision Making Pertinent Labs and Imaging studies reviewed. (See chart for details) Pt. relates breathing Tx.- was helpful, has lessens the urge to cough. Patient be admitted to Dr. Simon- for further eval and testing. [] Final Impression Final Impression 1. Chest Pain 2. Coughing[] 3. DM- 189 4. Elevated D-dimer 5. HTN 6. Bronchitis/ Reactive Airway Dragon Disclaimer Dragon Disclaimer This electronic medical record was generated, in whole or in part, using a voice recognition dictation system. SHAY SNEED MD Dec 26, 2017 20:35
[2017-12-26] MEDS ORDERED: IV RINGERS SOLUTION,LACTATED 1,000 ML IV SCH (21:11)
[2017-12-26] MEDS ORDERED: ASPIRIN 81 MG TAB.CHEW PO ONE (21:30)
[2017-12-26] MEDS ORDERED: methylPREDNISolone SOD SUCC PF 125 MG/2 ML VIAL. IV ONE (21:30)
[2017-12-26] MEDS ORDERED: IPRATRPIUM/ALBUTEROL 0.5/2.5MG 3 ML NEBU. ONE (21:40)
--- NOTE | 2017-12-26 21:52 | EKG ---
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
[2017-12-26 21:56] LABS: BASO % 0 % (0-3); EOS % 0 % (0-3); HEMATOCRIT 39.8 % (36.0-47.0); HEMOGLOBIN 13.4 g/dL (12.0-15.5); LYMPH # 0.8 x10^3/uL (1.0-4.8); LYMPH % 8 % (24-48); MEAN CORPUSCULAR HEMOGLOBIN 29 pg (25-35); MEAN CORPUSCULAR HGB CONC 34 g/dL (31-37); MEAN CORPUSCULAR VOLUME 87 fL (79-100); MONO # 0.1 x10^3/uL (0.0-1.1); MONO % 1 % (0-9); NEUT # 9.9 x10^3uL (1.8-7.7); NEUT % 91 % (31-73); PLATELET COUNT 330 x10^3/uL (140-400); RED BLOOD COUNT 4.58 x10^6/uL (3.50-5.40); RED CELL DISTRIBUTION WIDTH 14.7 % (11.5-14.5); WHITE BLOOD COUNT 10.9 x10^3/uL (4.0-11.0)
[2017-12-26] MEDS ORDERED: IPRATRPIUM/ALBUTEROL 0.5/2.5MG 3 ML NEBU. NEB ONE (22:00)
[2017-12-26 22:09] LABS: AMPHETAMINE/METHAMPHETAMINE NEG (NEG); BARBITURATES NEG (NEG); BENZODIAZEPINES NEG (NEG); CANNABINOIDS NEG (NEG); COCAINE NEG (NEG); METHADONE NEG (NEG); OPIATES NEG (NEG); PHENCYCLIDINE NEG (NEG)
[2017-12-26 22:20] LABS: BILIRUBIN,URINE NEG (NEG); CLARITY,URINE HAZY; COLOR,URINE YELLOW; GLUCOSE,URINE NEG (NEG); NITRITE,URINE NEG (NEG); UROBILINOGEN,URINE 0.2 mg/dL (0.2 mg/dL)
[2017-12-26 22:21] LABS: BACTERIA,URINE 0 /HPF (0-FEW); SQUAMOUS EPITHELIAL CELL,UR MANY /LPF
[2017-12-26 22:22] LABS: ALBUMIN 3.7 g/dL (3.4-5.0); CALCIUM 9.3 mg/dL (8.5-10.1); CREATININE 0.9 mg/dL (0.6-1.0); DIRECT BILIRUBIN 0.1 mg/dL (0.0-0.2); GFR 65.8; MAGNESIUM 1.8 mg/dL (1.8-2.4); POTASSIUM 3.9 mmol/L (3.5-5.1); TOTAL BILIRUBIN 0.3 mg/dL (0.2-1.0); TOTAL PROTEIN 8.1 g/dL (6.4-8.2)
[2017-12-26] MEDS ORDERED: ALBUTEROL SULFATE 8GM INHALER. INH ONE (23:45)
[2017-12-26] MEDS ORDERED: IOHEXOL 300 MG/ML 75 ML VIAL. IV ONE (23:45)
[2017-12-26] MEDS ORDERED: ENOXAPARIN ** NOTE DOSE ** SYRINGE SQ ONE (23:45)
[2017-12-26] MEDS ORDERED: CONTRAST GIVEN MC PRN (23:55)
--- NOTE | 2017-12-27 00:01 | RAD ---
PQRS Compliance Statement: One or more of the following individualized dose reduction techniques were utilized for this examination: 1. Automated exposure control 2. Adjustment of the mA and/or kV according to patient size 3. Use of iterative reconstruction technique CT angiography chest with contrast 12/26/2017 11:29 PM INDICATION: Cough, chest wall pain. Elevated d-dimer. COMPARISON: CT chest November 28, 2017 TECHNIQUE: Axial CT images of the chest were obtained after the intravenous administration of 75 cc Omnipaque 300. Coronal and sagittal reformats are provided. Maximum intensity projection images of the thoracic vasculature are provided. FINDINGS: The thyroid gland is normal in appearance. There are no pathologically enlarged axillary, mediastinal or hilar lymph nodes. The heart size is within normal limits. Trace pericardial fluid is present, likely physiologic. Thoracic aorta is borderline ectatic measuring 3.9 cm. There is adequate opacification of the pulmonary arterial system. There there are no filling defects within the pulmonary arterial system to suggest acute or chronic pulmonary embolus. There are no suspicious solid noncalcified pulmonary nodules. But basilar subsegmental atelectasis is noted. There are no pulmonary infiltrates. There are no pleural effusions. No pulmonary vascular congestion or pneumothorax. Visualized portions of the upper abdomen are within normal limits. No suspicious osseous lesions are visualized. Small hiatal hernia. IMPRESSION: There is no evidence for acute or chronic pulmonary embolism. There is bibasilar subsegmental atelectasis. Small hiatal hernia. Electronically signed by: Che Uribe MD (12/26/2017 11:58 PM) [facility]
[2017-12-27] MEDS: IV RINGERS SOLUTION,LACTATED 1,000 ML IV SCH ×2 (00:30→06:45)
[2017-12-27] MEDS ORDERED: ONDANSETRON PF 4 MG/2 ML VIAL. IV PRN (00:30)
[2017-12-27 02:42] VITALS: BP 126/84
[2017-12-27] MEDS ORDERED: NAPR-514 PO (04:38)
[2017-12-27 05:03] VITALS: BP 137/83
[2017-12-27] MEDS ORDERED: NAPROXEN 500 MG TABLET PO PRN (07:00)
[2017-12-27 07:56] LABS: BASO # 0.1 x10^3/uL (0.0-0.2); BASO % 1 % (0-3); EOS % 0 % (0-3); HEMATOCRIT 37.7 % (36.0-47.0); HEMOGLOBIN 12.5 g/dL (12.0-15.5); LYMPH # 1.2 x10^3/uL (1.0-4.8); LYMPH % 10 % (24-48); MEAN CORPUSCULAR HEMOGLOBIN 29 pg (25-35); MEAN CORPUSCULAR HGB CONC 33 g/dL (31-37); MEAN CORPUSCULAR VOLUME 87 fL (79-100); MONO # 0.1 x10^3/uL (0.0-1.1); MONO % 1 % (0-9); NEUT # 10.6 x10^3uL (1.8-7.7); NEUT % 89 % (31-73); PLATELET COUNT 319 x10^3/uL (140-400); RED BLOOD COUNT 4.32 x10^6/uL (3.50-5.40); RED CELL DISTRIBUTION WIDTH 14.9 % (11.5-14.5)
[2017-12-27 08:00] LABS: CALCIUM 9.4 mg/dL (8.5-10.1); CREATININE 0.8 mg/dL (0.6-1.0); GFR 75.3; POTASSIUM 3.7 mmol/L (3.5-5.1)
[2017-12-27] MEDS: IPRATRPIUM/ALBUTEROL 0.5/2.5MG 3 ML NEBU. NEB SCH ×4 (08:00→20:32)
--- NOTE | 2017-12-27 08:16 | RAD ---
Single view of the chest. 12/26/2017 9:33 PM Indication: Chest pain, congestion Comparison: Single view chest the 2017 Findings: Mild central vascular congestion are present. Heart size is normal. No pneumothorax. No pleural effusion is identified. No acute osseous abnormality is identified stable calcified granuloma, left lower lobe. Surgical changes to the cervical spine noted. IMPRESSION: Mild central vascular congestion.. Electronically signed by: Ezekiel Cannon MD (12/27/2017 8:13 AM) [id number]
[2017-12-27] MEDS: methylPREDNISolone SOD SUCC PF 40 MG/ML VIAL. IV SCH (08:35)
[2017-12-27] MEDS: LIDOCAINE (700MG/PATCH) PATCH. TD SCH (08:35)
[2017-12-27] MEDS: glyBURIDE 5 MG TABLET PO SCH (08:36)
[2017-12-27] MEDS: CITALOPRAM 20 MG TABLET. PO SCH (08:36)
[2017-12-27] MEDS: BENZONATATE 100 MG CAPSULE. PO SCH ×3 (08:36→20:48)
[2017-12-27] MEDS: ASPIRIN 81 MG TAB.CHEW PO SCH (08:36)
[2017-12-27] MEDS ORDERED: ENOXAPARIN ** NOTE DOSE ** SYRINGE SQ SCH (09:00)
[2017-12-27] MEDS ORDERED: LISINOPRIL 20 MG TABLET PO SCH (09:00)
[2017-12-27 10:22] VITALS: BP 164/73
[2017-12-27] MEDS ORDERED: LOSARTAN 50 MG TABLET. PO SCH (11:00)
[2017-12-27] MEDS: LOSARTAN 50 MG TABLET. PO SCH (11:43)
[2017-12-27] MEDS: PANTOPRAZOLE 40 MG TABLET. PO SCH (11:43)
--- NOTE | 2017-12-27 12:38 | HP ---
ADMIT DATE: 12/26/2017 HISTORY OF PRESENT ILLNESS: The patient is a 52-year-old female patient who came to the Emergency Room complaining of recurrent bouts of cough that has been going on for the last 3 months. She is also complaining of chest pain. She has been admitted here multiple times and eventually she was admitted to [facility] on 11/30/2017 and at that time, she underwent cardiac catheterization with the finding of 50% stenosis of I believe her left circumflex artery that the vice president consulting services decided to treat conservatively and maximized her medical treatment. She was evaluated in the Emergency Room, had extensive workup including lab work, which showed that her white cell count was normal. Her chest x-ray showed mild central vascular congestion; however, the CT angio of the chest showed that there is no evidence of acute or chronic pulmonary embolism. There is bibasilar subsegmental atelectasis, small hiatal hernia, but no suspicious solid noncalcified pulmonary nodules. No pneumothorax or pulmonary infiltrate. No pleural effusion, no pulmonary vascular congestion or pneumothorax. She was started on IV Solu-Medrol as well as Lovenox given that her D-dimer was high at 0.86 mg/dL. PAST MEDICAL HISTORY: Her past medical history is significant for hypertension, hyperlipidemia, bronchial asthma, and history of DVT. She was transferred at that time to [facility] and underwent cardiac catheterization, which showed only 50% stenosis of her I believe left circumflex artery and the Cardiology team did not recommend any stenting. PAST SURGICAL HISTORY: Past surgical history is significant for right total knee arthroplasty in 2016, back surgery in 2016, cholecystectomy, total abdominal hysterectomy and bilateral salpingo-oophorectomy as well as colonoscopy. ALLERGIES: She is ALLERGIC TO PENICILLIN, CODEINE, IBUPROFEN, and TRAMADOL. FAMILY HISTORY: She has one brother who has 4 stents and one sister who has 2 stents. Father at age of 49 because of myocardial infarction. Mother at the age of 74 because of breast cancer. She was twice, twice. She is currently single, lives with her boyfriend. SOCIAL HISTORY: She has 2 sons. She never smoked, does not drink alcohol or recreational drugs. She is on disability. REVIEW OF SYSTEMS: She has bilateral cataracts that will require surgery next year; however, she has no glaucoma or macular degeneration. Denied any earache, tinnitus or sensorineural deafness. Denied any nosebleeds, stuffy nose or postnasal drip. Denied any sore throat, sore tongue, toothache, hoarseness of voice or difficulty swallowing. She denied any nausea, vomiting, diarrhea or constipation. Denied any hematemesis, melena or hematochezia. Denied any dysuria, frequency, hematuria. Denied any chills, rigors, or fever. She did complain of cough with chest pain. Denied any orthopnea, paroxysmal nocturnal dyspnea. PHYSICAL EXAMINATION: GENERAL: On arrival to the Emergency Room, she apparently looked well and was clearly in no apparent respiratory distress. No pallor, jaundice, cyanosis, or thyromegaly. No jugular venous distension. No lower limb edema. VITAL SIGNS: Her heart rate was 92, blood pressure was 153/77, temperature was 98, respiratory rate was 20, and oxygen saturation was 96% on room air. HEENT: Examination of the head, eyes, ears, nose and throat showed normocephalic, atraumatic. NECK: Supple. HEART: Showed normal first and second heart sounds with no gallop, rub or murmur. CHEST: Clear to auscultation. No crepitation or rhonchi. ABDOMEN: Distended, soft, nontender. No guarding or rigidity. No organomegaly. All hernial orifices are intact and bowel sounds normal. NEUROLOGIC: She was awake, alert, responding appropriately. Her cranial nerves are intact. EXTREMITIES: She moves extremities without difficulty. She ambulates without assistance or assistive devices. LABORATORY AND DIAGNOSTIC DATA: Her lab work on admission showed a white cell count of 10,900, hemoglobin 13, hematocrit 39, MCV 87, and a platelet count of 330,000 with normal manual differential showed 91% polymorphs, 8% lymphocytes. Her chemistry showed a serum sodium 138, potassium 3.9, chloride 103, bicarbonate 27, anion gap of 8, BUN 11, creatinine 0.9, estimated GFR was 66 mL per minute. Her glucose was 189, calcium was 9.3, and magnesium was 1.8. Total bilirubin, AST, ALT, alkaline phosphatase was normal. Her total protein was 8.1, hemoglobin was 3.7, lipase 166. Her prothrombin time was 9.4, INR of 0.9, aPTT was 23, and D-dimer was 0.86 mg/dL. Urinalysis showed the urine was yellow, hazy with the pH of 8, specific gravity of 1.020. The urine was negative for protein, glucose, ketones, trace of blood, negative for nitrite, and leukocyte esterase was only 3-5 RBCs, 1-4 WBCs, and no bacteria, and urine toxicology screen was negative. Her chest x-ray showed that there is mild central vascular congestion is present. The heart size is normal. No pneumothorax, no pleural effusion is identified. No acute osseous abnormalities identified. Stable calcified granuloma, left lower lobe. Surgical changes of the cervical spine noted. Given that she has markedly elevated D-dimer, she underwent CT angio of the chest with contrast, which basically showed that there is no evidence of acute or chronic pulmonary embolism. There is bibasilar subsegmental atelectasis and small hiatal hernia. MEDICATIONS: She is currently on following medications: She is on albuterol sulfate 1 puff every 4 hours, atorvastatin calcium 40 mg daily, lisinopril 40 mg, she takes 80 mg daily, naproxen 500 mg twice a day, and escitalopram oxalate 10 mg daily. IMPRESSION: The differential diagnoses include cough due to bronchial asthma, Angiotensin-converting enzyme inhibitor-induced cough. She might have obviously gastroesophageal reflux disease. PLAN: Plan is to continue with her nebulized albuterol and Atrovent. She also has hypercalcemia, hyperglycemia. By definition, she is diabetic. Her blood sugar this morning was 202. The plan is to continue with IV steroids as well as bronchodilator. I will add Pulmicort and Singulair as a possible cause of her bronchial asthma. MARY MCDANIELS MD DR: REY/johnny JOB#: [id number] / [id number]
[2017-12-27 15:17] VITALS: BP 125/80
[2017-12-27 19:35] VITALS: BP 127/84
[2017-12-27] MEDS ORDERED: MONTELUKAST 10 MG TABLET. PO SCH (21:00)
[2017-12-27] MEDS ORDERED: ATORVASTATIN CALCIUM 20 MG TABLET PO SCH (21:00)
[2017-12-27] MEDS ORDERED: PATCH REMOVAL. MC SCH (21:00)
[2017-12-27 23:20] VITALS: BP 138/82
[2017-12-28 03:07] LABS: HEMOGLOBIN A1C 5.5 % (4.8-5.6)
--- NOTE | 2017-12-28 05:10 | PN ---
DATE: 12/27/2017 SUBJECTIVE: The patient is resting, slightly propped up in bed, in no apparent distress. She continued to have a dry hacking cough. She was extensively investigated yesterday. Her chest x-ray and CT angio of the chest revealed no pulmonary infiltrate, no pneumothorax or pleural effusion, no pulmonary emboli. No vascular congestion. She is known to have bronchial asthma and she was also on lisinopril for hypertension that she has been taking now for almost more than a year. PHYSICAL EXAMINATION: GENERAL: When I examined her this morning, she looked well and was clearly in no apparent respiratory distress. No pallor, jaundice, cyanosis, or thyromegaly. No jugular venous distension. No lower limb edema. VITAL SIGNS: Her heart rate was 103, blood pressure was 164/73, temperature was 98.4, respiratory rate was 18 and oxygen saturation was 94% on room air. HEAD, EYES, EARS, NOSE AND THROAT: Showed normocephalic, atraumatic. NECK: Supple. HEART: Showed normal first and second sounds. No gallop, rub or murmur. CHEST: Clear to auscultation. No crepitation or rhonchi. ABDOMEN: Distended, soft, nontender. No guarding or rigidity. No organomegaly. All hernial orifice intact. Bowel sounds normal. NEUROLOGIC: She is awake, alert, responding appropriately. Cranial nerves intact. She moves extremities without difficulty. She ambulates without assistance or assistive devices. Her intake and output were incompletely recorded. LABORATORY DATA: This morning showed a serum sodium 137, potassium 3.7, chloride 103, bicarbonate 25, anion gap of 9, BUN 9, creatinine 0.8, estimated GFR was 75 mL per minute. Her glucose was 103, calcium was 9.4. Her white cell count was 12,000, hemoglobin 12.5, hematocrit 37.7, MCV 87 and platelet count of 319,000 with a manual differential showed 89% polymorphs, 10% lymphocytes. ASSESSMENT: Chronic cough, which is mostly dry hacking associated at times with nausea and vomiting and chest pain, the cause of which is obviously her underlying bronchial asthma. It could be induced and mediated by LEONCIO inhibitors and/or gastroesophageal reflux disease. PLAN: To discontinue her lisinopril and start her on valsartan substitute and continue with nebulized albuterol and Atrovent as well as IV Solu-Medrol, Pulmicort, and Singulair. Continue to monitor her blood sugar as she clearly is diabetic given that her fasting blood sugar this morning was 202. Other medical problems obviously include, hypertension, hyperlipidemia. I will discontinue her therapeutic Lovenox and switch it to be given only for prophylaxis. MARY MCDANIELS MD DR: REY/johnny JOB#: [id number] / [id number]
[2017-12-28 05:22] VITALS: BP 119/79
[2017-12-28] MEDS: IPRATRPIUM/ALBUTEROL 0.5/2.5MG 3 ML NEBU. NEB SCH (05:33)
[2017-12-28] MEDS: CITALOPRAM 20 MG TABLET. PO SCH (08:58)
[2017-12-28] MEDS: glyBURIDE 5 MG TABLET PO SCH (08:58)
[2017-12-28] MEDS: ASPIRIN 81 MG TAB.CHEW PO SCH (08:58)
[2017-12-28] MEDS: BENZONATATE 100 MG CAPSULE. PO SCH (08:58)
[2017-12-28] MEDS: PANTOPRAZOLE 40 MG TABLET. PO SCH (08:58)
[2017-12-28] MEDS: methylPREDNISolone SOD SUCC PF 40 MG/ML VIAL. IV SCH (08:58)
[2017-12-28] MEDS: LOSARTAN 50 MG TABLET. PO SCH (08:58)
[2017-12-28] MEDS: LIDOCAINE (700MG/PATCH) PATCH. TD SCH (08:59)
[2017-12-28] MEDS ORDERED: ENOXAPARIN 40 MG/0.4 ML SYRINGE. SQ SCH (09:00)
[2017-12-28 10:12] VITALS: BP 115/77
--- NOTE | 2017-12-28 10:24 | RAD ---
Clinical Indication: Elevated d-dimer. Previous pulmonary embolism. Swelling Technique: Study is dated December 27, 2017. Granados scale, color flow and spectral waveform analysis was performed of both lower extremities with and without compression. Findings: There is normal compressibility of all visualized vein segments. No evidence of DVT is present on grayscale or color images. There is normal phasicity of waveform. There is normal augmentation . Impression: No evidence of deep vein thrombosis in either lower extremity. MTDD
[2017-12-28] MEDS ORDERED: LOSA100T6 PO (10:33)
[2017-12-28] MEDS ORDERED: METH4TAB2 PO (10:42)
[2017-12-28] MEDS ORDERED: RANI150T2 PO (10:42)
[2017-12-28] MEDS ORDERED: MONT10TA9 PO (10:42)
--- NOTE | 2017-12-28 23:35 | DS ---
DATE OF DISCHARGE: 12/28/2017 HOSPITAL COURSE: The patient is a 52-year-old female patient, who was admitted to the Emergency Room with a complaint of cough that has been going on for weeks. Cough is mostly dry, complained of chest pain. She was admitted for chest pain on multiple occasions. Eventually, she was admitted to [facility] on 11/30/2017. At that time, she underwent cardiac catheterization with the finding of 50% stenosis, I believe her left circumflex artery that the english language learner teacher decided to treat conservatively and maximize her medical treatment. She was evaluated in the Emergency Room; an extensive workup including lab work, which showed that her white cell count was normal. Chest x-ray showed mild central vascular congestion; however, the CT angio of the chest showed there is no evidence of acute or chronic pulmonary emboli. There is bibasilar subsegmental atelectasis, small hiatal hernia, but no suspicious, more solid noncalcified pulmonary nodules, no pneumothorax or pulmonary infiltrate. No pleural effusion, no pulmonary vascular congestion or pneumothorax. She was started on IV Solu-Medrol as well as Lovenox given that her D-dimer was high at 0.86 mg/dL. I did also start her on Singulair as well as added Protonix, and she did well. She claims that she is on disability and she was asking to get a note to be excused from jury duty. She was told that she already has disability and that she can show it to the court or after primary care physician for not to disqualify her or excuse her from the jury duty. PHYSICAL EXAMINATION: GENERAL: On examining her today, she looked well and was clearly in no apparent respiratory distress. No pallor, jaundice, cyanosis, or thyromegaly. No jugular venous distension. No limb edema. VITAL SIGNS: Her heart rate was 54, blood pressure was 116/77, temperature was 98.9, respiratory rate 20, and oxygen saturation was 96%. HEAD, EYES, EARS, NOSE AND THROAT: Normocephalic, atraumatic. NECK: Supple. HEART: Showed normal first and second heart sounds with no gallop, rub or murmur. CHEST: Clear to auscultation. No crepitation or rhonchi. ABDOMEN: Distended, soft, nontender. No guarding or rigidity. No organomegaly. Hernial orifice intact. Bowel sounds normal. NEUROLOGIC: She was awake, alert, responding appropriately. All cranial nerves intact. She moves extremities without difficulty. She ambulates without assistance or assistive devices. LABORATORY DATA: Her lab work showed a serum sodium 137, potassium 3.7, chloride 103, bicarbonate 25, anion gap of 9, BUN 9, creatinine 0.8, estimated GFR was 75 mL per minute. Her glucose was 126 mg/dL. DISCHARGE MEDICATIONS: The patient was discharged home to continue on following medications: Losartan potassium 100 mg once a day, a substitute for lisinopril. I discharged her also on a tapering course of steroids, Singulair 10 mg once a day and ranitidine 150 mg once a day. Should continue her albuterol sulfate for Proventil 1 puff every 4 hours, atorvastatin calcium or Lipitor 40 mg at bedtime, escitalopram oxalate 10 mg once a day and naproxen 500 mg twice a day as needed. FINAL DISCHARGE DIAGNOSES: Chronic cough that could be multifactorial. I did switch her to losartan from lisinopril. I started her on steroids. It could be manifestation of her bronchial asthma and also ranitidine for gastroesophageal reflux disease. Other medical problems include hyperlipidemia, hypertension, and coronary artery disease. MARY MCDANIELS MD DR: REY/johnny JOB#: [id number] / [id number]
== END 2017-12-28 11:35 | disposition home or self-care (01) ==
LOC: ER 20:33 → 1 SOUTH 23:45 → INTOOBSV 23:45
PROVIDERS: ADMIT Internal Medicine; ATTEND Internal Medicine
DX: J45.909 Unspecified asthma, uncomplicated (principal); K21.9 Gastro-esophageal reflux disease without esophagitis; E78.5 Hyperlipidemia, unspecified; I10 Essential (primary) hypertension; I25.10 Atherosclerotic heart disease of native coronary artery without angina pectoris; E78.00 Pure hypercholesterolemia, unspecified; Z86.718 Personal history of other venous thrombosis and embolism; Z90.710 Acquired absence of both cervix and uterus; Z80.3 Family history of malignant neoplasm of breast; Z82.49 Family history of ischemic heart disease and other diseases of the circulatory system; Z79.899 Other long term (current) drug therapy
CPT/HCPCS: 36415; 71046; 71275; 80048; 80076; 80307; 81001; 82553; 82947; 83036; 83690; 83735; 83880; 84443; 84484; 85025; 85379; 85610; 85730; 93005; 93970; 94640; 96361; 96372; 96374; 96376; 99285; G0238; G0378; J1650; J2920; J2930; J7120; J7613; J7620; Q9967; G0379; G0479

== ENCOUNTER → 2018-01-26 | Outpatient (CLI) | payer OTHER ==
[2017-12-28 10:12] VITALS: BP 115/77
[~2018-01-26] MED LIST changes: +LOSA100T6 PO; +METH4TAB2 PO; +MONT10TA9 PO; +NAPR-514 PO; +RANI150T2 PO
--- NOTE | 2018-01-27 08:38 | RAD ---
Chest, 2 views, 01/26/2018: HISTORY: Cough Comparison is made to the study from 12/26/2017. The heart is at the upper limits of normal in size. The pulmonary vascularity is normal. A calcified granuloma is present left base. No acute infiltrate is seen. There is no evidence of pleural fluid. A surgical plate and screws is evident in the lower cervical spine. There are mild scattered degenerative changes in the spine. IMPRESSION: No acute cardiopulmonary abnormality is detected with no significant change since 12/26/2017. Electronically signed by: Camilo Torres MD (01/27/2018 8:34 AM) [facility]
== END | disposition home or self-care (01) ==
LOC: DXRAD 17:28
PROVIDERS: ATTEND Family Medicine
DX: J84.10 Pulmonary fibrosis, unspecified (principal); K21.9 Gastro-esophageal reflux disease without esophagitis; I25.10 Atherosclerotic heart disease of native coronary artery without angina pectoris; E78.5 Hyperlipidemia, unspecified; E78.00 Pure hypercholesterolemia, unspecified; I10 Essential (primary) hypertension; Z90.710 Acquired absence of both cervix and uterus; Z88.0 Allergy status to penicillin; Z88.5 Allergy status to narcotic agent; Z88.6 Allergy status to analgesic agent; Z80.3 Family history of malignant neoplasm of breast; Z83.3 Family history of diabetes mellitus
CPT/HCPCS: 71046

== ENCOUNTER → 2018-06-15 | Outpatient (CLI) | payer OTHER ==
[2018-03-05 09:11] VITALS: BP 122/79
[~2018-06-15] MED LIST changes: +ALBU2.5V8 IH; -ALBU6.7H IH; +HYDR-2155 PO; +LIPITOR80 MG PO; +LOSA100T14 PO; -LOSA100T6 PO; +NITR0.4T22
--- NOTE | 2018-06-15 14:10 | RAD ---
Bone densitometry 06/15/2018 9:24 AM Indication: screening, baseline Comparison Study: None. Discussion: Bone Densitometry was performed with dual photon absorption of the lumbar spine and proximal right femur. Lumbar Spine: Bone average density is 1.471g/cm2 for L1-L3. T-Score is 2.5. Right femoral neck: Bone average density is 1.005g/cm2. T-Score is -0.2. . IMPRESSION: Normal bone mineral density Note: Definitions established by the World Health Organization: Normal: T-score is -1.0 or above. Osteopenia: T-score is between -1.0 and -2.5. Osteoporosis: T-score is -2.5 or below. Electronically signed by: Ezekiel Cannon MD (06/15/2018 2:06 PM) [facility]
== END | disposition home or self-care (01) ==
LOC: DXRAD 09:07
PROVIDERS: ATTEND Family Medicine
DX: Z13.820 Encounter for screening for osteoporosis (principal); M87.00 Idiopathic aseptic necrosis of unspecified bone
CPT/HCPCS: 77080

== ENCOUNTER 2018-07-24 15:21 | Emergency (ER) | payer OTHER ==
[~2018-07-24] VITALS: Ht 160 cm; Wt 93.0 kg
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
[2018-07-24] MEDS ORDERED: HYDR-3165 PO (16:37)
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
[2018-07-24 16:44] VITALS: BP 129/73
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
== END 2018-07-24 16:47 | disposition home or self-care (01) ==
LOC: ER 15:21
DX: M54.2 Cervicalgia (principal); M25.551 Pain in right hip; M25.552 Pain in left hip; R07.81 Pleurodynia; M54.5 Low back pain; M16.11 Unilateral primary osteoarthritis, right hip; G89.11 Acute pain due to trauma; F41.9 Anxiety disorder, unspecified; J45.909 Unspecified asthma, uncomplicated; I25.10 Atherosclerotic heart disease of native coronary artery without angina pectoris; K21.9 Gastro-esophageal reflux disease without esophagitis; E78.00 Pure hypercholesterolemia, unspecified; I10 Essential (primary) hypertension; Z87.440 Personal history of urinary (tract) infections; Z88.0 Allergy status to penicillin; Z88.6 Allergy status to analgesic agent; Z91.041 Radiographic dye allergy status; V43.52XA Car driver injured in collision with other type car in traffic accident, initial encounter; Y93.I9 Activity, other involving external motion; Y92.488 Other paved roadways as the place of occurrence of the external cause; Y99.8 Other external cause status
CPT/HCPCS: 71101; 72040; 72170; 99283

== ENCOUNTER 2018-08-26 17:34 | Emergency (ER) | payer MEDICARE, OTHER ==
[~2018-08-26] VITALS: Ht 160 cm; Wt 91.6 kg
[~2018-08-26 17:34] MED LIST changes: +HYDR-3165 PO
[2018-08-26] MEDS ORDERED: IV RINGERS SOLUTION,LACTATED 1,000 ML IV SCH (17:44)
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
[2018-08-26] MEDS ORDERED: ASPIRIN 81 MG TAB.CHEW PO ONE (17:45)
[2018-08-26] MEDS ORDERED: MORPHINE SULFATE 10 MG/ML SYRINGE. SQ ONE (18:00)
[2018-08-26] MEDS ORDERED: FAMOTIDINE 20 MG/2 ML VIAL IVP ONE (18:00)
[2018-08-26] MEDS ORDERED: ENOXAPARIN ** NOTE DOSE ** SYRINGE SQ ONE (18:00)
[2018-08-26] MEDS ORDERED: ONDANSETRON PF 4 MG/2 ML VIAL. IV ONE (18:00)
[2018-08-26] MEDS ORDERED: NITROGLYCERIN OINT 1 GM PACKET. TP ONE (18:00)
--- NOTE | 2018-08-26 18:04 | RAD ---
Two-view chest dated 08/26/2018. Comparison made to 07/24/2018. Clinical indication: Chest pain. FINDINGS: PA and lateral views obtained. Heart and mediastinal contours are stable. Evidence of prior lower cervical fusion. There are a few scattered calcified granuloma. Lungs are otherwise clear. No consolidation or pleural effusion. No pneumothorax. IMPRESSION:. No acute radiographic abnormality. Stable findings compared to 07/24/2018. Electronically signed by: Herb Merino MD (08/26/2018 6:01 PM) [facility] [email or web address]
[2018-08-26 18:08] LABS: BASO # 0.1 x10^3/uL (0.0-0.2); BASO % 1 % (0-3); EOS # 0.1 x10^3/uL (0.0-0.7); EOS % 1 % (0-3); HEMATOCRIT 41.4 % (36.0-47.0); HEMOGLOBIN 13.7 g/dL (12.0-15.5); LYMPH # 2.6 x10^3/uL (1.0-4.8); LYMPH % 24 % (24-48); MEAN CORPUSCULAR HEMOGLOBIN 28 pg (25-35); MEAN CORPUSCULAR HGB CONC 33 g/dL (31-37); MEAN CORPUSCULAR VOLUME 86 fL (79-100); MONO # 0.5 x10^3/uL (0.0-1.1); MONO % 5 % (0-9); NEUT # 7.5 x10^3uL (1.8-7.7); NEUT % 70 % (31-73); PLATELET COUNT 301 x10^3/uL (140-400); RED BLOOD COUNT 4.81 x10^6/uL (3.50-5.40); RED CELL DISTRIBUTION WIDTH 14.9 % (11.5-14.5); WHITE BLOOD COUNT 10.7 x10^3/uL (4.0-11.0)
[2018-08-26 18:31] LABS: ALBUMIN 3.8 g/dL (3.4-5.0); CALCIUM 9.2 mg/dL (8.5-10.1); CREATININE 0.9 mg/dL (0.6-1.0); DIRECT BILIRUBIN 0.1 mg/dL (0.0-0.2); GFR 65.5; MAGNESIUM 1.7 mg/dL (1.8-2.4); POTASSIUM 3.6 mmol/L (3.5-5.1); TOTAL BILIRUBIN 0.3 mg/dL (0.2-1.0); TOTAL PROTEIN 7.8 g/dL (6.4-8.2)
[2018-08-26 18:41] LABS: BACTERIA,URINE FEW /HPF (0-FEW); BILIRUBIN,URINE NEG (NEG); CLARITY,URINE CLOUDY; COLOR,URINE YELLOW; GLUCOSE,URINE NEG (NEG); NITRITE,URINE NEG (NEG); SQUAMOUS EPITHELIAL CELL,UR OCC /LPF; UROBILINOGEN,URINE 0.2 mg/dL (0.2 mg/dL)
[2018-08-26 18:47] LABS: BARBITURATES NEG (NEG); BENZODIAZEPINES NEG (NEG); CANNABINOIDS NEG (NEG); COCAINE NEG (NEG); METHADONE NEG (NEG); OPIATES POS (NEG); PHENCYCLIDINE NEG (NEG)
[2018-08-26 18:55] LABS: AMPHETAMINE/METHAMPHETAMINE NEG (NEG)
[2018-08-26] MEDS ORDERED: SMZ/TMP 800/160MG TABLET. PO ONE (20:45)
[2018-08-26 21:32] VITALS: BP 102/68
--- NOTE | 2018-08-26 21:54 | RAD ---
CT cervical spine without contrast 08/26/2018 CLINICAL INDICATION: Cervical neuropathy. COMPARISON: Cervical spine radiograph 07/24/2018 TECHNIQUE: Multiple CT images of the cervical spine were obtained without contrast. *One or more of the following individualized dose reduction techniques were utilized for this examination: 1. Automated exposure control. 2. Adjustment of the mA and/or kV according to patient size. 3. Use of iterative reconstruction technique. FINDINGS: There is straightening of the cervical spine. Grade 1 anterolisthesis C2 on C3 and C3 on C4. ACDF from C5 through C7 with solid intervertebral fusion. Moderate C3-C4 and C4-C5 disc degeneration with disc space narrowing, endplate sclerosis and marginal osteophyte formation and a mild degree at C2-C3. Moderate atlantodens osteoarthrosis with osteophytic spurring. No acute cervical spine fracture or traumatic malalignment. There is limited evaluation of the spinal canal due to degradation of images from overlying soft tissues. The paraspinal soft tissues are unremarkable. Segmental analysis: At C2-C3, left uncovertebral and facet hypertrophy resulting in mild left neural foraminal narrowing. At C3-C4, broad-based posterior disc osteophyte complex with bilateral uncovertebral and left facet hypertrophy resulting in moderate left and mild right neural foraminal narrowing and mild spinal canal narrowing. At C4-C5, broad-based posterior disc ossify complex, eccentric to the right with bilateral uncovertebral and right facet hypertrophy resulting in severe right neural foraminal narrowing and moderate spinal canal narrowing. At C5-C6, central disc osteophyte complex resulting in mild spinal canal narrowing without significant neural foraminal narrowing. At C6-C7, no significant neuroforaminal narrowing. Evaluation of the spinal canal is limited due to hardware artifact and no significant bony spinal canal compromise. At C7-T1, no significant neuroforaminal narrowing. No bony spinal canal compromise. IMPRESSION: 1. ACDF C5-C7. 2. Limited evaluation of the spinal canal due to degradation of images from overlying soft tissues and hardware artifact. 3. Cervical spondylosis resulting in moderate spinal canal narrowing at C4-C5. 4. Multilevel degenerative neural foraminal narrowing, greatest to severe degree, on the right at C4-C5. 5. Additional levels of degenerative neural foraminal narrowing, as detailed above. Electronically signed by: Javad Corrales MD (08/26/2018 9:52 PM) [facility]
--- NOTE | 2018-08-26 22:15 | EKG ---
[address] [address] Test Date: 2018-08-26 Test Time: 17:41:19 Pat Name: VELASQUEZ WRIGHT Department: Room: Gender: F [employer]former [employer]: : 1965 Requested By: SHAY SNEED Order Number: [id number] Reading MD: Eben Angulo MD Measurements Intervals [place] Rate: 82 P: 33 MI: 150 QRS: 4 QRSD: 90 T: 9 QT: 372 QTc: 438 Interpretive Statements SINUS RHYTHM Electronically Signed On 08-28-2018 14:35:24 CDT by Eben Angulo MD
--- NOTE | 2018-08-26 22:15 | EKG ---
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
[2018-08-26] MEDS ORDERED: ORPHENADRINE CITRATE 60 MG/2 ML VIAL. IV ONE (22:30)
[2018-08-26] MEDS ORDERED: KETOROLAC 30 MG/ML VIAL. IV ONE (22:30)
[2018-08-26] MEDS ORDERED: methylPREDNISolone ACETATE 40 MG/ML VIAL. IM ONE (22:30)
[2018-08-27 11:45] LABS: THYROID STIM HORMONE (TSH) 9.136 uIU/mL (0.358-3.740)
== END 2018-08-26 23:22 | disposition short-term general hospital (02) ==
LOC: ER 17:34
DX: G54.2 Cervical root disorders, not elsewhere classified (principal); R07.89 Other chest pain; E11.9 Type 2 diabetes mellitus without complications; N39.0 Urinary tract infection, site not specified; E78.5 Hyperlipidemia, unspecified; I10 Essential (primary) hypertension; I25.10 Atherosclerotic heart disease of native coronary artery without angina pectoris; F41.9 Anxiety disorder, unspecified; M19.90 Unspecified osteoarthritis, unspecified site; J45.909 Unspecified asthma, uncomplicated; F32.9 Major depressive disorder, single episode, unspecified; K21.9 Gastro-esophageal reflux disease without esophagitis; E78.00 Pure hypercholesterolemia, unspecified; Z87.440 Personal history of urinary (tract) infections; Z86.711 Personal history of pulmonary embolism; Z88.0 Allergy status to penicillin; Z88.5 Allergy status to narcotic agent; Z88.6 Allergy status to analgesic agent; Z91.041 Radiographic dye allergy status
CPT/HCPCS: 36415; 71046; 72125; 80048; 80061; 80076; 80307; 81001; 82550; 83690; 83735; 83880; 84443; 84484; 85025; 85379; 85610; 85730; 87086; 93005; 96372; 96374; 96375; 99285; J1030; J1650; J1885; J2060; J2270; J2405; J3490; J7120; 87186

== ENCOUNTER 2018-12-28 17:13 | Observation (INO) | payer OTHER, MEDICAID ==
[~2018-12-28] VITALS: Ht 160 cm; Wt 94.3 kg
[~2018-12-28 17:13] MED LIST changes: +MONT10TA80 PO; -MONT10TA9 PO
[2018-12-28] MEDS ORDERED: IOHEXOL 350 MG/ML 100 ML VIAL. IV ONE (17:30)
[2018-12-28] MEDS ORDERED: IV NORMAL SALINE 1,000ML 1,000 ML IV ONE (17:30)
[2018-12-28] MEDS ORDERED: ASPIRIN 325 MG TABLET PO ONE (17:30)
--- NOTE | 2018-12-28 17:36 | EKG ---
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
--- NOTE | 2018-12-28 17:46 | PHYS DOC ---
Past History Past Medical History: Anxiety, Arthritis, Asthma, CAD, Depression, GERD, High Cholesterol, Hypertension, UTI (DINORAH CHUA DO) Past Surgical History: Hysterectomy, Knee Replacement, Other (DINORAH CHUA DO) Smoking: Quit Greater Than 1 Year Alcohol Use: None Drug Use: None (DINORAH CHUA DO) Adult General Chief Complaint Chief Complaint: CHEST PAIN HPI HPI Ms. Goddard is a 53yo F w/ significant PMH for HLD and HTN presents w/ 4 days of sharp, 10/10, substernal chest pain that radiates down b/l UE, neck, and back. Experiences shortness of breath and diaphoresis. Numbness of b/l UE. Patient has experienced similar symptoms last July and was subsequently admitted; patient states stress test and other testing was normal w/ "some blockage but nothing to worry about now." History of PE 2 years ago. Follows up with cardiology with last appointment in September and an appointment already scheduled for this month. (DINORAH CHUA DO) HPI Pt. had several admits and cardiac evaluations. (SHAY SNEED MD) Review of Systems Review of Systems Constitutional: Denies fever or chills Eyes: Denies redness or eye pain HENT: Denies nasal congestion or sore throat Respiratory: Reports shortness of breath. Denies cough. Cardiovascular: Reports chest pain and palpitations GI: Denies abdominal pain, nausea, vomiting, diarrhea, or constipation : Denies dysuria or hematuria Musculoskeletal: Reports back pain. Denies joint pain. Integument: Denies rash or skin lesions Neurologic: Reports FREY, b/l UE numbness Complete systems were reviewed and found to be within normal limits, except as documented in this note. (DINORAH CHUA DO) Family History Family History Father had OK at 48yo. Son had 3 stents placed at 34yo. Brother had 6 stents placed. (DINORAH CHUA DO) Family History Sister had 2 stents. Mother Dm , OK. (SHAY SNEED MD) Current Medications Current Medications Current Medications Medications (Trade) Dose Ordered Sig/Ophelia Start Time Stop Time Status Last Admin Dose Admin Aspirin (Martha Aspirin) 325 mg 1X ONCE 12/28/18 17:30 12/28/18 17:31 Iohexol (Omnipaque 350 Mg/ml) 100 ml 1X ONCE 12/28/18 17:30 12/28/18 17:31 Sodium Chloride 1,000 ml @ 1,000 mls/hr 1X ONCE 12/28/18 17:30 12/28/18 18:29 (DINORAH CHUA DO) Allergies Allergies Allergies Coded Allergies Type Severity Reaction Last Updated Verified Penicillins Allergy Intermediate 11/28/17 Yes codeine Allergy Intermediate 11/28/17 Yes ibuprofen Allergy Intermediate takes NAPROXEN at home 03/03/18 Yes tramadol Allergy Intermediate 11/28/17 Yes I S O L A T I O N *CONTACT* Allergy Unknown 03/06/18 Yes (DINORAH CHUA DO) Physical Exam Physical Exam Constitutional: obese, moderate acute distress, non-toxic appearance HENT: Normocephalic, atraumatic, oropharynx moist Eyes: PERRL, EOMI, conjunctiva normal, no discharge Neck: Normal range of motion, no tenderness, supple, no cervical or supraclavi cular LAD Cardiovascular: Heart RRR w/o gallops, rubs, or murmurs. UE radial pulses intact 2/4 b/l. Lungs & Thorax: Bilateral breath sounds clear to auscultation, no wheezing Abdomen: Soft, no tenderness, non-distended Skin: Warm, dry, no erythema, no rash Extremities: No tenderness, ROM intact, mild edema of b/l LE, RRP of b/l LE Neurologic: Alert and oriented X 3, normal motor function, normal sensory function, no focal deficits noted Psychologic: Affect normal, judgement normal, mood normal (DINORAH CHUA DO) Current Patient Data Vital Signs Vital Signs Date Time Temp Pulse Resp B/P (MAP) Pulse Ox O2 Delivery O2 Flow Rate FiO2 12/28/18 17:22 98.1 100 18 154/106 (122) 93 Room Air (DINORAH CHUA DO) EKG EKG EKG obtained @ 17:31 and read @ 17:33. Sinus rhythm w/ no ST-elevations noted.[] (DINORAH CHUA DO) Radiology/Procedures Radiology/Procedures [] (DINORAH CHUA DO) Radiology/Procedures PATIENT: VELASQUEZ GODDARD ACCOUNT: [id number] : 1965 LOCATION: ER AGE: 53 SEX: F EXAM STATUS: REG ER ORD. PHYSICIAN: DINORAH CHUA DO REASON: chest pain PROCEDURE: CT ANGIOGRAPHY CHEST Exam: CT of chest with contrast INDICATION: Chest pain TECHNIQUE: Sequential axial images through the chest obtained following the administration of 80 mL of Isovue 300 IV contrast. Sagittal and coronal reformatted images were reconstructed from the axial data and reviewed. Maximum intensity projection images also reviewed. Comparisons: None FINDINGS: Visualized portions of the thyroid are unremarkable. No enlarged mediastinal lymph nodes. Heart size is normal. No pericardial effusion. Thoracic aorta is normal course and caliber. Pulmonary artery is not enlarged. No pulmonary mass identified within the main, lobar or segmental pulmonary arteries. Airways are patent. No consolidation or pneumothorax. Strandy opacities within the dependent portion of the lungs likely representing atelectasis. No suspicious lung nodules. No pleural effusion or thickening. Postsurgical changes cholecystectomy. Otherwise, visualized upper abdomen is unremarkable. No suspicious osseous lesions or acute fractures. IMPRESSION: 1. No pulmonary mass identified within the main, lobar or segmental pulmonary arteries. 2. No acute process identified within the chest. Exposure: One or more of the following in the visualized dose reduction techniques were utilized for this examination: 1. Automated exposure control 2. Adjustment of the MA and/or KV according to patient size 3. Use of iterative of reconstructive technique Electronically signed by: Nahid Diaz MD (12/28/2018 6:11 PM) [facility] DICTATED AND SIGNED BY: NAHID DIAZ MD DATE: 12/28/181810 CC: SANJUANITA ALFORD MD; DINORAH CHUA DO ~ (SHAY SNEED MD) Course & Med Decision Making Course & Med Decision Making Patient presented with chest pain with significant risk factors for CAD and PE. Similar symptoms last July and was admitted. Labs pending. CT Angio pending. HEART Score at least 5 (pending troponin level) Sign out to Dr. Hernandez for further evaluation and final disposition. Discussed current findings and plan with patient, who acknowledges understanding and agreement. (DINORAH CHUA DO) Course & Med Decision Making Heart score 5-4 Pt. still uncomfortable. 1. Chest Pain 2. HTN 3. DM 4. Tobacco Use 5. Elevated Lipids (SHAY SNEED MD) Dragon Disclaimer Dragon Disclaimer This electronic medical record was generated, in whole or in part, using a voice recognition dictation system. (DINORAH CHUA DO) Departure Departure: Impression: Primary Impression: Chest pain Referrals: SANJUANITA ALFORD MD (PCP) HEART Score for Chest Pain PTs The HEART Score for CP Pts HEART Score for Chest Pain: HEART Score for Chest Pain Response (Comments) Value History Highly Suspicious 2 ECG Normal 0 Age >45 - < 65 1 Risk Factors >3 Risk Factors or Hx CAD 2 Total 5 Risk Factors: Risk Factors: HTN, HLP, family history of CAD, obesity. Risk Scores: Score 0 - 3: 2.5% MACE over next 6 weeks - Discharge Home Score 4 - 6: 20.3% MACE over next 6 weeks - Admit for Clinical Observation Score 7 - 10: 72.7% MACE over next 6 weeks - Early Invasive Strategies (DINORAH CHUA DO) Discharge Summary Visit Information Final Diagnosis Problems Medical Problems: (1) Chest pain Status: Acute (SHAY SNEED MD) Brief Hospital Course Allergies Allergies Coded Allergies Type Severity Reaction Last Updated Verified Penicillins Allergy Intermediate 11/28/17 Yes codeine Allergy Intermediate 11/28/17 Yes ibuprofen Allergy Intermediate takes NAPROXEN at home 03/03/18 Yes tramadol Allergy Intermediate 11/28/17 Yes I S O L A T I O N *CONTACT* Allergy Unknown 03/06/18 Yes Vital Signs Vital Signs Date Time Temp Pulse Resp B/P (MAP) Pulse Ox O2 Delivery O2 Flow Rate FiO2 12/28/18 23:14 97.6 67 18 102/66 (78) 94 Room Air Lab Results Laboratory Tests Test 12/28/18 17:35 White Blood Count 7.9 x10^3/uL (4.0-11.0) Red Blood Count 4.70 x10^6/uL (3.50-5.40) Hemoglobin 13.4 g/dL (12.0-15.5) Hematocrit 40.6 % (36.0-47.0) Mean Corpuscular Volume 86 fL (79-100) Mean Corpuscular Hemoglobin 29 pg (25-35) Mean Corpuscular Hemoglobin Concent 33 g/dL (31-37) Red Cell Distribution Width 15.0 % (11.5-14.5) Platelet Count 326 x10^3/uL (140-400) Neutrophils (%) (Auto) 67 % (31-73) Lymphocytes (%) (Auto) 24 % (24-48) Monocytes (%) (Auto) 6 % (0-9) Eosinophils (%) (Auto) 2 % (0-3) Basophils (%) (Auto) 1 % (0-3) Neutrophils # (Auto) 5.3 x10^3uL (1.8-7.7) Lymphocytes # (Auto) 1.9 x10^3/uL (1.0-4.8) Monocytes # (Auto) 0.5 x10^3/uL (0.0-1.1) Eosinophils # (Auto) 0.2 x10^3/uL (0.0-0.7) Basophils # (Auto) 0.1 x10^3/uL (0.0-0.2) Prothrombin Time < 9.3 SEC (9.4-11.4) Prothromb Time International Ratio 0.9 (0.9-1.1) Activated Partial Thromboplast Time 23 SEC (23-33) Urine Collection Type Unknown Urine Color Yellow Urine Clarity Cloudy Urine pH 5.5 Urine Specific [place] 1.010 Urine Protein Neg (NEG-TRACE) Urine Glucose (UA) Neg mg/dL (NEG) Urine Ketones (Stick) Neg mg/dL (NEG) Urine Blood Trace (NEG) Urine Nitrite Neg (NEG) Urine Bilirubin Neg (NEG) Urine Urobilinogen Dipstick 0.2 mg/dL (0.2 mg/dL) Urine Leukocyte Esterase Neg (NEG) Urine RBC 0 /HPF (0-2) Urine WBC 0 /HPF (0-4) Urine Squamous Epithelial Cells Occ /LPF Urine Bacteria Few /HPF (0-FEW) Sodium Level 143 mmol/L (136-145) Potassium Level 3.7 mmol/L (3.5-5.1) Chloride Level 105 mmol/L (98-107) Carbon Dioxide Level 25 mmol/L (21-32) Anion Gap 13 (6-14) Blood Urea Nitrogen 13 mg/dL (7-20) Creatinine 0.9 mg/dL (0.6-1.0) Estimated GFR (Cockcroft-Gault) 65.5 BUN/Creatinine Ratio 14 (6-20) Glucose Level 144 mg/dL (70-99) Lactic Acid Level 1.9 mmol/L (0.4-2.0) Calcium Level 8.8 mg/dL (8.5-10.1) Magnesium Level 2.0 mg/dL (1.8-2.4) Total Bilirubin 0.2 mg/dL (0.2-1.0) Aspartate Amino Transf (AST/SGOT) 19 U/L (15-37) Alanine Aminotransferase (ALT/SGPT) 25 U/L (14-59) Alkaline Phosphatase 93 U/L (46-116) Creatine Kinase 64 U/L (26-192) Creatine Kinase MB (Mass) 0.6 ng/mL (0.0-3.6) Creatine Kinase MB Relative Index 0.9 % (0-4) QJ-Nmc-L-Type Natriuretic Peptide 168 pg/mL (0-124) Total Protein 7.6 g/dL (6.4-8.2) Albumin 3.6 g/dL (3.4-5.0) Albumin/Globulin Ratio 0.9 (1.0-1.7) Lipase 153 U/L (73-393) Brief Hospital Course Ms. Goddard is a 53 old female who presented with chest pain. Admitted Dr. Simon. (SHAY SNEED MD) Discharge Information Condition at Discharge: Improved, Stable Dischare Medications Current Medications Aspirin (Martha Aspirin) 325 mg 1X ONCE PO Last administered on 12/28/18at 18:14; Start 12/28/18 at 17:30; Stop 12/28/18 at 17:31; Status DC Sodium Chloride 1,000 ml @ 1,000 mls/hr 1X ONCE IV Last administered on 12/28/18at 18:15; Start 12/28/18 at 17:30; Stop 12/28/18 at 18:29; Status DC Iohexol (Omnipaque 350 Mg/ml) 100 ml 1X ONCE IV Last administered on 12/28/18at 17:46; Start 12/28/18 at 17:30; Stop 12/28/18 at 17:31; Status DC Active Scripts Active Montelukast Sodium Tablet (Montelukast Sodium) 10 Mg Tablet 10 Mg PO HS Reported NITROGLYCERIN SubLingual (Nitroglycerin) 0.4 Mg Tab.subl Proventil Hfa Inhaler (Albuterol Sulfate) 6.7 Gm Hfa.aer.ad 1 Puff IH PRN Q4HRS PRN (SHAY SNEED MD) Dragon Disclaimer This chart was dictated in whole or in part using Voice Recognition software in a busy, high-work load, and often noisy Emergency Department environment. It may contain unintended and wholly unrecognized errors or omissions. (SHAY SNEED MD) Problem Qualifiers Primary Impression: Chest pain Chest pain type: unspecified Qualified Codes: R07.9 - Chest pain, unspecified DINORAH CHUA DO Dec 28, 2018 17:46 SHAY SNEED MD Dec 28, 2018 19:11
[2018-12-28 18:03] LABS: BASO # 0.1 x10^3/uL (0.0-0.2); BASO % 1 % (0-3); EOS # 0.2 x10^3/uL (0.0-0.7); EOS % 2 % (0-3); HEMATOCRIT 40.6 % (36.0-47.0); HEMOGLOBIN 13.4 g/dL (12.0-15.5); LYMPH # 1.9 x10^3/uL (1.0-4.8); LYMPH % 24 % (24-48); MEAN CORPUSCULAR HEMOGLOBIN 29 pg (25-35); MEAN CORPUSCULAR HGB CONC 33 g/dL (31-37); MEAN CORPUSCULAR VOLUME 86 fL (79-100); MONO # 0.5 x10^3/uL (0.0-1.1); MONO % 6 % (0-9); NEUT # 5.3 x10^3uL (1.8-7.7); NEUT % 67 % (31-73); PLATELET COUNT 326 x10^3/uL (140-400); WHITE BLOOD COUNT 7.9 x10^3/uL (4.0-11.0)
--- NOTE | 2018-12-28 18:14 | RAD ---
Exam: CT of chest with contrast INDICATION: Chest pain TECHNIQUE: Sequential axial images through the chest obtained following the administration of 80 mL of Isovue 300 IV contrast. Sagittal and coronal reformatted images were reconstructed from the axial data and reviewed. Maximum intensity projection images also reviewed. Comparisons: None FINDINGS: Visualized portions of the thyroid are unremarkable. No enlarged mediastinal lymph nodes. Heart size is normal. No pericardial effusion. Thoracic aorta is normal course and caliber. Pulmonary artery is not enlarged. No pulmonary mass identified within the main, lobar or segmental pulmonary arteries. Airways are patent. No consolidation or pneumothorax. Strandy opacities within the dependent portion of the lungs likely representing atelectasis. No suspicious lung nodules. No pleural effusion or thickening. Postsurgical changes cholecystectomy. Otherwise, visualized upper abdomen is unremarkable. No suspicious osseous lesions or acute fractures. IMPRESSION: 1. No pulmonary mass identified within the main, lobar or segmental pulmonary arteries. 2. No acute process identified within the chest. Exposure: One or more of the following in the visualized dose reduction techniques were utilized for this examination: 1. Automated exposure control 2. Adjustment of the MA and/or KV according to patient size 3. Use of iterative of reconstructive technique Electronically signed by: Nahid Aquino MD (12/28/2018 6:11 PM) [facility]
[2018-12-28 18:28] LABS: ALBUMIN 3.6 g/dL (3.4-5.0); ALBUMIN/GLOBULIN RATIO 0.9 (1.0-1.7); GFR 65.5; POTASSIUM 3.7 mmol/L (3.5-5.1); TOTAL PROTEIN 7.6 g/dL (6.4-8.2)
[2018-12-28 18:53] LABS: CALCIUM 8.8 mg/dL (8.5-10.1); CREATININE 0.9 mg/dL (0.6-1.0); TOTAL BILIRUBIN 0.2 mg/dL (0.2-1.0)
[2018-12-28] MEDS ORDERED: ONDANSETRON PF 4 MG/2 ML VIAL. IV PRN (19:15)
[2018-12-28] MEDS ORDERED: ACETAMINOPHEN 325 MG TABLET PO PRN (19:15)
[2018-12-28 19:37] LABS: BACTERIA,URINE FEW /HPF (0-FEW); BILIRUBIN,URINE NEG (NEG); CLARITY,URINE CLOUDY; COLOR,URINE YELLOW; GLUCOSE,URINE NEG (NEG); NITRITE,URINE NEG (NEG); RBC,URINE 0 /HPF (0-2); SQUAMOUS EPITHELIAL CELL,UR OCC /LPF; UROBILINOGEN,URINE 0.2 mg/dL (0.2 mg/dL); WBC,URINE 0 /HPF (0-4)
[2018-12-28] MEDS: IPRATRPIUM/ALBUTEROL 0.5/2.5MG 3 ML NEBU. NEB SCH (19:40)
[2018-12-28] MEDS ORDERED: MORPHINE SULFATE 10 MG/ML SYRINGE. SQ PRN (20:15)
[2018-12-28] MEDS ORDERED: MORPHINE SULFATE 10 MG/ML SYRINGE. SQ ONE (20:15)
[2018-12-28] MEDS: NITROGLYCERIN OINT 1 GM PACKET. TP SCH (22:00)
[2018-12-28 23:14] VITALS: BP 102/66
[2018-12-29] MEDS: ENOXAPARIN ** NOTE DOSE ** SYRINGE SQ SCH ×2 (00:01→08:31)
[2018-12-29] MEDS ORDERED: ESCI10TA2 PO (00:27)
[2018-12-29] MEDS ORDERED: LISI-334 PO (00:27)
[2018-12-29] MEDS ORDERED: ICOS1CAP PO (00:27)
[2018-12-29] MEDS ORDERED: LEVO75TA5 PO (00:27)
[2018-12-29] MEDS ORDERED: ALBUTEROL SULFATE 2.5 MG/3 ML NEBU. NEB PRN (00:45)
[2018-12-29] MEDS: NITROGLYCERIN OINT 1 GM PACKET. TP SCH ×2 (06:00→14:00)
[2018-12-29] MEDS ORDERED: LEVOTHYROXINE 75 MCG TABLET PO SCH (06:00)
[2018-12-29 06:21] LABS: BASO % 1 % (0-3); EOS # 0.2 x10^3/uL (0.0-0.7); EOS % 2 % (0-3); HEMATOCRIT 37.3 % (36.0-47.0); HEMOGLOBIN 11.9 g/dL (12.0-15.5); LYMPH # 1.5 x10^3/uL (1.0-4.8); LYMPH % 23 % (24-48); MEAN CORPUSCULAR HEMOGLOBIN 28 pg (25-35); MEAN CORPUSCULAR HGB CONC 32 g/dL (31-37); MEAN CORPUSCULAR VOLUME 88 fL (79-100); MONO # 0.5 x10^3/uL (0.0-1.1); MONO % 8 % (0-9); NEUT # 4.3 x10^3uL (1.8-7.7); NEUT % 66 % (31-73); PLATELET COUNT 291 x10^3/uL (140-400); RED BLOOD COUNT 4.25 x10^6/uL (3.50-5.40); RED CELL DISTRIBUTION WIDTH 15.3 % (11.5-14.5); WHITE BLOOD COUNT 6.5 x10^3/uL (4.0-11.0)
[2018-12-29 06:27] LABS: CALCIUM 8.5 mg/dL (8.5-10.1); CREATININE 0.8 mg/dL (0.6-1.0); POTASSIUM 4.3 mmol/L (3.5-5.1)
[2018-12-29] MEDS: IPRATRPIUM/ALBUTEROL 0.5/2.5MG 3 ML NEBU. NEB SCH ×3 (06:28→15:11)
[2018-12-29 06:35] VITALS: BP 117/88
[2018-12-29] MEDS ORDERED: LISINOPRIL 20 MG TABLET PO SCH (09:00)
[2018-12-29] MEDS ORDERED: CITALOPRAM 20 MG TABLET. PO SCH (09:00)
[2018-12-29] MEDS ORDERED: ASPIRIN 81 MG TAB.CHEW PO SCH (09:00)
--- NOTE | 2018-12-29 12:16 | CARD ---
MR#: [id number] Date of Study: 12/29/2018 Ordering Physician: MIHAI GONZALEZ, Referring Physician: MARY MCDANIELS Tech: Jazmine Benjamin RDCS APPROVED REPORT EXAM: Two-dimensional and M-mode echocardiogram with Doppler and color Doppler. Other Information Quality : Good INDICATION Chest Pain 2D DIMENSIONS RVDd3.1 (2.9-3.5cm)Left Atrium(2D)3.8 (1.6-4.0cm) IVSd0.7 (0.7-1.1cm)Aortic Root(2D)3.3 (2.0-3.7cm) LVDd5.8 (3.9-5.9cm)LVOT Diameter2.2 (1.8-2.4cm) PWd0.7 (0.7-1.1cm)LVDs3.4 (2.5-4.0cm) FS (%) 30.0 %SV120.6 ml LVEF(%)60.0 (>50%) Aortic Valve AoV Peak Reilly.142.4cm/sAoV VTI29.5cm AO Peak GR.8.1mmHgAO Mean GR.5mmHg ANITHA (VTI)3.32cm2 Mitral Valve MV E Zqymtvsa576.4cm/sMV DECEL [id number] MV A Xleqrqgp84.9cm/sE/A Ratio1.2 Tricuspid Valve TR P. Wgxjmmes006se/sRAP [id number] TR Peak Gr.[id number] LEFT VENTRICLE The left ventricle is normal size. There is normal left ventricular wall thickness. The left ventricu lar systolic function is normal. The Ejection Fraction is 55-60%. There is normal LV segmental wall m otion. The left ventricular diastolic function and filling is normal for age. RIGHT VENTRICLE The right ventricle is normal size. The right ventricular systolic function is normal. ATRIA The left atrium size is normal. The right atrium size is normal. The interatrial septum is intact wit h no evidence for an atrial septal defect or patent foramen ovale as noted on 2-D or Doppler imaging. AORTIC VALVE The aortic valve is normal in structure and function. Doppler and Color Flow revealed no significant aortic regurgitation. There is no significant aortic valvular stenosis. MITRAL VALVE The mitral valve is normal in structure and function. There is no evidence of mitral valve prolapse. There is no mitral valve stenosis. Doppler and Color-flow revealed trace mitral regurgitation. TRICUSPID VALVE The tricuspid valve is normal in structure and function. Doppler and Color Flow revealed trace tricus pid regurgitation. There is mild pulmonary hypertension. The PA pressure was estimated at 33 mmHg. Th ere is no tricuspid valve stenosis. PULMONIC VALVE The pulmonary valve is normal in structure and function. Doppler and Color Flow revealed no pulmonic valvular regurgitation. There is no pulmonic valvular stenosis. GREAT VESSELS The aortic root is normal in size. The ascending aorta is normal in size. The IVC is normal in size a nd collapses >50% with inspiration. PERICARDIAL EFFUSION There is no evidence of significant pericardial effusion. Critical Notification Critical Value: No <Conclusion> The left ventricular systolic function is normal. The Ejection Fraction is 55-60%. There is normal LV segmental wall motion. Trace mitral regurgitation. Trace tricuspid regurgitation. There is mild pulmonary hypertension. The PA pressure was estimated at 33 mmHg. There is no evidence of significant pericardial effusion. Signed by : Gilberto Bacon, Electronically Approved : 12/29/2018 12:15:54
[2018-12-29 12:20] VITALS: BP 142/77
[2018-12-29 13:55] LABS: HDLC 32 mg/dL (40-60); TRIGLYCERIDES 586 mg/dL (0-150); VLDLC 117 mg/dL (0-40)
[2018-12-29 14:25] VITALS: BP 131/82
--- NOTE | 2018-12-29 16:32 | PDOC2 ---
CONSULT Date of Admission DATE: 12/29/18 TIME: 16:27 Reason for Consult: chest pain Referring Physician: Dr. Simon Chief Complaint chest pain Source: Chart review, Patient Problem List Problems Medical Problems: (1) Chest pain Status: Acute History of Present Illness The patient is a 53-year-old female who was admitted through the emergency room with reports of 3-4 days of chest discomfort with radiation to her back. She reports a history of a pulmonary embolism approximately 2 years ago and history of coronary artery disease. However she states that a recent stress test showed no ischemia. Overnight her cardiac enzymes have been normal of less than 0.017 on 2 occasions. Her EKG shows a sinus rhythm with no ischemic changes. Echocardiogram shows normal LV systolic function with ejection fraction of 55- 60% with trace mitral regurgitation and trace tricuspid regurgitation. Pulmonary artery pressure is minimally is mildly elevated at 33 mmHg. CTA of the chest today shows no evidence of pulmonary emboli and no acute changes. She is feeling better today. She continues to have mild pain. Cardiovascular: CAD, HTN, hyperipidemia Pulmonary: Asthma Musculoskeletal: Osteoarthritis Past Surgical History: Total knee replacement, Hysterectomy Family History: Hypertension Smoke: Quit ALCOHOL: none Current Medications Current Medications Aspirin (Martha Aspirin) 325 mg 1X ONCE PO Last administered on 12/28/18at 18:14; Start 12/28/18 at 17:30; Stop 12/28/18 at 17:31; Status DC Sodium Chloride 1,000 ml @ 1,000 mls/hr 1X ONCE IV Last administered on 12/28/18at 18:15; Start 12/28/18 at 17:30; Stop 12/28/18 at 18:29; Status DC Iohexol (Omnipaque 350 Mg/ml) 100 ml 1X ONCE IV Last administered on 12/28/18at 17:46; Start 12/28/18 at 17:30; Stop 12/28/18 at 17:31; Status DC Ondansetron HCl (Zofran) 4 mg PRN Q4HRS PRN IV NAUSEA/VOMITING Last administered on 12/29/18at 08:35; Start 12/28/18 at 19:15; Stop 12/29/18 at 19:14 Acetaminophen (Tylenol) 650 mg PRN Q4HRS PRN PO FEVER; Start 12/28/18 at 19:15; Stop 12/29/18 at 19:14 Albuterol/ Ipratropium (Duoneb) 3 ml RTQID NEB Last administered on 12/29/18at 09:14; Start 12/28/18 at 20:00; Stop 12/29/18 at 19:59 Aspirin (Children'S Aspirin) 81 mg DAILY PO Last administered on 12/29/18at 08:28; Start 12/29/18 at 09:00 Nitroglycerin (Nitro-Bid Oint) 0.5 inch [id number] TP ; Start 12/28/18 at 22:00 Enoxaparin Sodium (Lovenox 100mg Syringe) 94 mg BID SQ Last administered on 12/29/18at 08:31; Start 12/28/18 at 21:00 Morphine Sulfate (Morphine 10mg Syringe) 10 mg 1X ONCE SQ Last administered on 12/28/18at 20:10; Start 12/28/18 at 20:15; Stop 12/28/18 at 20:16; Status DC Morphine Sulfate (Morphine 10mg Syringe) 10 mg QIDPRN PRN SQ SEVERE PAIN 7-10; Start 12/28/18 at 20:15 Albuterol Sulfate (Ventolin) 2.5 mg PRN Q4HRS PRN NEB ASTHMA; Start 12/29/18 at 00:45 Levothyroxine Sodium (Synthroid) 75 mcg DAILY06 PO Last administered on 12/29/18at 06:05; Start 12/29/18 at 06:00 Lisinopril (Prinivil) 20 mg DAILY PO Last administered on 12/29/18at 08:28; Start 12/29/18 at 09:00 Montelukast Sodium (Singulair) 10 mg HS PO ; Start 12/29/18 at 21:00 Citalopram Hydrobromide (CeleXA) 20 mg DAILY PO Last administered on 12/29/18at 08:28; Start 12/29/18 at 09:00 Non-Formulary Medication (Icosapent Ethyl (Vascepa)) 4 g HS PO ; Start 12/29/18 at 21:00; Status UNV Active Scripts Active Montelukast Sodium Tablet (Montelukast Sodium) 10 Mg Tablet 10 Mg PO HS Reported Escitalopram Oxalate 10 Mg Tablet 10 Mg PO DAILY Vascepa (Icosapent Ethyl) 1 Gm Capsule 4 G PO HS Levothyroxine Sodium 75 Mcg Tablet 75 Mcg PO DAILY06 Lisinopril 20 Mg Tablet 20 Mg PO DAILY NITROGLYCERIN SubLingual (Nitroglycerin) 0.4 Mg Tab.subl Proventil Hfa Inhaler (Albuterol Sulfate) 6.7 Gm Hfa.aer.ad 1 Puff IH PRN Q4HRS PRN Allergies: Coded Allergies: Penicillins (Verified Allergy, Intermediate, 11/28/17) codeine (Verified Allergy, Intermediate, 11/28/17) ibuprofen (Verified Allergy, Intermediate, takes NAPROXEN at home, 03/03/18) tramadol (Verified Allergy, Intermediate, 11/28/17) I S O L A T I O N *CONTACT* (Verified Allergy, Unknown, 03/06/18) +MRSA nares 03/03/18 Respiratory: YES: SOB with excertion Cardiovascular: yes: Chest Pain VITALS Vital Signs Date Time Temp Pulse Resp B/P (MAP) Pulse Ox O2 Delivery O2 Flow Rate FiO2 12/29/18 12:20 98.1 58 18 142/77 (98) 94 Room Air Labs Laboratory Tests Test 12/28/18 17:35 12/28/18 19:00 12/29/18 00:15 12/29/18 06:00 White Blood Count 7.9 x10^3/uL (4.0-11.0) 6.5 x10^3/uL (4.0-11.0) Red Blood Count 4.70 x10^6/uL (3.50-5.40) 4.25 x10^6/uL (3.50-5.40) Hemoglobin 13.4 g/dL (12.0-15.5) 11.9 g/dL (12.0-15.5) Hematocrit 40.6 % (36.0-47.0) 37.3 % (36.0-47.0) Mean Corpuscular Volume 86 fL (79-100) 88 fL (79-100) Mean Corpuscular Hemoglobin 29 pg (25-35) 28 pg (25-35) Mean Corpuscular Hemoglobin Concent 33 g/dL (31-37) 32 g/dL (31-37) Red Cell Distribution Width 15.0 % (11.5-14.5) 15.3 % (11.5-14.5) Platelet Count 326 x10^3/uL (140-400) 291 x10^3/uL (140-400) Neutrophils (%) (Auto) 67 % (31-73) 66 % (31-73) Lymphocytes (%) (Auto) 24 % (24-48) 23 % (24-48) Monocytes (%) (Auto) 6 % (0-9) 8 % (0-9) Eosinophils (%) (Auto) 2 % (0-3) 2 % (0-3) Basophils (%) (Auto) 1 % (0-3) 1 % (0-3) Neutrophils # (Auto) 5.3 x10^3uL (1.8-7.7) 4.3 x10^3uL (1.8-7.7) Lymphocytes # (Auto) 1.9 x10^3/uL (1.0-4.8) 1.5 x10^3/uL (1.0-4.8) Monocytes # (Auto) 0.5 x10^3/uL (0.0-1.1) 0.5 x10^3/uL (0.0-1.1) Eosinophils # (Auto) 0.2 x10^3/uL (0.0-0.7) 0.2 x10^3/uL (0.0-0.7) Basophils # (Auto) 0.1 x10^3/uL (0.0-0.2) 0.0 x10^3/uL (0.0-0.2) Prothrombin Time < 9.3 SEC (9.4-11.4) Prothromb Time International Ratio 0.9 (0.9-1.1) Activated Partial Thromboplast Time 23 SEC (23-33) Urine Collection Type Unknown Urine Color Yellow Urine Clarity Cloudy Urine pH 5.5 Urine Specific [place] 1.010 Urine Protein Neg (NEG-TRACE) Urine Glucose (UA) Neg mg/dL (NEG) Urine Ketones (Stick) Neg mg/dL (NEG) Urine Blood Trace (NEG) Urine Nitrite Neg (NEG) Urine Bilirubin Neg (NEG) Urine Urobilinogen Dipstick 0.2 mg/dL (0.2 mg/dL) Urine Leukocyte Esterase Neg (NEG) Urine RBC 0 /HPF (0-2) Urine WBC 0 /HPF (0-4) Urine Squamous Epithelial Cells Occ /LPF Urine Bacteria Few /HPF (0-FEW) Sodium Level 143 mmol/L (136-145) 141 mmol/L (136-145) Potassium Level 3.7 mmol/L (3.5-5.1) 4.3 mmol/L (3.5-5.1) Chloride Level 105 mmol/L (98-107) 105 mmol/L (98-107) Carbon Dioxide Level 25 mmol/L (21-32) 27 mmol/L (21-32) Anion Gap 13 (6-14) 9 (6-14) Blood Urea Nitrogen 13 mg/dL (7-20) 12 mg/dL (7-20) Creatinine 0.9 mg/dL (0.6-1.0) 0.8 mg/dL (0.6-1.0) Estimated GFR (Cockcroft-Gault) 65.5 75.0 BUN/Creatinine Ratio 14 (6-20) Glucose Level 144 mg/dL (70-99) 108 mg/dL (70-99) Lactic Acid Level 1.9 mmol/L (0.4-2.0) Calcium Level 8.8 mg/dL (8.5-10.1) 8.5 mg/dL (8.5-10.1) Magnesium Level 2.0 mg/dL (1.8-2.4) Total Bilirubin 0.2 mg/dL (0.2-1.0) Aspartate Amino Transf (AST/SGOT) 19 U/L (15-37) Alanine Aminotransferase (ALT/SGPT) 25 U/L (14-59) Alkaline Phosphatase 93 U/L (46-116) Creatine Kinase 64 U/L (26-192) Creatine Kinase MB (Mass) 0.6 ng/mL (0.0-3.6) Creatine Kinase MB Relative Index 0.9 % (0-4) QZ-Edw-R-Type Natriuretic Peptide 168 pg/mL (0-124) Total Protein 7.6 g/dL (6.4-8.2) Albumin 3.6 g/dL (3.4-5.0) Albumin/Globulin Ratio 0.9 (1.0-1.7) Lipase 153 U/L (73-393) Triglycerides Level 586 mg/dL (0-150) Cholesterol Level 243 mg/dL (0-200) LDL Cholesterol, Calculated mg/dL (0-100) VLDL Cholesterol, Calculated 117 mg/dL (0-40) Non-HDL Cholesterol Calculated 211 mg/dL (0-129) HDL Cholesterol 32 mg/dL (40-60) Cholesterol/HDL Ratio 7.0 Nasal Screen MRSA (PCR) Positive (Negative) Troponin I Quantitative < 0.017 ng/mL (0-0.055) Test 12/29/18 12:24 Troponin I Quantitative < 0.017 ng/mL (0-0.055) Images CTA of the chest shows no evidence of pulmonary embolism and no acute changes. Echocardiogram shows normal LV systolic function with trace mitral regurgitation and trace tricuspid regurgitation. Pulmonary artery pressures 33 mmHg. Assessment/Plan 1. Chest pain. Patient's pain has improved. EKG shows no ischemia. Cardiac enzymes have been normal �2. Echocardiogram shows normal LV systolic function. CTA of the chest shows no PE. The patient's pain has improved but not resolved. We'll continue medical treatment. She may be discharged from a cardiology viewpoint with a follow up scheduled for next week. 2. Hypertension. Better control. Continue present medications. 3. Hyperlipidemia with elevated triglycerides. Continue present medications with cardiac follow-up next week. 4. Diabetes mellitus. Continue present treatments. Thank you for allowing us to participate in the care of your patient. MIHAI GONZALEZ MD Dec 29, 2018 16:32
[2018-12-29] MEDS ORDERED: ICOSAPENT ETHYL 4 GM PO SCH (21:00)
[2018-12-29] MEDS ORDERED: MONTELUKAST 10 MG TABLET. PO SCH (21:00)
--- NOTE | 2018-12-30 01:01 | SSS ---
ADMIT DATE: 12/29/2018 HISTORY OF PRESENT ILLNESS: The patient is a 53-year-old female patient who came to the Emergency Room complaining of substernal chest pain that radiates down both bilateral upper extremity, neck and back. She experiences shortness of breath and diaphoresis, numbness in both upper extremities. The patient has experienced similar symptoms last July, was subsequently admitted. The patient states her stress test and other testings were normal. ____, but nothing to worry about now. She has a history of pulmonary emboli 3 years ago, followed up with Cardiology with last appointment in September. Appointment already scheduled for this month. The patient was evaluated in the Emergency Room, has had an EKG done, which showed that she was in sinus rhythm with no ST segment elevation or depression. Her CT scan of the chest with contrast showed no pleural effusion or thickening. The visualized portion of the thyroid unremarkable. No enlarged mediastinal lymph nodes. The heart size is normal. No pericardial effusion. Thoracic aorta is normal in course and caliber. The pulmonary artery is not enlarged. No pulmonary masses identified within the main lobar and segmental pulmonary arteries. She has no pleural effusion or thickening. Postsurgical changes of cholecystectomy, otherwise, the visualized upper abdomen is unremarkable. No suspicious osseous lesion or acute fracture. She has had 3 sets of cardiac enzymes that were negative. Her fasting lipid profile showed that her triglycerides were high at 586. Her total cholesterol was 143, although LDL cholesterol could not be calculated, VLDL was high at 117, HDL cholesterol 52 and the ratio was 7. Her serum lipase was 153. She has had an echocardiogram done, which basically showed that the left ventricular systolic function is normal, ejection fraction is 55-60%. There is normal left ventricular segmental wall motion. She has trace mitral regurgitation, trace tricuspid regurgitation with mild pulmonary hypertension, pulmonary artery pressure was estimated at 33 mmHg. There is no evidence of significant pericardial effusion. She was seen in consultation by the Cardiology team and was basically recommended that the patient can be discharged and to follow with the cardiac team in their clinic next week. PAST MEDICAL HISTORY: Significant for hypertension, hyperlipidemia, history of DVT and pulmonary embolism as well as has coronary artery disease, status post cardiac catheterization. PAST SURGICAL HISTORY: Significant for right total knee arthroplasty, back surgery, cholecystectomy, total abdominal hysterectomy, bilateral salpingo-oophorectomy as well as colonoscopy. ALLERGIES: She is allergic to PENICILLIN, CODEINE, IBUPROFEN and TRAMADOL. FAMILY HISTORY: She has one brother who has 4 stents and one sister who has 2 stents. Father at age of 49 because of myocardial infarction. Mother at age of 74 because of breast cancer. SOCIAL HISTORY: She is twice, currently single, lives with her boyfriend. She has 2 sons. She has never smoked, does not drink alcohol or use recreational drugs. She is currently on disability. REVIEW OF SYSTEMS: As per history of present illness. MEDICATIONS: She is currently on following medications: She is on albuterol sulfate 1 puff every 4 hours, Vascepa 4 grams p.o. at bedtime. She uses nitroglycerin 0.4 mg sublingually every 5 minutes x 3, lisinopril 20 mg once a day, escitalopram oxalate 10 mg daily and montelukast 10 mg p.o. at bedtime, levothyroxine sodium 75 mcg p.o. daily. PHYSICAL EXAMINATION: GENERAL: On arrival to the Emergency Room, her heart rate was 49, blood pressure was 117/88, temperature was 98.1, respiratory rate was 16 and oxygen saturation was 97% on room air. HEAD, EYES, EARS, NOSE AND THROAT: Showed normocephalic, atraumatic. NECK: Supple. HEART: Showed normal first and second heart sounds with no gallop, rub or murmur. CHEST: Clear to auscultation. No crepitation or rhonchi. ABDOMEN: Distended, soft, nontender. No guarding or rigidity. No organomegaly. All hernial orifices intact. Bowel sounds normal. NEUROLOGIC: She is awake, alert, responding appropriately. All cranial nerves intact. EXTREMITIES: She moves extremities without difficulty. LABORATORY DATA: Showed white cell count 7900, hemoglobin 13.4, hematocrit 40, MCV 86, and platelet count 326,000. Her serum sodium was 141, potassium 4.3, chloride 105, bicarbonate 27, anion gap of 9, BUN 12, creatinine 0.8, estimated GFR was 75 mL per minute. Her glucose was 109, calcium was 8.5, lactic acid was 1.9. She had 2 sets of cardiac enzymes that were negative. Her prothrombin time was 9.3, INR 0.9, aPTT was 23. Urinalysis was unremarkable and nasal screen for MRSA PCR was positive. Her CT angio of the chest showed no pulmonary mass identified within the main lobar and segmental pulmonary arteries, no acute process identified within the chest. She was discharged home to continue on her albuterol sulfate 1 puff every 4 hours, escitalopram oxalate 10 mg p.o. daily, Vascepa 4 grams at bedtime, levothyroxine 75 mcg daily, montelukast 10 mg at bedtime, nitroglycerin 0.4 mg sublingual every 5 minutes x 3. FINAL DISCHARGE DIAGNOSES: Chest pain, atypical, myocardial infarction was ruled out, hypertension, hyperlipidemia, bronchial asthma, coronary artery disease and hypothyroidism. MARY MCDANIELS MD DR: REY/johnny JOB#: [id number] / [id number]
== END 2018-12-29 17:50 | disposition home or self-care (01) ==
LOC: ER 17:13 → INTOOBSV 19:00 → 1 SOUTH 19:00
PROVIDERS: ADMIT Internal Medicine; ATTEND Internal Medicine
DX: R07.2 Precordial pain (principal); I10 Essential (primary) hypertension; F41.9 Anxiety disorder, unspecified; J45.909 Unspecified asthma, uncomplicated; I25.10 Atherosclerotic heart disease of native coronary artery without angina pectoris; N39.0 Urinary tract infection, site not specified; F32.9 Major depressive disorder, single episode, unspecified; E78.5 Hyperlipidemia, unspecified; I63.9 Cerebral infarction, unspecified; K21.9 Gastro-esophageal reflux disease without esophagitis; E11.9 Type 2 diabetes mellitus without complications; M19.90 Unspecified osteoarthritis, unspecified site; E78.00 Pure hypercholesterolemia, unspecified; Z90.710 Acquired absence of both cervix and uterus; Z87.891 Personal history of nicotine dependence; Z82.49 Family history of ischemic heart disease and other diseases of the circulatory system; Z80.3 Family history of malignant neoplasm of breast; Z83.3 Family history of diabetes mellitus; Z86.711 Personal history of pulmonary embolism; Z86.718 Personal history of other venous thrombosis and embolism; Z96.651 Presence of right artificial knee joint
CPT/HCPCS: 36415; 71275; 80048; 80053; 80061; 81001; 82553; 83605; 83690; 83735; 83880; 84484; 85025; 85610; 85730; 87641; 93005; 93306; 94640; 96372; 96374; 99284; G0378; J1650; J2270; J2405; J7620; Q9967; 96360; G0379; 99285-25; J7030

== ENCOUNTER 2019-01-02 19:46 | Emergency (ER) | payer MEDICARE, MEDICAID, OTHER ==
[~2019-01-02] VITALS: Ht 160 cm; Wt 97.6 kg
[~2019-01-02 19:46] MED LIST changes: +ESCI10TA2 PO; +ICOS1CAP PO; +LEVO75TA5 PO; +LISI-334 PO
--- NOTE | 2019-01-02 19:55 | PHYS DOC ---
Past History Past Medical History: COPD, High Cholesterol, Hypertension, Other Additional Past Medical Histor: pulmonary embolism Past Surgical History: Other Additional Past Surgical Histo: right knee, neck surgery Smoking: Quit Greater Than 1 Year Alcohol Use: None Drug Use: None Adult General Chief Complaint Chief Complaint: CHEST PAIN HPI HPI Patient is a 53-year-old female presents with sharp left-sided chest pain that's been going on all day. Became worse this evening. No worsening with exertion. No respirophasic component. No increased shortness of breath. No cough. No fever. Nothing seems to make this better or worse. No nausea or vomiting. No diaphoresis. Pain is moderate to severe in intensity and sharp in nature.[] Review of Systems Review of Systems Constitutional: Denies fever or chills [] Eyes: Denies change in visual acuity, redness, or eye pain [] HENT: Denies nasal congestion or sore throat [] Respiratory: Denies cough or shortness of breath [] Cardiovascular: No additional information not addressed in HPI [] GI: Denies abdominal pain, nausea, vomiting, bloody stools or diarrhea [] : Denies dysuria or hematuria [] Musculoskeletal: Denies back pain or joint pain [] Integument: Denies rash or skin lesions [] Neurologic: Denies headache, focal weakness or sensory changes [] Endocrine: Denies polyuria or polydipsia [] All other systems were reviewed and found to be within normal limits, except as documented in this note. Allergies Allergies Allergies Coded Allergies Type Severity Reaction Last Updated Verified Penicillins Allergy Intermediate 11/28/17 Yes codeine Allergy Intermediate 11/28/17 Yes ibuprofen Allergy Intermediate takes NAPROXEN at home 03/03/18 Yes tramadol Allergy Intermediate 11/28/17 Yes I S O L A T I O N *CONTACT* Allergy Unknown 03/06/18 Yes Physical Exam Physical Exam Constitutional: Well developed, well nourished, no acute distress, non-toxic tonny earance. [] HENT: Normocephalic, atraumatic, bilateral external ears normal, oropharynx moist, no oral exudates, nose normal. [] Eyes: PERRLA, EOMI, conjunctiva normal, no discharge. [] Neck: Normal range of motion, no tenderness, supple, no stridor. [] Cardiovascular:Heart rate regular rhythm, no murmur [] Lungs & Thorax: Bilateral breath sounds clear to auscultation [] Abdomen: Bowel sounds normal, soft, no tenderness, no masses, no pulsatile masses. [] Skin: Warm, dry, no erythema, no rash. [] Back: No tenderness, no CVA tenderness. [] Extremities: No tenderness, no cyanosis, no clubbing, ROM intact, no edema. [] Neurologic: Alert and oriented X 3, normal motor function, normal sensory function, no focal deficits noted. [] Psychologic: Affect normal, judgement normal, mood normal. [] EKG EKG EKG shows a sinus rhythm at 71 bpm, left axis at -6, QTC 428 ms, no ST elev ations. Interpreted by me at 1953.[] Radiology/Procedures Radiology/Procedures Chest x-ray showed no infiltrate, no effusion, no pneumothorax PROCEDURE: CT ANGIOGRAPHY CHEST PQRS Compliance Statement: One or more of the following individualized dose reduction techniques were utilized for this examination: 1. Automated exposure control 2. Adjustment of the mA and/or kV according to patient size 3. Use of iterative reconstruction technique CT angiography chest with contrast 01/02/2019 8:59 PM INDICATION: Sharp left-sided chest pain with elevated d-dimer. COMPARISON: CT chest December 28, 2018 TECHNIQUE: Axial CT images of the chest were obtained after the intravenous administration of nonionic contrast. Coronal and sagittal reformats are provided. Maximum intensity projection images of the thoracic vasculature are provided. FINDINGS: The thyroid gland is normal in appearance. There are no pathologically enlarged axillary, mediastinal or hilar lymph nodes. The heart size is within normal limits. No significant pericardial effusion. Thoracic aorta is normal in course and caliber. There is adequate opacification of the pulmonary arterial system. There there are no filling defects within the pulmonary arterial system to suggest acute or chronic pulmonary embolus. Minimal gas is identified within the pulmonary arteries, likely iatrogenic. There are no suspicious solid noncalcified pulmonary nodules. 6 mm calcified granulomas identified in the left lower lobe. There are no pulmonary infiltrates. There are no pleural effusions. No pulmonary vascular congestion or pneumothorax. Visualized portions of the upper abdomen are within normal limits. Gallbladder is surgically absent. No suspicious osseous lesions are visualized. IMPRESSION: There is no evidence for acute or chronic pulmonary embolism. [] Course & Med Decision Making Course & Med Decision Making Pertinent Labs and Imaging studies reviewed. (See chart for details) ED course: Patient arrived, was placed in bed, and tolerated exam well. She had been given aspirin from EMS. After noting the elevated d-dimer she was transported to and from radiology with any complications. Findings were discussed with her. Patient voiced understanding. All questions were answered. She was discharged in improved condition. Medical decision making: This does not appear to be acute coronary syndrome since symptoms do not Worse with exertion and she had a workup performed within the past week to include echocardiography that was essentially normal. Also had cardiac enzymes at that time that were negative as well. There is no evidence of pulmonary embolism. No evidence of pneumonia, pneumothorax, esophageal rupture, nor dissecting thoracic aneurysm.[] Dragon Disclaimer Dragon Disclaimer This electronic medical record was generated, in whole or in part, using a voice recognition dictation system. Departure Departure: Impression: Primary Impression: Atypical chest pain Disposition: 01 HOME, SELF-CARE Condition: STABLE Referrals: SANJUANITA ALFORD MD (PCP) Follow-up in 2 days Patient Instructions: Chest Pain (Nonspecific) Additional Instructions: Follow-up with your regular doctor in 2 days. Continue your home pain medicines as described. Return to the ER if worsening pain, difficulty breathing, or any other concerns. ANUEL LEWIS DO Jan 02, 2019 19:55
[2019-01-02 20:17] LABS: BASO % 0 % (0-3); EOS # 0.2 x10^3/uL (0.0-0.7); EOS % 2 % (0-3); HEMOGLOBIN 13.4 g/dL (12.0-15.5); LYMPH # 2.1 x10^3/uL (1.0-4.8); LYMPH % 24 % (24-48); MEAN CORPUSCULAR HEMOGLOBIN 28 pg (25-35); MEAN CORPUSCULAR HGB CONC 33 g/dL (31-37); MEAN CORPUSCULAR VOLUME 87 fL (79-100); MONO # 0.6 x10^3/uL (0.0-1.1); MONO % 6 % (0-9); NEUT % 68 % (31-73); PLATELET COUNT 331 x10^3/uL (140-400); RED BLOOD COUNT 4.74 x10^6/uL (3.50-5.40); RED CELL DISTRIBUTION WIDTH 15.2 % (11.5-14.5); WHITE BLOOD COUNT 8.8 x10^3/uL (4.0-11.0)
[2019-01-02 20:38] LABS: ALBUMIN 4.1 g/dL (3.4-5.0); ALBUMIN/GLOBULIN RATIO 1.1 (1.0-1.7); CALCIUM 9.5 mg/dL (8.5-10.1); CREATININE 0.8 mg/dL (0.6-1.0); MAGNESIUM 1.9 mg/dL (1.8-2.4); TOTAL BILIRUBIN 0.3 mg/dL (0.2-1.0); TOTAL PROTEIN 7.8 g/dL (6.4-8.2)
[2019-01-02] MEDS ORDERED: ACETAMINOPHEN 325 MG TABLET PO ONE (20:45)
[2019-01-02] MEDS ORDERED: MORPHINE SULFATE 4 MG/ML DISP.SYRIN. SQ ONE (21:30)
[2019-01-02] MEDS ORDERED: IOHEXOL 350 MG/ML 100 ML VIAL. IV ONE (21:30)
[2019-01-02 22:05] LABS: BARBITURATES NEG (NEG); BENZODIAZEPINES NEG (NEG); CANNABINOIDS NEG (NEG); COCAINE NEG (NEG); METHADONE NEG (NEG); OPIATES NEG (NEG); PHENCYCLIDINE NEG (NEG)
[2019-01-02 22:07] LABS: AMPHETAMINE/METHAMPHETAMINE NEG (NEG)
[2019-01-02 22:11] LABS: BILIRUBIN,URINE NEG (NEG); CLARITY,URINE HAZY; COLOR,URINE YELLOW; GLUCOSE,URINE NEG (NEG)
[2019-01-02 22:12] LABS: BACTERIA,URINE FEW /HPF (0-FEW); NITRITE,URINE NEG (NEG); RBC,URINE OCC /HPF (0-2); SQUAMOUS EPITHELIAL CELL,UR MOD /LPF; UROBILINOGEN,URINE 0.2 mg/dL (0.2 mg/dL); WBC,URINE OCC /HPF (0-4)
--- NOTE | 2019-01-02 22:22 | RAD ---
PQRS Compliance Statement: One or more of the following individualized dose reduction techniques were utilized for this examination: 1. Automated exposure control 2. Adjustment of the mA and/or kV according to patient size 3. Use of iterative reconstruction technique CT angiography chest with contrast 01/02/2019 8:59 PM INDICATION: Sharp left-sided chest pain with elevated d-dimer. COMPARISON: CT chest December 28, 2018 TECHNIQUE: Axial CT images of the chest were obtained after the intravenous administration of nonionic contrast. Coronal and sagittal reformats are provided. Maximum intensity projection images of the thoracic vasculature are provided. FINDINGS: The thyroid gland is normal in appearance. There are no pathologically enlarged axillary, mediastinal or hilar lymph nodes. The heart size is within normal limits. No significant pericardial effusion. Thoracic aorta is normal in course and caliber. There is adequate opacification of the pulmonary arterial system. There there are no filling defects within the pulmonary arterial system to suggest acute or chronic pulmonary embolus. Minimal gas is identified within the pulmonary arteries, likely iatrogenic. There are no suspicious solid noncalcified pulmonary nodules. 6 mm calcified granulomas identified in the left lower lobe. There are no pulmonary infiltrates. There are no pleural effusions. No pulmonary vascular congestion or pneumothorax. Visualized portions of the upper abdomen are within normal limits. Gallbladder is surgically absent. No suspicious osseous lesions are visualized. IMPRESSION: There is no evidence for acute or chronic pulmonary embolism. Electronically signed by: Che Uribe MD (01/02/2019 10:19 PM) [facility]
[2019-01-02 22:27] VITALS: BP 167/86
--- NOTE | 2019-01-03 06:21 | EKG ---
[address] [address] Test Date: 2019-01-02 Test Time: 19:52:53 Pat Name: VELASQUEZ WRIGHT Department: Room: Gender: F Blanket Maker: JAMARCUS : 1965 Requested By: ANUEL LEWIS Order Number: [id number] Reading MD: Measurements Intervals [place] Rate: 71 P: 48 WI: 158 QRS: -6 QRSD: 90 T: 13 QT: 394 QTc: 428 Interpretive Statements SINUS RHYTHM LEFTWARD AXIS OTHERWISE NORMAL ECG RI6.01 No previous ECG available for comparison
--- NOTE | 2019-01-03 08:01 | RAD ---
Examination: PORTABLE CHEST 1V History: Chest pain Comparison/Correlation: 08/26/2018 two-view chest x-ray exam, 12/28/2018 CT chest PE protocol Findings: Portable frontal view chest was obtained. Postoperative cervical spine fusion noted. Heart size and pulmonary vasculature are normal. No infiltrate or pleural effusion. Left lung base calcified granulomas present. Impression: No active disease. Electronically signed by: J Luis Bee MD (01/03/2019 7:58 AM) [facility]
== END 2019-01-02 22:25 | disposition home or self-care (01) ==
LOC: ER 19:46
DX: R07.89 Other chest pain (principal); J44.9 Chronic obstructive pulmonary disease, unspecified; E78.00 Pure hypercholesterolemia, unspecified; I10 Essential (primary) hypertension; Z87.891 Personal history of nicotine dependence; Z86.711 Personal history of pulmonary embolism; Z88.0 Allergy status to penicillin; Z88.5 Allergy status to narcotic agent; Z88.6 Allergy status to analgesic agent; Z91.040 Latex allergy status
CPT/HCPCS: 36415; 71045; 71275; 80053; 80307; 81001; 83690; 83735; 83880; 84484; 85025; 85379; 85610; 85730; 93005; 96372; 99285; J2270; Q9967

== ENCOUNTER 2019-01-22 15:19 | Emergency (ER) | payer OTHER, MEDICAID ==
[~2019-01-22] VITALS: Ht 160 cm; Wt 98.2 kg
[2019-01-22] MEDS ORDERED: ASPIRIN 81 MG TAB.CHEW PO ONE (15:30)
[2019-01-22] MEDS ORDERED: IV NORMAL SALINE 1,000ML 1,000 ML IV SCH (15:30)
--- NOTE | 2019-01-22 15:36 | PHYS DOC ---
Past History Past Medical History: COPD, High Cholesterol, Hypertension, Other Additional Past Medical Histor: pulmonary embolism Past Surgical History: Cholecystectomy, Hysterectomy, Other Additional Past Surgical Histo: right knee, neck surgery Smoking: Quit Greater Than 1 Year Alcohol Use: None Drug Use: None Adult General Chief Complaint Chief Complaint: SHORTNESS OF BREATH [facility] HPI Patient is a 53-year-old female who presents with complaint of left-sided chest pain that started this morning at about 8 AM. She also indicates that she is feeling short of breath and also has a headache. She rates her pain to be a 10 out of 10. She denies any aggravating or alleviating factors. Patient states that chest pain started spontaneously. She states that she is concerned because she has a history of PE about 2 years ago.[] Review of Systems Review of Systems Constitutional: Denies fever or chills [] Respiratory: Positive shortness of breath [] Cardiovascular: No additional information not addressed in HPI [] GI: Denies abdominal pain, nausea, vomiting or diarrhea [] Neurologic: Complains of headache without focal weakness or sensory changes [] All other systems were reviewed and found to be within normal limits, except as documented in this note. Allergies Allergies Allergies Coded Allergies Type Severity Reaction Last Updated Verified Penicillins Allergy Intermediate 11/28/17 Yes codeine Allergy Intermediate 11/28/17 Yes ibuprofen Allergy Intermediate takes NAPROXEN at home 03/03/18 Yes tramadol Allergy Intermediate 11/28/17 Yes I S O L A T I O N *CONTACT* Allergy Unknown 03/06/18 Yes Physical Exam Physical Exam Constitutional: Well developed, well nourished, no acute distress, non-toxic appearance. [] HENT: Normocephalic, atraumatic, bilateral external ears normal, oropharynx moist, no oral exudates, nose normal. [] Eyes: PERRLA, EOMI, conjunctiva normal, no discharge. [] Neck: Normal range of motion, no tenderness, supple, no stridor. [] Cardiovascular:Heart rate regular rhythm [] Lungs & Thorax: Bilateral breath sounds clear to auscultation [] Abdomen: Bowel sounds normal, soft. [] Skin: Warm, dry, no erythema, no rash. [] Extremities: No tenderness, no cyanosis, no clubbing, ROM intact. [] Neurologic: Alert and oriented X 3. [] Current Patient Data Vital Signs Vital Signs Date Time Temp Pulse Resp B/P (MAP) Pulse Ox O2 Delivery O2 Flow Rate FiO2 01/22/19 15:28 98.1 64 18 97 Room Air EKG EKG [] Radiology/Procedures Radiology/Procedures [] Impressions: PROCEDURE: CHEST AP ONLY EXAM: Chest, single view. HISTORY: Chest pain. COMPARISON: CT dated 01/02/2019. FINDINGS: A frontal view of the chest is obtained. There is no infiltrate, pleural effusion or pneumothorax. The heart is normal in size. There are calcified granulomas. There is cervical spinal fusion instrumentation. IMPRESSION: No acute pulmonary finding. Electronically signed by: Eliza Howell MD (01/22/2019 3:57 PM) [facility] DICTATED AND SIGNED BY: ELIZA HOWELL MD DATE: 01/22/19 1557 Course & Med Decision Making Course & Med Decision Making Pertinent Labs and Imaging studies reviewed. (See chart for details) [] Dragon Disclaimer Dragon Disclaimer This electronic medical record was generated, in whole or in part, using a voice recognition dictation system. Departure Departure: Impression: Primary Impression: Atypical chest pain Additional Impression: Headache Disposition: HOME, SELF-CARE Condition: STABLE Referrals: SANJUANITA ALFORD MD (PCP) Patient Instructions: Chest Pain (Nonspecific) Problem Qualifiers Additional Impression: Headache Headache type: unspecified Headache chronicity pattern: episodic headache Intractability: not intractable Qualified Codes: R51 - Headache MICHAEL TSANG Jr. DO Jan 22, 2019 15:36
[2019-01-22 15:49] LABS: BASO # 0.1 x10^3/uL (0.0-0.2); BASO % 1 % (0-3); EOS # 0.2 x10^3/uL (0.0-0.7); EOS % 2 % (0-3); HEMATOCRIT 39.5 % (36.0-47.0); HEMOGLOBIN 13.2 g/dL (12.0-15.5); LYMPH # 1.7 x10^3/uL (1.0-4.8); LYMPH % 23 % (24-48); MEAN CORPUSCULAR HEMOGLOBIN 29 pg (25-35); MEAN CORPUSCULAR HGB CONC 33 g/dL (31-37); MEAN CORPUSCULAR VOLUME 86 fL (79-100); MONO # 0.5 x10^3/uL (0.0-1.1); MONO % 7 % (0-9); NEUT # 4.9 x10^3uL (1.8-7.7); NEUT % 67 % (31-73); PLATELET COUNT 300 x10^3/uL (140-400); WHITE BLOOD COUNT 7.3 x10^3/uL (4.0-11.0)
--- NOTE | 2019-01-22 16:00 | RAD ---
EXAM: Chest, single view. HISTORY: Chest pain. COMPARISON: CT dated 01/02/2019. FINDINGS: A frontal view of the chest is obtained. There is no infiltrate, pleural effusion or pneumothorax. The heart is normal in size. There are calcified granulomas. There is cervical spinal fusion instrumentation. IMPRESSION: No acute pulmonary finding. Electronically signed by: Eliza Howell MD (01/22/2019 3:57 PM) [place] [id number]
[2019-01-22 16:09] LABS: ALBUMIN 3.6 g/dL (3.4-5.0); CALCIUM 9.1 mg/dL (8.5-10.1); CREATININE 0.7 mg/dL (0.6-1.0); GFR 87.5; POTASSIUM 3.8 mmol/L (3.5-5.1); TOTAL BILIRUBIN 0.3 mg/dL (0.2-1.0); TOTAL PROTEIN 7.2 g/dL (6.4-8.2)
[2019-01-22 16:51] LABS: BARBITURATES NEG (NEG); BENZODIAZEPINES NEG (NEG); CANNABINOIDS NEG (NEG); COCAINE NEG (NEG); METHADONE NEG (NEG); OPIATES NEG (NEG); PHENCYCLIDINE NEG (NEG)
[2019-01-22 16:59] VITALS: BP 143/85
[2019-01-22 16:59] LABS: BACTERIA,URINE FEW /HPF (0-FEW); BILIRUBIN,URINE NEG (NEG); CLARITY,URINE CLEAR; COLOR,URINE YELLOW; GLUCOSE,URINE NEG (NEG); NITRITE,URINE NEG (NEG); RBC,URINE 0 /HPF (0-2); SQUAMOUS EPITHELIAL CELL,UR OCC /LPF; UROBILINOGEN,URINE 0.2 mg/dL (0.2 mg/dL); WBC,URINE OCC /HPF (0-4)
[2019-01-22 17:01] LABS: AMPHETAMINE/METHAMPHETAMINE NEG (NEG)
--- NOTE | 2019-01-23 06:35 | EKG ---
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
== END 2019-01-22 17:02 | disposition home or self-care (01) ==
LOC: ER 15:19
DX: R07.89 Other chest pain (principal); R51 Headache; R06.02 Shortness of breath; J44.9 Chronic obstructive pulmonary disease, unspecified; E78.00 Pure hypercholesterolemia, unspecified; I10 Essential (primary) hypertension; Z86.711 Personal history of pulmonary embolism; Z87.891 Personal history of nicotine dependence; Z88.0 Allergy status to penicillin; Z88.5 Allergy status to narcotic agent; Z91.041 Radiographic dye allergy status
CPT/HCPCS: 36415; 71045; 80053; 80307; 81001; 83880; 84484; 85025; 85379; 93005; 99285-25; J7030

== ENCOUNTER 2019-06-17 18:12 | Observation (INO) | payer OTHER, MEDICAID ==
[~2019-06-17] VITALS: Ht 160 cm; Wt 93.9 kg
[~2019-06-17 18:12] MED LIST changes: -NITR0.4T22; +NITR0.4T22 SL
[2019-06-17] MEDS ORDERED: IV RINGERS SOLUTION,LACTATED 1,000 ML IV SCH (18:22)
--- NOTE | 2019-06-17 18:22 | PHYS DOC ---
Past History Past Medical History: COPD, Fibromyalgia, High Cholesterol, Hypertension, Other Additional Past Medical Histor: pulmonary embolism Past Surgical History: Cholecystectomy, Hysterectomy, Other Additional Past Surgical Histo: right knee, neck surgery Smoking: Quit Greater Than 1 Year Alcohol Use: None Drug Use: None Adult General Chief Complaint Chief Complaint: chest pain here in the center my chest and some radiation into my neck and left shoulder.... I had a rapid heart rate....... It's been constant since 2 PM this afternoon..." HPI HPI Patient is a 53 year old female who presents with above hx and complaints of chest pain, dyspnea, tachycardia and fatigue. She rates her pain as 10 out of 10. Nothing makes the pain better. Patient did take her nitroglycerin at 15:30 and 16:30 PM Patient does have history of prior pulmonary embolism with similar chest pain. Patient does have a history of COPD, hypertension, angina,fibromyalgia and dysrhythmia. Patient does have a follow-up with cardiology [facility]. Reportedly cardiac catheter in 2016 showed mild stenosis of the coronary arteries. No recent travel. No specific ill contacts. No history of changes in meds. She states she no longer smokes. Pt. follows with Dr. Woo. Review of Systems Review of Systems Constitutional: Denies fever or chills [] Eyes: Denies change in visual acuity, redness, or eye pain [] HENT: Denies nasal congestion or sore throat [] Respiratory: Denies cough or shortness of breath [] Cardiovascular: No additional information not addressed in HPI [] GI: Denies abdominal pain, nausea, vomiting, bloody stools or diarrhea [] : Denies dysuria or hematuria [] Musculoskeletal: Denies back pain or joint pain [] Integument: Denies rash or skin lesions [] Neurologic: Denies headache, focal weakness or sensory changes [] Endocrine: Denies polyuria or polydipsia [] All other systems were reviewed and found to be within normal limits, except as documented in this note. Family History Family History There is a family history of cardiac issues in their 60s Current Medications Current Medications See nursing for home meds Allergies Allergies Allergies Coded Allergies Type Severity Reaction Last Updated Verified Penicillins Allergy Intermediate 11/28/17 Yes codeine Allergy Intermediate 11/28/17 Yes ibuprofen Allergy Intermediate takes NAPROXEN at home 03/03/18 Yes tramadol Allergy Intermediate 11/28/17 Yes I S O L A T I O N *CONTACT* Allergy Unknown 03/06/18 Yes Physical Exam Physical Exam Constitutional: Moderate acute distress, non-toxic appearance. [] HENT: Normocephalic, atraumatic, bilateral external ears normal, oropharynx moist, no oral exudates, nose normal. [] Eyes: PERRLA, EOMI, conjunctiva normal, no discharge. [] Neck: Normal range of motion, no tenderness, supple, no stridor. [] Old surgery scar Cardiovascular: Tachycardia Heart rate regular rhythm, no murmur []PMI to the left Lungs & Thorax: Bilateral breath sounds equal at apexes with scattered wheezing on auscultation [] Abdomen: Bowel sounds normal, soft, no tenderness, no masses, no pulsatile masses. [] Old surgery scars. Obese Skin: Warm, dry, no erythema, no rash. [] Back: No tenderness, no CVA tenderness. [] Extremities: No tenderness, no cyanosis, no clubbing, ROM intact, no edema. [] Rt. knee scar. No obvious cording. Neurologic: Alert and oriented X 3, normal motor function, normal sensory function, no focal deficits noted. [] Psychologic: Affect anxious, judgement normal, mood normal. [] EKG EKG My interpretation EKG shows a sinus rhythm at 94 bpm. Both voltage in limb leads. No findings of acute STEMI with contralateral changes.[] Radiology/Procedures Radiology/Procedures [][place] [address] IMAGING REPORT Signed PATIENT: VELASQUEZ WRIGHT ACCOUNT: [id number] : 1965 LOCATION: ER AGE: 53 SEX: F EXAM STATUS: REG ER ORD. PHYSICIAN: SHAY SNEED MD REASON: cp, elev. d-dimer., hx prior pe, LT ARM TINGLING, OMNI 350, 100ml PROCEDURE: CT ANGIOGRAPHY CHEST Exam: CT of chest with contrast INDICATION: Chest pain TECHNIQUE: Sequential axial images through the chest obtained following the administration of 100 mL of Omni 350 IV contrast. Sagittal and coronal reformatted images were reconstructed from the axial data and reviewed. 3-D reformatted images were reconstructed from the axial data and reviewed. Comparisons: 01/02/2019 FINDINGS: Visualized portions of the thyroid are unremarkable. No enlarged mediastinal lymph nodes. Heart size is normal. No pericardial effusion. Thoracic aorta has a normal course and caliber. Pulmonary artery is not enlarged. No pulmonary embolus identified within the main, lobar or segmental pulmonary arteries. Airways are patent. No consolidation or pneumothorax. No pleural effusion or thickening. No suspicious lung nodules. Visualized upper abdomen is unremarkable. No suspicious osseous lesions or acute fractures. IMPRESSION: No pulmonary embolus identified within the main, lobar or segmental pulmonary arteries. Exposure: One or more of the following in the visualized dose reduction techniques were utilized for this examination: 1. Automated exposure control 2. Adjustment of the MA and/or KV according to patient size 3. Use of iterative of reconstructive technique Electronically signed by: Nahid Diaz MD (06/17/2019 9:41 PM) [facility] DICTATED AND SIGNED BY: NAHID DIAZ MD DATE: 06/17/192140 CC: SHAY SNEED MD; SANJUANITA WOO MD ~ [address] [place] [address] IMAGING REPORT Signed PATIENT: VELASQUEZ WRIGHT ACCOUNT: [id number] : 1965 LOCATION: ER AGE: 53 SEX: F EXAM STATUS: REG ER ORD. PHYSICIAN: SHAY SNEED MD REASON: cp, LEFT ARM PAIN, SHORT OF AIR. SINCE 1400 TODAY PROCEDURE: CHEST PA & LATERAL CHEST PA LATERAL Clinical indications: Shortness of air since 1400 hours today. Chest pain. COMPARISON: January 22, 2019. Findings: Granuloma of left lung base is evident. No acute lung infiltrate or pleural effusion or pulmonary edema or lung mass or pneumothorax is seen. The heart size, pulmonary vasculature, mediastinum and both umang are unremarkable. The osseous structures appear intact. Impression: No acute radiographic abnormality is seen. Electronically signed by: Janeth Kim MD (06/17/2019 7:16 PM) [facility] DICTATED AND SIGNED BY: JANETH KIM MD DATE: 06/17/191915 CC: SHAY SNEED MD; SANJUANITA WOO MD ~ Course & Med Decision Making Course & Med Decision Making Pertinent Labs and Imaging studies reviewed. (See chart for details) Heart Score 4-[address] Simon with cardiology consult 1. Chest Pain 2. Accelerated HTN 3. Elevated D-dimer 1.57 [] Dragon Disclaimer Dragon Disclaimer This electronic medical record was generated, in whole or in part, using a voice recognition dictation system. Departure Departure: Disposition: 01 HOME/RESIDENCE PRIOR TO ADM Condition: STABLE Referrals: SANJUANITA WOO MD (PCP) Dragon Disclaimer This chart was dictated in whole or in part using Voice Recognition software in a busy, high-work load, and often noisy Emergency Department environment. It may contain unintended and wholly unrecognized errors or omissions. Dragon Disclaimer This chart was dictated in whole or in part using Voice Recognition software in a busy, high-work load, and often noisy Emergency Department environment. It may contain unintended and wholly unrecognized errors or omissions. SHAY SNEED MD Jun 17, 2019 18:22
[2019-06-17] MEDS ORDERED: ASPIRIN 81 MG TAB.CHEW PO ONE (18:30)
[2019-06-17 18:48] LABS: BASO % 0 % (0-3); EOS # 0.3 x10^3/uL (0.0-0.7); EOS % 3 % (0-3); HEMATOCRIT 38.6 % (36.0-47.0); HEMOGLOBIN 12.7 g/dL (12.0-15.5); LYMPH # 1.5 x10^3/uL (1.0-4.8); LYMPH % 16 % (24-48); MEAN CORPUSCULAR HEMOGLOBIN 27 pg (25-35); MEAN CORPUSCULAR HGB CONC 33 g/dL (31-37); MEAN CORPUSCULAR VOLUME 82 fL (79-100); MONO # 0.6 x10^3/uL (0.0-1.1); MONO % 7 % (0-9); NEUT # 6.4 x10^3uL (1.8-7.7); NEUT % 73 % (31-73); PLATELET COUNT 328 x10^3/uL (140-400); RED BLOOD COUNT 4.71 x10^6/uL (3.50-5.40); RED CELL DISTRIBUTION WIDTH 15.8 % (11.5-14.5); WHITE BLOOD COUNT 8.8 x10^3/uL (4.0-11.0)
[2019-06-17 18:59] LABS: CALCIUM 9.1 mg/dL (8.5-10.1); CREATININE 0.8 mg/dL (0.6-1.0); POTASSIUM 3.4 mmol/L (3.5-5.1)
[2019-06-17] MEDS ORDERED: MORPHINE SULFATE 10 MG/ML SYRINGE. SQ ONE (19:00)
[2019-06-17] MEDS ORDERED: ENOXAPARIN ** NOTE DOSE ** SYRINGE SQ ONE (19:00)
[2019-06-17 19:15] LABS: ALBUMIN 3.5 g/dL (3.4-5.0); DIRECT BILIRUBIN 0.1 mg/dL (0.0-0.2); MAGNESIUM 1.9 mg/dL (1.8-2.4); TOTAL BILIRUBIN 0.3 mg/dL (0.2-1.0); TOTAL PROTEIN 7.5 g/dL (6.4-8.2)
--- NOTE | 2019-06-17 19:19 | RAD ---
CHEST PA LATERAL Clinical indications: Shortness of air since 1400 hours today. Chest pain. COMPARISON: January 22, 2019. Findings: Granuloma of left lung base is evident. No acute lung infiltrate or pleural effusion or pulmonary edema or lung mass or pneumothorax is seen. The heart size, pulmonary vasculature, mediastinum and both umang are unremarkable. The osseous structures appear intact. Impression: No acute radiographic abnormality is seen. Electronically signed by: Cedric Kim MD (06/17/2019 7:16 PM) [facility]
[2019-06-17 20:29] LABS: AMPHETAMINE/METHAMPHETAMINE NEG (NEG); BARBITURATES NEG (NEG); BENZODIAZEPINES NEG (NEG); CANNABINOIDS NEG (NEG); COCAINE NEG (NEG); METHADONE NEG (NEG); OPIATES POS (NEG); PHENCYCLIDINE NEG (NEG)
[2019-06-17] MEDS ORDERED: IOHEXOL 350 MG/ML 100 ML VIAL. IV ONE (20:30)
[2019-06-17] MEDS ORDERED: ONDANSETRON PF 4 MG/2 ML VIAL. IV PRN (20:30)
[2019-06-17] MEDS ORDERED: CONTRAST GIVEN MC PRN (20:30)
[2019-06-17] MEDS ORDERED: MORPHINE SULFATE 10 MG/ML SYRINGE. SQ PRN (20:30)
[2019-06-17] MEDS ORDERED: ACETAMINOPHEN 325 MG TABLET PO PRN (20:30)
[2019-06-17 20:43] LABS: BILIRUBIN,URINE NEG (NEG); CLARITY,URINE HAZY; COLOR,URINE YELLOW; GLUCOSE,URINE NEG (NEG); NITRITE,URINE NEG (NEG); RBC,URINE OCC /HPF (0-2); UROBILINOGEN,URINE 0.2 mg/dL (0.2 mg/dL); WBC,URINE OCC /HPF (0-4)
[2019-06-17 20:44] LABS: BACTERIA,URINE FEW /HPF (0-FEW); SQUAMOUS EPITHELIAL CELL,UR MOD /LPF; YEAST,URINE PRESENT /HPF
[2019-06-17] MEDS: IPRATRPIUM/ALBUTEROL 0.5/2.5MG 3 ML NEBU. NEB SCH (21:00)
--- NOTE | 2019-06-17 21:44 | RAD ---
Exam: CT of chest with contrast INDICATION: Chest pain TECHNIQUE: Sequential axial images through the chest obtained following the administration of 100 mL of Omni 350 IV contrast. Sagittal and coronal reformatted images were reconstructed from the axial data and reviewed. 3-D reformatted images were reconstructed from the axial data and reviewed. Comparisons: 01/02/2019 FINDINGS: Visualized portions of the thyroid are unremarkable. No enlarged mediastinal lymph nodes. Heart size is normal. No pericardial effusion. Thoracic aorta has a normal course and caliber. Pulmonary artery is not enlarged. No pulmonary embolus identified within the main, lobar or segmental pulmonary arteries. Airways are patent. No consolidation or pneumothorax. No pleural effusion or thickening. No suspicious lung nodules. Visualized upper abdomen is unremarkable. No suspicious osseous lesions or acute fractures. IMPRESSION: No pulmonary embolus identified within the main, lobar or segmental pulmonary arteries. Exposure: One or more of the following in the visualized dose reduction techniques were utilized for this examination: 1. Automated exposure control 2. Adjustment of the MA and/or KV according to patient size 3. Use of iterative of reconstructive technique Electronically signed by: Nahid Aquino MD (06/17/2019 9:41 PM) [facility]
[2019-06-17] MEDS: IV RINGERS SOLUTION,LACTATED 1,000 ML IV SCH (23:00)
--- NOTE | 2019-06-17 23:08 | EKG ---
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
[2019-06-17 23:42] VITALS: BP 145/92
--- NOTE | 2019-06-18 00:06 | NUR ---
The patient, VELASQUEZ WRIGHT, 53 y/o, F admitted by MARY MCDANIELS MD, was given written information regarding hospital policies, unit procedures and contact persons. Medical history and medications were reviewed with patient. Bed locked and in lowest position, call light within reach. Valuables were checked and left with patient.
[2019-06-18] MEDS: IPRATRPIUM/ALBUTEROL 0.5/2.5MG 3 ML NEBU. NEB SCH ×2 (05:11→09:44)
[2019-06-18] MEDS: IV RINGERS SOLUTION,LACTATED 1,000 ML IV SCH ×2 (05:31→09:00)
[2019-06-18 05:55] VITALS: BP 125/80
[2019-06-18 06:44] LABS: BASO % 1 % (0-3); EOS # 0.2 x10^3/uL (0.0-0.7); EOS % 3 % (0-3); HEMATOCRIT 34.9 % (36.0-47.0); HEMOGLOBIN 11.2 g/dL (12.0-15.5); LYMPH # 1.3 x10^3/uL (1.0-4.8); LYMPH % 19 % (24-48); MEAN CORPUSCULAR HEMOGLOBIN 27 pg (25-35); MEAN CORPUSCULAR HGB CONC 32 g/dL (31-37); MEAN CORPUSCULAR VOLUME 84 fL (79-100); MONO # 0.5 x10^3/uL (0.0-1.1); MONO % 8 % (0-9); NEUT # 5.1 x10^3uL (1.8-7.7); NEUT % 70 % (31-73); PLATELET COUNT 297 x10^3/uL (140-400); RED BLOOD COUNT 4.15 x10^6/uL (3.50-5.40); RED CELL DISTRIBUTION WIDTH 15.6 % (11.5-14.5); WHITE BLOOD COUNT 7.2 x10^3/uL (4.0-11.0)
[2019-06-18 06:52] LABS: CALCIUM 8.4 mg/dL (8.5-10.1); CREATININE 0.7 mg/dL (0.6-1.0); GFR 87.5; POTASSIUM 4.2 mmol/L (3.5-5.1)
[2019-06-18] MEDS ORDERED: NITROGLYCERIN SUBLINGUAL 0.4 MG BOTTLE OF 25. SL PRN (07:30)
[2019-06-18] MEDS ORDERED: ALBUTEROL SULFATE 2.5 MG/3 ML NEBU. IH PRN (07:30)
--- NOTE | 2019-06-18 07:39 | PDOC2 ---
ULIS CAMPBELL ACCESS REGISTRAR 06/18/19 0739: CARDIAC CONSULT DATE OF CONSULT Date Of Consult DATE: 06/18/19 TIME: 07:36 REASON FOR CONSULT Reason for Consult Chest pain Hypertension REFERRING PHYSICIAN Referring Physician Dr. Franco SOURCE Source: Chart review, Patient HPI History of Present Illness This is a 53 yo female who presented secondary to chest pain. Patient reports she was sitting in [employer] yesterday afternoon and began feeling short of breath. Bilateral shoulder, arms began aching. Then developing sharp pain in her central chest. felt slightly nauseated. No dizziness, diaphoresis, or palpitations. Took nitro SL x2 at home without any relief. Pain worsened throughout the day so she decided to come to the ED for further evaluation and treatment. Pain resolved with morphine. Had one slight episode of mild chest pain overnight, otherwise has been pain free. PAST MEDICAL HISTORY Cardiovascular: CAD, HTN, hyperipidemia Pulmonary: Pulmonary embolus GI: GERD Psych: Depression Musculoskeletal: Other (DDD) Endocrine: Diabetes, Hypothyroidism PAST SURGICAL HISTORY Past Surgical History: Cholecystectomy, Total knee replacement (left ), Hysterectomy FAMILY HISTORY Family History: Diabetes, High Cholestrol, Hypertension SOCIAL HISTORY Smoke: No ALCOHOL: none Drugs: None Lives: Roommate (boyfriend ) CURRENT MEDICATIONS Current Medications Current Medications Aspirin (Children'S Aspirin) 324 mg 1X ONCE PO ; Start 06/17/19 at 18:30; Stop 06/17/19 at 18:31; Status DC Lactated Ringer's 1,000 ml @ 100 mls/hr Q10H IV Last administered on 06/17/19at 18:38; Start 06/17/19 at 18:22; Stop 06/18/19 at 04:21; Status DC Morphine Sulfate (Morphine 10mg Syringe) 10 mg 1X ONCE SQ Last administered on 06/17/19at 19:05; Start 06/17/19 at 19:00; Stop 06/17/19 at 19:01; Status DC Enoxaparin Sodium (Lovenox 100mg Syringe) 90 mg 1X ONCE SQ Last administered on 06/17/19at 19:06; Start 06/17/19 at 19:00; Stop 06/17/19 at 19:01; Status DC Iohexol (Omnipaque 350 Mg/ml) 100 ml 1X ONCE IV Last administered on 06/17/19at 21:08; Start 06/17/19 at 20:30; Stop 06/17/19 at 20:31; Status DC Info (Do NOT chart on this entry -- for MONITORING) 1 each PRN DAILY PRN MC SEE COMMENTS; Start 06/17/19 at 20:30; Stop 06/19/19 at 20:29 Ondansetron HCl (Zofran) 4 mg PRN Q4HRS PRN IV NAUSEA/VOMITING Last administered on 06/17/19at 22:57; Start 06/17/19 at 20:30; Stop 06/18/19 at 20:29 Acetaminophen (Tylenol) 650 mg PRN Q4HRS PRN PO FEVER; Start 06/17/19 at 20:30; Stop 06/18/19 at 20:29 Albuterol/ Ipratropium (Duoneb) 3 ml RTQID NEB Last administered on 06/17/19at 21:00; Start 06/17/19 at 21:00; Stop 06/19/19 at 20:59 Aspirin (Children'S Aspirin) 81 mg DAILY PO ; Start 06/18/19 at 09:00 Enoxaparin Sodium (Lovenox 100mg Syringe) 90 mg BID SQ ; Start 06/18/19 at 09:00 Lactated Ringer's 1,000 ml @ 160 mls/hr Q6H15M IV Last administered on 06/18/19at 05:31; Start 06/17/19 at 20:30 Morphine Sulfate (Morphine 10mg Syringe) 10 mg PRN Q6HRS PRN SQ marked pain; Start 06/17/19 at 20:30 Albuterol Sulfate (Ventolin) 1 mg PRN Q4HRS PRN IH FOR ASTHMA; Start 06/18/19 at 07:30 Levothyroxine Sodium (Synthroid) 75 mcg DAILY06 PO ; Start 06/18/19 at 09:00 Lisinopril (Prinivil) 20 mg DAILY PO ; Start 06/18/19 at 09:00 Montelukast Sodium (Singulair) 10 mg HS PO ; Start 06/18/19 at 21:00 Nitroglycerin (Nitrostat) 1 mg PRN Q5MIN PRN SL chest pain; Start 06/18/19 at 07:30 Non-Formulary Medication (Escitalopram Oxalate ) 10 mg DAILY PO ; Start 06/18/19 at 09:00; Status UNV Non-Formulary Medication (Icosapent Ethyl (Vascepa)) 4 g HS PO ; Start 06/18/19 at 21:00; Status UNV Active Scripts Active Montelukast Sodium Tablet (Montelukast Sodium) 10 Mg Tablet 10 Mg PO HS Reported Escitalopram Oxalate 10 Mg Tablet 10 Mg PO DAILY Vascepa (Icosapent Ethyl) 1 Gm Capsule 4 G PO HS Levothyroxine Sodium 75 Mcg Tablet 75 Mcg PO DAILY06 Lisinopril 20 Mg Tablet 20 Mg PO DAILY NITROGLYCERIN SubLingual (Nitroglycerin) 0.4 Mg Tab.subl Proventil Hfa Inhaler (Albuterol Sulfate) 6.7 Gm Hfa.aer.ad 1 Puff IH PRN Q4HRS PRN ALLERGIES Allergies: Coded Allergies: Penicillins (Verified Allergy, Intermediate, 11/28/17) codeine (Verified Allergy, Intermediate, 06/17/19) TOLERATES MORPHINE ibuprofen (Verified Allergy, Intermediate, takes NAPROXEN at home, 03/03/18) tramadol (Verified Allergy, Intermediate, 11/28/17) I S O L A T I O N *CONTACT* (Verified Allergy, Unknown, 03/06/18) +MRSA nares 03/03/18 ROS Review of Systems 14 point ROS conducted with pertinent positives noted above in HPI PHYSICAL EXAM General: Alert, Oriented X3, Cooperative, mild distress HEENT: Atraumatic, Mucous membr. moist/pink Lungs: Clear to auscultation, Normal air movement Heart: Regular rate, Normal S1, Normal S2 Abdomen: Soft, No tenderness Extremities: No edema, Normal pulses Skin: No rashes, No breakdown Neuro: Normal speech, Sensation intact Psych/Mental Status: Mental status NL, Mood NL MUSCULOSKELETAL: Osteoarthritic changes both hands VITALS Vital Signs Vital Signs Date Time Temp Pulse Resp B/P (MAP) Pulse Ox O2 Delivery O2 Flow Rate FiO2 06/18/19 05:55 97.3 61 20 125/80 (95) 100 Room Air LABS LABS Laboratory Tests Test 06/17/19 18:23 06/17/19 19:38 06/18/19 06:10 White Blood Count 8.8 x10^3/uL (4.0-11.0) 7.2 x10^3/uL (4.0-11.0) Red Blood Count 4.71 x10^6/uL (3.50-5.40) 4.15 x10^6/uL (3.50-5.40) Hemoglobin 12.7 g/dL (12.0-15.5) 11.2 g/dL (12.0-15.5) Hematocrit 38.6 % (36.0-47.0) 34.9 % (36.0-47.0) Mean Corpuscular Volume 82 fL (79-100) 84 fL (79-100) Mean Corpuscular Hemoglobin 27 pg (25-35) 27 pg (25-35) Mean Corpuscular Hemoglobin Concent 33 g/dL (31-37) 32 g/dL (31-37) Red Cell Distribution Width 15.8 % (11.5-14.5) 15.6 % (11.5-14.5) Platelet Count 328 x10^3/uL (140-400) 297 x10^3/uL (140-400) Neutrophils (%) (Auto) 73 % (31-73) 70 % (31-73) Lymphocytes (%) (Auto) 16 % (24-48) 19 % (24-48) Monocytes (%) (Auto) 7 % (0-9) 8 % (0-9) Eosinophils (%) (Auto) 3 % (0-3) 3 % (0-3) Basophils (%) (Auto) 0 % (0-3) 1 % (0-3) Neutrophils # (Auto) 6.4 x10^3uL (1.8-7.7) 5.1 x10^3uL (1.8-7.7) Lymphocytes # (Auto) 1.5 x10^3/uL (1.0-4.8) 1.3 x10^3/uL (1.0-4.8) Monocytes # (Auto) 0.6 x10^3/uL (0.0-1.1) 0.5 x10^3/uL (0.0-1.1) Eosinophils # (Auto) 0.3 x10^3/uL (0.0-0.7) 0.2 x10^3/uL (0.0-0.7) Basophils # (Auto) 0.0 x10^3/uL (0.0-0.2) 0.0 x10^3/uL (0.0-0.2) Prothrombin Time 9.3 SEC (9.4-11.4) Prothromb Time International Ratio 0.9 (0.9-1.1) Activated Partial Thromboplast Time 23 SEC (23-33) D-Dimer (Mei) 1.57 mg/L (0.00-0.50) Sodium Level 140 mmol/L (136-145) 138 mmol/L (136-145) Potassium Level 3.4 mmol/L (3.5-5.1) 4.2 mmol/L (3.5-5.1) Chloride Level 102 mmol/L (98-107) 102 mmol/L (98-107) Carbon Dioxide Level 29 mmol/L (21-32) 29 mmol/L (21-32) Anion Gap 9 (6-14) 7 (6-14) Blood Urea Nitrogen 17 mg/dL (7-20) 15 mg/dL (7-20) Creatinine 0.8 mg/dL (0.6-1.0) 0.7 mg/dL (0.6-1.0) Estimated GFR (Cockcroft-Gault) 75.0 87.5 Glucose Level 124 mg/dL (70-99) 93 mg/dL (70-99) Calcium Level 9.1 mg/dL (8.5-10.1) 8.4 mg/dL (8.5-10.1) Magnesium Level 1.9 mg/dL (1.8-2.4) Total Bilirubin 0.3 mg/dL (0.2-1.0) Direct Bilirubin 0.1 mg/dL (0.0-0.2) Aspartate Amino Transf (AST/SGOT) 15 U/L (15-37) Alanine Aminotransferase (ALT/SGPT) 19 U/L (14-59) Alkaline Phosphatase 85 U/L (46-116) Creatine Kinase 53 U/L (26-192) Creatine Kinase MB (Mass) 0.7 ng/mL (0.0-3.6) Creatine Kinase MB Relative Index 1.3 % (0-4) Troponin I Quantitative < 0.017 ng/mL (0-0.055) CY-Qff-[id number]-Type Natriuretic Peptide 138 pg/mL (0-124) Total Protein 7.5 g/dL (6.4-8.2) Albumin 3.5 g/dL (3.4-5.0) Lipase 166 U/L (73-393) Urine Collection Type Unknown Urine Color Yellow Urine Clarity Hazy Urine pH 6.0 Urine Specific Crosby >=1.030 Urine Protein Neg (NEG-TRACE) Urine Glucose (UA) Neg mg/dL (NEG) Urine Ketones (Stick) Neg mg/dL (NEG) Urine Blood Neg (NEG) Urine Nitrite Neg (NEG) Urine Bilirubin Neg (NEG) Urine Urobilinogen Dipstick 0.2 mg/dL (0.2 mg/dL) Urine Leukocyte Esterase Neg (NEG) Urine RBC Occ /HPF (0-2) Urine WBC Occ /HPF (0-4) Urine Squamous Epithelial Cells Mod /LPF Urine Bacteria Few /HPF (0-FEW) Urine Mucus Slight /LPF Urine Yeast Present /HPF Urine Opiates Screen Pos (NEG) Urine Methadone Screen Neg (NEG) Urine Barbiturates Neg (NEG) Urine Phencyclidine Screen Neg (NEG) Urine Amphetamine/Methamphetamine Neg (NEG) Urine Benzodiazepines Screen Neg (NEG) Urine Cocaine Screen Neg (NEG) Urine Cannabinoids Screen Neg (NEG) Urine Ethyl Alcohol Neg (NEG) ECHOCARDIOGRAM Echocardiogram <Conclusion> The left ventricular systolic function is normal. The Ejection Fraction is 55-60%. There is normal LV segmental wall motion. Trace mitral regurgitation. Trace tricuspid regurgitation. There is mild pulmonary hypertension. The PA pressure was estimated at 33 mmHg. There is no evidence of significant pericardial effusion. DATE: 12/29/18 1215 HEART CATH Heart Cath FINDINGS 1. Hemodynamics: Elevated ventricular end-diastolic pressure of 30 mmHg consistent with acute on chronic diastolic heart failure. No pullback gradient across the aortic valve. 2. Left ventriculography: Normal left ventricle systolic function with ejection fraction estimated at 60%. No significant mitral regurgitation seen. 3. Coronary angiography: a. The left main coronary artery arose from the left sinus of Valsalva, gave rise to the left anterior descending and left circumflex arteries and did not show any significant stenosis. b. The left anterior descending artery did not show any significant stenosis. c. The left circumflex artery did not show any significant stenosis. d. The right coronary artery was a large and dominant vessel arising from the right sinus of Valsalva that showed 50-60% stenosis involving the midsegment there was physiologically insignificant based on IFR measurement. Conclusion 1. Nonobstructive coronary artery disease involving right coronary artery, confirmed physiologically insignificant with IFR measurement 2. Normal left ventricle systolic function with ejection fraction estimated at 60% 3. Elevated left ventricle end-diastolic pressure consistent with acute on chronic diastolic heart failure. Recommendations Medical Therapy DATE: 12/02/17 1145 ASSESSMENT/PLAN Assessment/Plan 1. Chest pain, atypical; initial trop negative. 2. CAD; cath 12/14 showed nonobstructive disease with 50-60% stenosis of the RCA as noted above. Recent echo with preserved LV systolic function 3. Hypertension; controlled 4. Hyperlipidemia; Vascepa 5. Diabetes,II 6. Hypothyroidism 7. Sinus bradycardia; HR in upper 40's overnight. No pauses. 8. H/o PE; CTA negative for PE 9. ? Anxiety component Recommendations Repeat troponin Lipids ASA therapy Secondary prevention Consider outpatient ischemic evaluation Patient to follow up in our office with Dr. Bacon as scheduled. ISAC BACON MD 06/18/19 1614: CARDIAC CONSULT ASSESSMENT/PLAN Assessment/Plan Patient seen and examined. Agree with MOTOR TESTER's assessment and plan. CP with atypical features. MD ruled out. Recent echo showed normal LVF and cath in 2018 showed non obstructive CAD RCA Brief episode of NSVT on telemetry noted Plan for outpatient Lexiscan nuclear stress test and event monitor recording Thank you for your consultation LUIS CAMPBELL APRN Jun 18, 2019 07:39 ISAC BACON MD Jun 18, 2019 16:14
--- NOTE | 2019-06-18 08:41 | NUR ---
IP: patient has hx of + MRSA screen, requires contact precautions until 2 negative results 7 days apart.
[2019-06-18] MEDS ORDERED: LISINOPRIL 20 MG TABLET PO SCH (09:00)
[2019-06-18] MEDS ORDERED: CITALOPRAM 20 MG TABLET. PO SCH (09:00)
[2019-06-18] MEDS ORDERED: LEVOTHYROXINE 75 MCG TABLET PO SCH (09:00)
[2019-06-18] MEDS ORDERED: ASPIRIN 81 MG TAB.CHEW PO SCH (09:00)
[2019-06-18] MEDS ORDERED: ENOXAPARIN ** NOTE DOSE ** SYRINGE SQ SCH (09:00)
[2019-06-18 10:46] VITALS: BP 129/73
[2019-06-18 14:03] LABS: THYROID STIM HORMONE (TSH) 4.404 uIU/mL (0.358-3.740)
[2019-06-18 14:36] VITALS: BP 143/69
--- NOTE | 2019-06-18 15:31 | SSS ---
ADMIT DATE: 06/18/2019 HISTORY OF PRESENT ILLNESS: The patient is a 53-year-old female patient who came to the Emergency Room with a complaint of chest pain that started yesterday when she was at the [employer]. The pain started around her neck and left shoulder. Her heart rate was fast and the pain has been constant since 2:00 in the afternoon until she arrived to the Emergency Room around 6:00. She apparently took 2 nitroglycerin at home at 1530 and 1630 without any improvement. She was evaluated in the Emergency Room and her first set of cardiac enzyme was less than 0.017. She was admitted and her EKG showed that she was in sinus rhythm with a heart rate of 94 beats per minute, no finding of acute ST segment elevation myocardial infarction. She has 2 more sets of cardiac enzymes that basically ruled out myocardial infarction. Her serum triglycerides were 276, total cholesterol 248, LDL cholesterol 54, VLDL was 55, HDL was 209, HDL cholesterol was 39 and ratio was 6. Her TSH was 4.404. She was seen in consultation by the rod hanger. D-dimer was high at 1.[address] scan of the chest showed no evidence of pulmonary emboli identified within the main lobar or segmental pulmonary embolism and she has had cardiac catheterization done in November of last year and apparently the plan was for her to be followed as an outpatient at Dr. Bacon's office that has already been scheduled. PAST MEDICAL HISTORY: Significant for hypertension, hyperlipidemia, history of DVT and pulmonary embolism as well as coronary artery disease, status post cardiac catheterization. PAST SURGICAL HISTORY: Significant for right total knee arthroplasty, back surgery, cholecystectomy, total abdominal hysterectomy, bilateral salpingo-oophorectomy as well as colonoscopy. ALLERGIES: She is ALLERGIC TO PENICILLIN, CODEINE, IBUPROFEN, AND TRAMADOL. FAMILY HISTORY: She has one brother who has 4 stents and one sister who has 2 stents. Father at age of 49 because of myocardial infarction. Mother at the age of 74 because of breast cancer. SOCIAL HISTORY: She is twice, currently single, lives with her boyfriend. She has 2 sons. She has never smoked, does not drink alcohol or use any recreational drugs. She is currently on disability. REVIEW OF SYSTEMS: As in history of present illness. PHYSICAL EXAMINATION GENERAL: On arrival to the Emergency Room, she looked well and was clearly in no apparent respiratory distress. No pallor, jaundice, cyanosis or thyromegaly. No jugular venous distention. No limb edema. VITAL SIGNS: Her heart rate was 78, blood pressure was 145/92, temperature was 98.2, respiratory rate 20, and oxygen saturation was 92%. HEAD, EYES, EARS, NOSE AND THROAT: Showed normocephalic, atraumatic. NECK: Supple. HEART: Showed normal first and second heart sounds. No gallop or murmur. CHEST: Clear to auscultation. No crepitation or rhonchi. ABDOMEN: Distended, soft, nontender. NEUROLOGIC: She is awake, alert, responding appropriately. All her cranial nerves intact. EXTREMITIES: She moves extremities without difficulty. She ambulates without assistance or assistive devices. LABORATORY DIAGNOSTIC DATA: Her lab work on admission showed a white cell count of 8800, hemoglobin was 12.7, hematocrit 38.6, MCV 82 and platelet count of 328,000. Her serum sodium was 140, potassium 3.4, chloride 102, bicarbonate 29, anion gap of 9, BUN 17, creatinine 0.8, estimated GFR was 75 mL per minute. Her glucose was 124, calcium 9.1, magnesium was 1.9. Total bilirubin, AST, ALT, alkaline phosphatase were normal. Total protein was 7.5, albumin 3.5. Her prothrombin time, INR and aPTT normal. D-dimer was high at 1.57. Urinalysis was essentially unremarkable and toxic screen was positive for opiates, negative for all other medication drugs. Her chest x-ray showed no acute radiographic abnormality and CT angio of the chest showed no evidence of PE. ASSESSMENT AND PLAN: The patient will be discharged home to continue on her current medications that include albuterol sulfate 1 puff every 4 hours, escitalopram 10 mg daily, Vascepa 4 grams daily at bedtime, lisinopril 20 mg once a day, montelukast for Singulair 10 mg once a day, and nitroglycerin 0.4 mg sublingually every 5 minutes x 3. FINAL DISCHARGE DIAGNOSES: Chest pain with acute myocardial infarction ruled out. The patient has coronary artery disease; however, cardiac catheterization in 11/2017 showed nonobstructive disease with 50-60% stenosis right coronary artery, most recent echocardiogram showed preserved left ventricular systolic function, hypertension, hyperlipidemia, on Vascepa, type 2 diabetes, hypothyroidism, history of pulmonary embolism. MARY MCDANIELS MD DR: REY/johnny JOB#: [id number] / [id number]
--- NOTE | 2019-06-18 16:08 | NUR ---
NSG NOTE; DISCHARGE VERBAL AND WRITTEN DISCHARGE INSTRUCTIONS GIVEN TO PT WITH VERBAL UNDERSTANDING DISCHARGED TO HOME AT 1605 VIA AMB ACCOMP BY SO
[2019-06-18] MEDS ORDERED: ICOSAPENT ETHYL 4 GM PO SCH (21:00)
[2019-06-18] MEDS ORDERED: MONTELUKAST 10 MG TABLET. PO SCH (21:00)
== END 2019-06-18 16:05 | disposition home or self-care (01) ==
LOC: ER 18:12 → 1 SOUTH 20:00 → INTOOBSV 20:00
PROVIDERS: ADMIT Internal Medicine; ATTEND Internal Medicine
DX: R07.89 Other chest pain (principal); I25.10 Atherosclerotic heart disease of native coronary artery without angina pectoris; I10 Essential (primary) hypertension; E78.5 Hyperlipidemia, unspecified; E11.9 Type 2 diabetes mellitus without complications; E03.9 Hypothyroidism, unspecified; E78.00 Pure hypercholesterolemia, unspecified; Z86.711 Personal history of pulmonary embolism; Z95.1 Presence of aortocoronary bypass graft; Z86.718 Personal history of other venous thrombosis and embolism; Z90.710 Acquired absence of both cervix and uterus; Z90.49 Acquired absence of other specified parts of digestive tract; Z87.891 Personal history of nicotine dependence
CPT/HCPCS: 36415; 71046; 71275; 80048; 80061; 80076; 80307; 81001; 82553; 83690; 83735; 83880; 84443; 84484; 85025; 85379; 85610; 85730; 87641; 93005; 94640; 96372; 96374; 99284; G0378; J1650; J2270; J2405; J7120; J7620; Q9967; G0379

== ENCOUNTER 2019-07-13 07:52 | Emergency (ER) | payer OTHER, MEDICAID ==
[~2019-07-13] VITALS: Ht 160 cm; Wt 90.0 kg
[2019-07-13 08:14] LABS: BASO # 0.1 x10^3/uL (0.0-0.2); BASO % 1 % (0-3); EOS # 0.2 x10^3/uL (0.0-0.7); EOS % 3 % (0-3); HEMATOCRIT 41.5 % (36.0-47.0); HEMOGLOBIN 13.8 g/dL (12.0-15.5); LYMPH # 1.1 x10^3/uL (1.0-4.8); LYMPH % 19 % (24-48); MEAN CORPUSCULAR HEMOGLOBIN 28 pg (25-35); MEAN CORPUSCULAR HGB CONC 33 g/dL (31-37); MEAN CORPUSCULAR VOLUME 84 fL (79-100); MONO # 0.5 x10^3/uL (0.0-1.1); MONO % 9 % (0-9); NEUT # 3.9 x10^3uL (1.8-7.7); NEUT % 68 % (31-73); PLATELET COUNT 302 x10^3/uL (140-400); RED BLOOD COUNT 4.97 x10^6/uL (3.50-5.40); RED CELL DISTRIBUTION WIDTH 16.4 % (11.5-14.5); WHITE BLOOD COUNT 5.8 x10^3/uL (4.0-11.0)
--- NOTE | 2019-07-13 08:23 | PHYS DOC ---
Past History Past Medical History: Arrhythmia, COPD, Fibromyalgia, High Cholesterol, Hypertension, Other Additional Past Medical Histor: pulmonary embolism Past Surgical History: Cholecystectomy, Hysterectomy, Other Additional Past Surgical Histo: right knee, neck surgery Smoking: Quit Greater Than 1 Year Alcohol Use: None Drug Use: None Adult General Chief Complaint Chief Complaint: CHEST PAIN HPI HPI 53-year-old female presents with continued shortness of breath and chest pain. She was in her by her primary care physician. The patient was admitted overnight for chest pain about 3 weeks ago. She has continued to have intermittent palpitations and shortness of breath. Her primary care physician sent her here today. She has had a pulmonary embolus in the past. Her only symptom at that time was also shortness of breath. She does not remember why she got pulmonary embolus. She denies fever. She does have increased shortness of breath with exertion. The chest pain is basically associated with shortness of breath. Review of Systems Review of Systems Constitutional: Denies fever or chills [] Eyes: Denies change in visual acuity, redness, or eye pain [] HENT: Denies nasal congestion or sore throat [] Respiratory: Denies cough or shortness of breath [] Cardiovascular: No additional information not addressed in HPI [] GI: Denies abdominal pain, nausea, vomiting, bloody stools or diarrhea [] : Denies dysuria or hematuria [] Musculoskeletal: Denies back pain or joint pain [] Integument: Denies rash or skin lesions [] Neurologic: Denies headache, focal weakness or sensory changes [] Endocrine: Denies polyuria or polydipsia [] All other systems were reviewed and found to be within normal limits, except as documented in this note. Current Medications Current Medications Current Medications Medications (Trade) Dose Ordered Sig/Ophelia Start Time Stop Time Status Last Admin Dose Admin Aspirin (Children'S Aspirin) 324 mg 1X ONCE 07/13/19 08:30 07/13/19 08:31 Allergies Allergies Allergies Coded Allergies Type Severity Reaction Last Updated Verified Penicillins Allergy Intermediate 11/28/17 Yes codeine Allergy Intermediate 06/17/19 Yes ibuprofen Allergy Intermediate takes NAPROXEN at home 03/03/18 Yes tramadol Allergy Intermediate 11/28/17 Yes I S O L A T I O N *CONTACT* Allergy Unknown 03/06/18 Yes Physical Exam Physical Exam Constitutional: Well developed, well nourished, no acute distress, non-toxic appearance. [] HENT: Normocephalic, atraumatic, bilateral external ears normal, oropharynx moist, no oral exudates, nose normal. [] Eyes: PERRLA, EOMI, conjunctiva normal, no discharge. [] Neck: Normal range of motion, no tenderness, supple, no stridor. [] Cardiovascular:Heart rate regular rhythm, no murmur [] Lungs & Thorax: Bilateral breath sounds clear to auscultation [] Abdomen: Bowel sounds normal, soft, no tenderness, no masses, no pulsatile masses. [] Skin: Warm, dry, no erythema, no rash. [] Back: No tenderness, no CVA tenderness. [] Extremities: No tenderness, no cyanosis, no clubbing, ROM intact, no edema. [] Neurologic: Alert and oriented X 3, normal motor function, normal sensory function, no focal deficits noted. [] Psychologic: Affect normal, judgement normal, mood normal. [] Current Patient Data Vital Signs Vital Signs Date Time Temp Pulse Resp B/P (MAP) Pulse Ox O2 Delivery O2 Flow Rate FiO2 07/13/19 07:52 98.2 63 18 164/107 (126) 96 Room Air Lab Results Laboratory Tests Test 07/13/19 07:57 White Blood Count 5.8 x10^3/uL (4.0-11.0) Red Blood Count 4.97 x10^6/uL (3.50-5.40) Hemoglobin 13.8 g/dL (12.0-15.5) Hematocrit 41.5 % (36.0-47.0) Mean Corpuscular Volume 84 fL (79-100) Mean Corpuscular Hemoglobin 28 pg (25-35) Mean Corpuscular Hemoglobin Concent 33 g/dL (31-37) Red Cell Distribution Width 16.4 % (11.5-14.5) H Platelet Count 302 x10^3/uL (140-400) Neutrophils (%) (Auto) 68 % (31-73) Lymphocytes (%) (Auto) 19 % (24-48) L Monocytes (%) (Auto) 9 % (0-9) Eosinophils (%) (Auto) 3 % (0-3) Basophils (%) (Auto) 1 % (0-3) Neutrophils # (Auto) 3.9 x10^3uL (1.8-7.7) Lymphocytes # (Auto) 1.1 x10^3/uL (1.0-4.8) Monocytes # (Auto) 0.5 x10^3/uL (0.0-1.1) Eosinophils # (Auto) 0.2 x10^3/uL (0.0-0.7) Basophils # (Auto) 0.1 x10^3/uL (0.0-0.2) EKG EKG Sinus rhythm, rate 67, normal axis, no ST elevations or depressions. Flattened T waves[] Radiology/Procedures Radiology/Procedures [] Impressions: PORTABLE CHEST 1V Clinical indications: Chest pain. COMPARISON: June 17, 2019. Findings: Granuloma of the left lung base is seen. No acute lung infiltrate or pleural effusion or pulmonary edema or lung mass or pneumothorax is seen. The heart size, pulmonary vasculature, mediastinum and both umang are unremarkable. Impression: No acute radiographic abnormality is seen. Electronically signed by: Janeth Kim MD (07/13/2019 8:31 AM) [id number] DICTATED AND SIGNED BY: JANETH KIM MD DATE: 07/13/19 0831 CC: CHRIST TORRES DO; SANJUANITA ALFORD MD ~ CTA OF THE CHEST WITH AND WITHOUT CONTRAST Clinical indications: Chest pain and shortness of breath. Technique: Noncontrast axial localizer was performed. After IV infusion of 100 cc of Omnipaque 350, helical CT scanning of the chest was performed using the CT pulmonary embolism protocol. A coronal MIP reconstruction was generated. PQRS compliance Statement One or more of the following individualized dose reduction techniques were utilized for this study: 1. Automated exposure control 2. Adjustment of the mA and/or kV according to patient size 3. Use of iterative reconstruction technique Comparison: June 17, 2019 Findings: No pulmonary embolism is evident. No focal aneurysmal dilatation or dissection of the thoracic aorta is seen. Mild cardiomegaly is seen. No pericardial effusion is evident. No enlarged thoracic lymphadenopathy is seen. Bilateral groundglass lung infiltrates are seen most likely due to atelectasis. Pulmonary edema is certainly possible if there are clinical findings of rales. No lung consolidation or lung mass is evident. No pleural effusion or pneumothorax is seen. The proximal bronchial tree is patent. No lytic process is seen. No adrenal mass is evident. IMPRESSION: No pulmonary embolism. Bilateral groundglass lung infiltrates most likely representing atelectasis given the decreased lung volumes. This may be seen with pulmonary edema if there are clinical findings of rales. Mild cardiomegaly. Electronically signed by: Janeth Kim MD (07/13/2019 10:27 AM) [id number] DICTATED AND SIGNED BY: JANETH KIM MD DATE: 07/13/19 1027 CC: CHRIST TORRES DO; SANJUANITA ALFORD MD ~ Course & Med Decision Making Course & Med Decision Making Pertinent Labs and Imaging studies reviewed. (See chart for details) The patient had an elevated d-dimer, so I ordered a CT angio of the chest. CT is negative for pulmonary embolus. There is some evidence of possible pulmonary edema. The patient's proBNP is negative so this makes pulmonary edema unlikely. I'm not exactly sure why the patient is feeling more short of breath, although does not appear to be an acute, life-threatening cardiopulmonary problem. She is stable for discharge at this time. [] Dragon Disclaimer Dragon Disclaimer This electronic medical record was generated, in whole or in part, using a voice recognition dictation system. The HEART Score for CP Pts HEART Score for Chest Pain: HEART Score for Chest Pain Response (Comments) Value History Slighlty/Non-Suspicious 0 ECG Nonspecific Repolarizatio 1 Age >45 - < 65 1 Risk Factors 1 or 2 Risk Factors 1 Total 3 Risk Factors: Risk Factors: DM, Current or recent (<one month) smoker, HTN, HLP, family history of CAD, obesity. Risk Scores: Score 0 - 3: 2.5% MACE over next 6 weeks - Discharge Home Score 4 - 6: 20.3% MACE over next 6 weeks - Admit for Clinical Observation Score 7 - 10: 72.7% MACE over next 6 weeks - Early Invasive Strategies Departure Departure: Impression: Primary Impression: Shortness of breath Additional Impression: Atypical chest pain Disposition: HOME, SELF-CARE Condition: STABLE Referrals: SANJUANITA ALFORD MD (PCP) Patient Instructions: Chest Pain (Nonspecific), [id number], Shortness of Breath, [id number] Problem Qualifiers CHRIST TORRES DO Jul 13, 2019 08:23
[2019-07-13 08:24] LABS: CALCIUM 8.8 mg/dL (8.5-10.1); CREATININE 0.7 mg/dL (0.6-1.0); GFR 87.5; POTASSIUM 4.1 mmol/L (3.5-5.1)
[2019-07-13] MEDS ORDERED: ASPIRIN 81 MG TAB.CHEW PO ONE (08:30)
--- NOTE | 2019-07-13 08:34 | RAD ---
PORTABLE CHEST 1V Clinical indications: Chest pain. COMPARISON: June 17, 2019. Findings: Granuloma of the left lung base is seen. No acute lung infiltrate or pleural effusion or pulmonary edema or lung mass or pneumothorax is seen. The heart size, pulmonary vasculature, mediastinum and both umang are unremarkable. Impression: No acute radiographic abnormality is seen. Electronically signed by: Cedric Kim MD (07/13/2019 8:31 AM) [id number]
[2019-07-13 08:36] LABS: ALBUMIN 3.8 g/dL (3.4-5.0); TOTAL BILIRUBIN 0.3 mg/dL (0.2-1.0); TOTAL PROTEIN 7.6 g/dL (6.4-8.2)
[2019-07-13] MEDS ORDERED: IOHEXOL 350 MG/ML 100 ML VIAL. IV ONE (09:45)
[2019-07-13] MEDS ORDERED: CONTRAST GIVEN MC PRN (10:00)
--- NOTE | 2019-07-13 10:30 | RAD ---
CTA OF THE CHEST WITH AND WITHOUT CONTRAST Clinical indications: Chest pain and shortness of breath. Technique: Noncontrast axial localizer was performed. After IV infusion of 100 cc of Omnipaque 350, helical CT scanning of the chest was performed using the CT pulmonary embolism protocol. A coronal MIP reconstruction was generated. PQRS compliance Statement One or more of the following individualized dose reduction techniques were utilized for this study: 1. Automated exposure control 2. Adjustment of the mA and/or kV according to patient size 3. Use of iterative reconstruction technique Comparison: June 17, 2019 Findings: No pulmonary embolism is evident. No focal aneurysmal dilatation or dissection of the thoracic aorta is seen. Mild cardiomegaly is seen. No pericardial effusion is evident. No enlarged thoracic lymphadenopathy is seen. Bilateral groundglass lung infiltrates are seen most likely due to atelectasis. Pulmonary edema is certainly possible if there are clinical findings of rales. No lung consolidation or lung mass is evident. No pleural effusion or pneumothorax is seen. The proximal bronchial tree is patent. No lytic process is seen. No adrenal mass is evident. IMPRESSION: No pulmonary embolism. Bilateral groundglass lung infiltrates most likely representing atelectasis given the decreased lung volumes. This may be seen with pulmonary edema if there are clinical findings of rales. Mild cardiomegaly. Electronically signed by: Cedric Kim MD (07/13/2019 10:27 AM) [id number]
[2019-07-13 10:55] VITALS: BP 142/86
--- NOTE | 2019-07-13 12:02 | EKG ---
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
== END 2019-07-13 11:10 | disposition home or self-care (01) ==
LOC: ER 07:52
DX: R06.02 Shortness of breath (principal); R07.89 Other chest pain; R00.2 Palpitations; J44.9 Chronic obstructive pulmonary disease, unspecified; E78.5 Hyperlipidemia, unspecified; I10 Essential (primary) hypertension; Z90.49 Acquired absence of other specified parts of digestive tract; Z90.710 Acquired absence of both cervix and uterus; Z87.891 Personal history of nicotine dependence; Z88.0 Allergy status to penicillin; Z88.5 Allergy status to narcotic agent; Z88.8 Allergy status to other drugs, medicaments and biological substances
CPT/HCPCS: 36415; 71045; 71275; 80053; 83880; 84484; 85025; 85379; 93005; 99285; Q9967

== ENCOUNTER 2020-01-19 13:14 | Emergency (ER) | payer OTHER, MEDICAID ==
[~2020-01-19] VITALS: Ht 160 cm; Wt 91.9 kg
--- NOTE | 2020-01-19 14:29 | PHYS DOC ---
Past History Past Medical History: Arrhythmia, COPD, Fibromyalgia, High Cholesterol, Hypertension, Other Additional Past Medical Histor: pulmonary embolism Past Surgical History: Cholecystectomy, Hysterectomy, Other Additional Past Surgical Histo: right knee, neck surgery Smoking: Quit Greater Than 1 Year Alcohol Use: None Drug Use: None General Adult EDM: Chief Complaint: SKIN RASH/ABSCESS HPI: HPI: 54 old female presents with right wrist rash. The patient had a cardiac cath at [facility] yesterday. When she took off of the Tegaderm patch, she had 2 or 3 areas of erythema underwear the Tegaderm was. It is pruritic. Her wrist is generally more swollen than the left. She is 1 to make sure it was not a big deal. She denies fever, chills. She has no other complaints at this time. Review of Systems: Review of Systems: Constitutional: Denies fever or chills Eyes: Denies change in visual acuity HENT: Denies nasal congestion or sore throat Respiratory: Denies cough or shortness of breath Cardiovascular: Denies chest pain or edema GI: Denies abdominal pain, nausea, vomiting, bloody stools or diarrhea : Denies dysuria Musculoskeletal: Denies back pain or joint pain Integument: Rash right wrist Neurologic: Denies headache, focal weakness or sensory changes Endocrine: Denies polyuria or polydipsia Lymphatic: Denies swollen glands Psychiatric: Denies depression or anxiety Heart Score: Risk Factors: Risk Factors: DM, Current or recent (<one month) smoker, HTN, HLP, family history of CAD, obesity. Risk Scores: Score 0 - 3: 2.5% MACE over next 6 weeks - Discharge Home Score 4 - 6: 20.3% MACE over next 6 weeks - Admit for Clinical Observation Score 7 - 10: 72.7% MACE over next 6 weeks - Early Invasive Strategies Allergies: Allergies: Allergies Coded Allergies Type Severity Reaction Last Updated Verified Penicillins Allergy Intermediate 11/28/17 Yes codeine Allergy Intermediate 06/17/19 Yes ibuprofen Allergy Intermediate takes NAPROXEN at home 03/03/18 Yes tramadol Allergy Intermediate 11/28/17 Yes I S O L A T I O N *CONTACT* Allergy Unknown 03/06/18 Yes Physical Exam: PE: Constitutional: Well developed, well nourished, no acute distress, non-toxic appearance. [] HENT: Normocephalic, atraumatic, bilateral external ears normal, oropharynx moist, no oral exudates, nose normal. [] Eyes: PERRLA, EOMI, conjunctiva normal, no discharge. [] Neck: Normal range of motion, no tenderness, supple, no stridor. [] Cardiovascular:Heart rate regular rhythm, no murmur [] Lungs & Thorax: Bilateral breath sounds clear to auscultation [] Abdomen: Bowel sounds normal, soft, no tenderness, no masses, no pulsatile masses. [] Skin: 3 1.5 cm erythematous areas on the right wrist consistent with skin irritation, no warmth to the touch. [] Back: No tenderness, no CVA tenderness. [] Extremities: No tenderness, no cyanosis, no clubbing, ROM intact, no edema. [] Neurologic: Alert and oriented X 3, normal motor function, normal sensory fu nction, no focal deficits noted. [] Psychologic: Affect normal, judgement normal, mood normal. [] Current Patient Data: Vital Signs: Vital Signs Date Time Temp Pulse Resp B/P (MAP) Pulse Ox O2 Delivery O2 Flow Rate FiO2 01/19/20 13:38 98.4 71 16 157/86 (109) 98 Room Air EKG: EKG: [] Radiology/Procedures: Radiology/Procedures: [] Course & Med Decision Making: Course & Med Decision Making Pertinent Labs and Imaging studies reviewed. (See chart for details) The patient skin looks like she may have had a small allergic reaction before possibly just irritation from the glue. The patient cannot take Benadryl because it makes her sick. I have advised she take a nondrowsy medication such as cetirizine and consider Pepcid for the itch. This should self resolve in a day or 2. She is stable for discharge at this time. [] Dragon Disclaimer: Dragon Disclaimer: This electronic medical record was generated, in whole or in part, using a voice recognition dictation system. Departure Departure: Impression: Primary Impression: Allergic reaction Disposition: 01 HOME/RESIDENCE PRIOR TO ADM Condition: STABLE Referrals: SANJUANITA ALFORD MD (PCP) Additional Instructions: You can take cetirizine or Hafsa for your rash and itching. You can also take Pepcid 20 mg twice a day for itch. The skin should get better on its own in a couple days. If your condition worsens you may return to the emergency room as needed. Justification of Admission: Justification of Admission: Justification of Admission Dx: N/A CHRIST TORRES DO Jan 19, 2020 14:29
[2020-01-19 14:32] VITALS: BP 139/55
[2020-01-20] MEDS ORDERED: ATORVASTATIN CA80 MG PO (05:28)
[2020-01-20] MEDS ORDERED: LOSA100T14 PO (05:28)
== END 2020-01-19 14:43 | disposition home or self-care (01) ==
LOC: ER 13:14
DX: T78.49XA Other allergy, initial encounter (principal); J44.9 Chronic obstructive pulmonary disease, unspecified; M79.7 Fibromyalgia; E78.00 Pure hypercholesterolemia, unspecified; I10 Essential (primary) hypertension; Z86.711 Personal history of pulmonary embolism; Z87.891 Personal history of nicotine dependence; Z88.0 Allergy status to penicillin; Z88.5 Allergy status to narcotic agent; Z88.8 Allergy status to other drugs, medicaments and biological substances; X58.XXXA Exposure to other specified factors, initial encounter
CPT/HCPCS: 99282

== ENCOUNTER 2020-01-20 00:54 | Observation (INO) | payer OTHER, MEDICAID ==
[~2020-01-20] VITALS: Ht 160 cm; Wt 93.5 kg
--- NOTE | 2020-01-20 00:59 | PHYS DOC ---
Past History Past Medical History: Arthritis, Arrhythmia, Bronchitis, CAD, COPD, DVT, Fibromyalgia, High Cholesterol, Hypertension, Other Additional Past Medical Histor: pulmonary embolism Past Surgical History: Cholecystectomy, Hysterectomy, Other Additional Past Surgical Histo: right knee, neck surgery Smoking: Quit Greater Than 1 Year Alcohol Use: None Drug Use: None General Adult HPI: HPI: ".. I am still having constant chest pain...tonight... 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 Pt. underwent cardiac cath. on Tuesday by Dr. Bacon at [facility]. S tatkehinde her pain is 10/10 , central. Her episodes of chest has never improved since the cath and discharge from [facility]. Pt. does have a significant history for hypertension, COPD, bronchitis, fibromyalgia, chronic pain, episode of dysrhythmia, seasonal allergies, GERD hyperlipidemia, DVT, pulmonary embolism, coronary artery disease, myocardial infarction and angioplasties. Patient does have past surgical history for right total knee, cervical laminectomy, angioplasty, cholecystectomy, hysterectomy, and bilateral oophorectomy, and screening coloscopic and EGDs. Patient's family history multiple members have had coronary artery disease issues. One brother has had 4 stents 1 sister with a 2 stents. Father age 49 because of myocardial infarction. Mother has history of breast cancer and at age 74. Patient states she has not smoked for at least over a year. Review of Systems: Review of Systems: Constitutional: Denies fever or chills Eyes: Denies change in visual acuity HENT: Denies nasal congestion or sore throat Respiratory: Denies cough or shortness of breath Cardiovascular: Complaints of chest pain GI: Denies abdominal pain, nausea, vomiting, bloody stools or diarrhea : Denies dysuria Musculoskeletal: Denies back pain or joint pain Integument: Denies rash Neurologic: Denies headache, focal weakness or sensory changes Endocrine: Denies polyuria or polydipsia Lymphatic: Denies swollen glands Psychiatric: Denies depression or anxiety Heart Score: HEART Score for Chest Pain: HEART Score for Chest Pain Response (Comments) Value History Slighlty/Non-Suspicious 0 ECG Nonspecific Repolarizatio 1 Age >45 - < 65 1 Risk Factors 1 or 2 Risk Factors 1 Troponin < Normal Limit 0 Total 3 Risk Factors: Risk Factors: DM, Current or recent (<one month) smoker, HTN, HLP, family history of CAD, obesity. Risk Scores: Score 0 - 3: 2.5% MACE over next 6 weeks - Discharge Home Score 4 - 6: 20.3% MACE over next 6 weeks - Admit for Clinical Observation Score 7 - 10: 72.7% MACE over next 6 weeks - Early Invasive Strategies Family History: Family History: Multiple family members with coronary artery disease Current Medications: Current Meds: See nursing for home meds Allergies: Allergies: Allergies Coded Allergies Type Severity Reaction Last Updated Verified Penicillins Allergy Intermediate 11/28/17 Yes codeine Allergy Intermediate 06/17/19 Yes ibuprofen Allergy Intermediate takes NAPROXEN at home 03/03/18 Yes tramadol Allergy Intermediate 11/28/17 Yes I S O L A T I O N *CONTACT* Allergy Unknown 03/06/18 Yes Physical Exam: PE: Constitutional: Moderate acute distress, non-toxic appearance. [] HENT: Normocephalic, atraumatic, bilateral external ears normal, oropharynx moist, no oral exudates, nose normal. Old surgery scar Eyes: PERRLA, EOMI, conjunctiva normal, no discharge. [] Glasses Neck: Normal range of motion, no tenderness, supple, no stridor. Old surgery scar Cardiovascular:Heart rate regular rhythm, no murmur [], PMI to the left Lungs & Thorax: Bilateral breath sounds equal at apex with few scattered wheezes on auscultation Abdomen: Bowel sounds normal, soft, no tenderness, no masses, no pulsatile masses. Old surgery scars Skin: Warm, dry, no erythema, no rash. [] Back: No tenderness, no CVA tenderness. [] Extremities: Bilateral leg tenderness tenderness, no cyanosis, no clubbing, ROM intact, no edema. [] Right knee scar Neurologic: Alert and oriented X 3, normal motor function, normal sensory function, no focal deficits noted. [] DTRs +2 patella and brachial. Psychologic: Affect very anxious,, judgement normal, mood normal. [] EKG: EKG: My interpretation EKG shows a sinus rhythm at 84 bpm. There is mild leftward axis changes. But no findings of acute STEMI of contralateral changes. [] Radiology/Procedures: Radiology/Procedures: My interpretation of chest x-ray shows no acute interval changes as compared to prior x-rays. Does have findings of prior neck laminectomy degenerative joint changes. Borderline cardiomegaly. No free air in the diaphragm. No significant large infiltrate. Does have findings of granuloma left lung base also seen on previous film. Course & Med Decision Making: Course & Med Decision Making Pertinent Labs and Imaging studies reviewed. (See chart for details) Discussed presentation, testing and treatment plan with , will admit for chest pain rule out. At time of admission patient's electrolytes still not back from lab. Patient to have cardiology consult. Consider evaluation of for PE and DVT. - For now cover with Lovenox. Still waiting for Electrolytes- Labs has no over ride with [employer]. 0400 Impression: 1. Chest pain-atypical 2. Chronic pain/fibromyalgia 3. History of hypertension 4. History of a lipids 5. History of DVT and pulmonary embolisms 6. Elevated d-dimer1.06 [] Dragon Disclaimer: Dragon Disclaimer: This electronic medical record was generated, in whole or in part, using a voice recognition dictation system. Departure Departure: Disposition: 01 HOME/RESIDENCE PRIOR TO ADM Condition: STABLE Referrals: SANJUANITA ALFORD MD (PCP) Justification of Admission: Justification of Admission: Justification of Admission Dx: Yes Comments: Atypical chest pain Dragon Disclaimer This chart was dictated in whole or in part using Voice Recognition software in a busy, high-work load, and often noisy Emergency Department environment. It may contain unintended and wholly unrecognized errors or omissions. Dragon Disclaimer This chart was dictated in whole or in part using Voice Recognition software in a busy, high-work load, and often noisy Emergency Department environment. It may contain unintended and wholly unrecognized errors or omissions. SHAY SNEED MD Jan 20, 2020 00:59
[2020-01-20] MEDS ORDERED: IV RINGERS SOLUTION,LACTATED 1,000 ML IV SCH (01:30)
[2020-01-20] MEDS ORDERED: MORPHINE SULFATE 10 MG/ML SYRINGE. SQ ONE (01:30)
[2020-01-20] MEDS ORDERED: NITROGLYCERIN OINT 1 GM PACKET. TP ONE (01:30)
[2020-01-20] MEDS ORDERED: ENOXAPARIN ** NOTE DOSE ** SYRINGE SQ ONE (01:45)
--- NOTE | 2020-01-20 01:53 | EKG ---
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
[2020-01-20 02:04] LABS: BASO % 1 % (0-3); EOS # 0.2 x10^3/uL (0.0-0.7); EOS % 3 % (0-3); HEMATOCRIT 37.5 % (36.0-47.0); HEMOGLOBIN 12.4 g/dL (12.0-15.5); LYMPH # 1.2 x10^3/uL (1.0-4.8); LYMPH % 17 % (24-48); MEAN CORPUSCULAR HEMOGLOBIN 29 pg (25-35); MEAN CORPUSCULAR HGB CONC 33 g/dL (31-37); MEAN CORPUSCULAR VOLUME 87 fL (79-100); MONO # 0.5 x10^3/uL (0.0-1.1); MONO % 7 % (0-9); NEUT # 5.3 x10^3uL (1.8-7.7); NEUT % 73 % (31-73); PLATELET COUNT 309 x10^3/uL (140-400); RED BLOOD COUNT 4.32 x10^6/uL (3.50-5.40); RED CELL DISTRIBUTION WIDTH 14.7 % (11.5-14.5); WHITE BLOOD COUNT 7.3 x10^3/uL (4.0-11.0)
[2020-01-20 02:45] LABS: BACTERIA,URINE FEW /HPF (0-FEW); BILIRUBIN,URINE NEG (NEG); CLARITY,URINE HAZY; COLOR,URINE YELLOW; GLUCOSE,URINE NEG (NEG); NITRITE,URINE NEG (NEG); RBC,URINE 0 /HPF (0-2); UROBILINOGEN,URINE 0.2 mg/dL (0.2 mg/dL); WBC,URINE RARE /HPF (0-4)
[2020-01-20 02:46] LABS: SQUAMOUS EPITHELIAL CELL,UR MOD /LPF
[2020-01-20 03:02] LABS: BARBITURATES NEG (NEG); BENZODIAZEPINES POS (NEG); CANNABINOIDS NEG (NEG); COCAINE NEG (NEG); METHADONE NEG (NEG); OPIATES NEG (NEG); PHENCYCLIDINE NEG (NEG)
[2020-01-20 03:03] LABS: AMPHETAMINE/METHAMPHETAMINE NEG (NEG)
[2020-01-20] MEDS ORDERED: MORPHINE SULFATE 10 MG/ML SYRINGE. SQ PRN (03:15)
[2020-01-20] MEDS ORDERED: ONDANSETRON PF 4 MG/2 ML VIAL. IVP PRN (03:15)
[2020-01-20] MEDS ORDERED: ASPIRIN CHEWABLE 81 MG TABLET. PO ONE (03:30)
[2020-01-20 04:16] LABS: POTASSIUM 3.7 mmol/L (3.5-5.1)
[2020-01-20 04:17] LABS: CREATININE 0.7 mg/dL (0.6-1.0); GFR 87.2
--- NOTE | 2020-01-20 04:52 | NUR ---
The patient, VELASQUEZ WRIGHT, 54 y/o, F admitted by MIRYAM FOURNIER MD, was given written information regarding hospital policies, unit procedures and contact persons. Valuables were checked and logged. Call light in reach. Will continue to monitor.
--- NOTE | 2020-01-20 05:24 | NUR ---
Routine [facility] cardio consult called at this time. Answering service will page it out at [phone].
[2020-01-20] MEDS ORDERED: LOSA100T14 PO (05:28)
[2020-01-20] MEDS ORDERED: ATORVASTATIN CA80 MG PO (05:28)
[2020-01-20 05:45] VITALS: BP 123/71
[2020-01-20] MEDS ORDERED: NITROGLYCERIN OINT 1 GM PACKET. TP SCH (06:00)
[2020-01-20 06:06] LABS: ALBUMIN 3.3 g/dL (3.4-5.0); CALCIUM 8.8 mg/dL (8.5-10.1); DIRECT BILIRUBIN 0.1 mg/dL (0.0-0.2); TOTAL BILIRUBIN 0.2 mg/dL (0.2-1.0); TOTAL PROTEIN 7.3 g/dL (6.4-8.2)
[2020-01-20 06:32] VITALS: BP 91/49
--- NOTE | 2020-01-20 06:42 | NUR ---
Tx not given due to being tied up with a critical ABG
--- NOTE | 2020-01-20 06:47 | RAD ---
Study: CR PORTABLE CHEST 1V Indication: Chest pain. Comparison: 07/13/2019 Findings: Unchanged cardiomediastinal silhouette and umang. No pneumothorax, pleural effusion or lobar consolidation. A few granulomas. Lower cervical ACDF. Impression: No acute radiographic abnormality of the chest. No significant change from 07/13/2019. Electronically signed by: PAULINA MAGALLON MD (01/20/2020 6:44 AM) [id number]
[2020-01-20] MEDS ORDERED: IPRATRPIUM/ALBUTEROL 0.5/2.5MG 3 ML NEBU. NEB SCH (08:00)
[2020-01-20] MEDS ORDERED: ENOXAPARIN ** NOTE DOSE ** SYRINGE SQ SCH ×2 (09:00)
[2020-01-20] MEDS ORDERED: oxyCODONE/APAP 7.5/325 1 TAB TABLET PO PRN (09:45)
--- NOTE | 2020-01-20 10:00 | NUR ---
DR. SMITH CALLED THIS NURSE AND REPORTED HE WAS NOT COMING TO SEE HER BECAUSE HE DID A HEART CATH ON HER ON TUESDAY AND EVERYTHING IS CLEAR. HE REPORTS HE BELIEVES THE CHEST PAIN IS RELATED TO FIBROMYALGIA. DR. FOURNIER INFORMED. WILL DISCHARGE PATIENT HOME TODAY AFTER SECOND TROPONIN LEVEL IS DRAWN.
--- NOTE | 2020-01-20 10:10 | RAD ---
EXAM: Bilateral lower extremity venous Doppler sonogram. HISTORY: Leg pain. TECHNIQUE: Granados scale and color Doppler sonographic evaluation of the bilateral lower extremity veins with spectral waveform analysis was performed. FINDINGS: There is normal color flow, normal compressibility and there are normal spectral waveforms in the common femoral, superficial femoral, popliteal, posterior tibial and greater saphenous veins. IMPRESSION: No Doppler evidence of lower extremity deep venous thrombosis. Electronically signed by: Eliza Howell MD (01/20/2020 10:07 AM) [facility]
[2020-01-20] MEDS ORDERED: ALBUTEROL SULFATE 8GM INHALER. INH PRN (10:30)
--- NOTE | 2020-01-20 10:31 | HP ---
ADMIT DATE: 01/20/2020 ADMISSION HISTORY AND PHYSICAL ATTENDING PHYSICIAN: Dr. Fournier. CHIEF COMPLAINT: Chest pain, left sided. HISTORY OF PRESENT ILLNESS: The patient is a 54-year-old female admitted through the ED with chest pain, nonexertional. 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 They never called back. She has very little insight and has a hard time comprehending. I had to take a disproportionate amount of time to explain things to her. She just had a cardiac catheterization by Dr. Bacon this past Tuesday, 72 hours ago. It went through her right radial artery. The site is clean. There is no bleeding, hematoma. In the ED yesterday, cardiac enzymes were negative for coronary ischemia. Chest x-ray was clear and EKG was nondiagnostic. She denies any alcohol or drug use, but she has significant underlying psychosomatic issues. She is under a lot of stress. I will try to get her to go into detail. She stated, "I don't want to talk about it." MEDICATIONS: Her scheduled drugs prior to coming in include albuterol, Lipitor, losartan, montelukast and nitroglycerin p.r.n. PAST MEDICAL HISTORY: Includes degenerative arthritis, obesity, arrhythmia, bronchitis, COPD. She does not have coronary artery disease, given the clean catheterization. She has had a remote history of DVT, fibromyalgia, hyperlipidemia, hypertension and generalized debilitation. She is disabled, on social security disability from her back pain. PAST SURGICAL HISTORY: Cholecystectomy, hysterectomy, right knee surgery, lumbar spine surgery and neck surgery requiring a brace. SOCIAL HISTORY: She is a smoker. She quit many years ago. No alcohol use. She denies any ibuprofen or nonsteroidal anti-inflammatory drug use. She states she does not use caffeine. FAMILY HISTORY: Multiple family members have premature heart disease, one brother of Parkinson disease at age 60. She is living with a significant other. She is unemployed as she is disabled. REVIEW OF SYSTEMS: Significant for chest pain, blurred vision, palpitations, numbness in her mouth, chronic pain in her back and legs. Her bowels have been fairly normal. There is no palpitation. It is hard to get her to talk about her stress factors. She stated she did not want to talk about it. Her affect remains very flat. Her mother of breast cancer at age 74. She does not know the cause of of her father. PHYSICAL EXAMINATION: GENERAL: When I saw her, this is a pleasant, middle-aged female with a flat affect. INITIAL VITAL SIGNS: Showed a blood pressure of 123/70, pulse is regular at 58. She is afebrile. HEENT: Head is without trauma. Pupils are reactive. Sclerae nonicteric. Oropharynx clear. NECK: Supple, no bruits. LUNGS: Otherwise clear. CARDIOVASCULAR: Showed regular heart tones. No gallops. ABDOMEN: Soft, nontender, no organomegaly. Bowel sounds are hypoactive. EXTREMITIES: Showed no cyanosis or edema. NEUROLOGIC: Focally intact. SKIN: Warm and dry. IMAGING STUDIES: Chest x-ray was reported as clear without any acute process. LABORATORY STUDIES: Hemoglobin maintained at 12.4 g/dL with a white count of 7300. Electrolytes, BUN and creatinine within normal range. First set of troponin levels is negative. ASSESSMENT: 1. A 54-year-old female with atypical chest pain, noncardiac in nature. 2. Essential hypertension. 3. Strong psychiatric component with depression and anxiety. Unfortunately, she does not want to discuss these issues at length. 4. Stress related chest pain. PLAN: 1. I will admit her for observation. 2. Serial cardiac enzymes. 3. Long discussion with the patient, but she is not amenable to having any type of therapy, she simply stopped speaking and does not want to talk about it. 4. I did put a formal Cardiology consultation for recommendations. MIRYAM FOURNIER MD DR: DAMI/johnny JOB#: [id number] / [id number]
[2020-01-20 10:47] LABS: THYROID STIM HORMONE (TSH) 3.672 uIU/mL (0.358-3.740)
--- NOTE | 2020-01-20 11:26 | DS ---
DATE OF DISCHARGE: 01/20/2020 ATTENDING PHYSICIAN: Dr. Fournier. FINAL DISCHARGE DIAGNOSES: 1. Atypical chest pain, left-sided, resolved. 2. Recent cardiac catheterization 3 days ago with normal coronary arteries. 3. Essential hypertension. 4. Significant depression and anxiety. She will not go into details. 5. Stress related chest pain. 6. Essential hypertension. HISTORY AND PHYSICAL: The patient is a 54-year-old female admitted to the ED with chest pain, central atypical in nature with associated shortness of breath. She just had a cardiac catheterization by Dr. Bacon this past Tuesday, 72 hours ago. Her workup was unremarkable. Enzymes were negative. EKG nondiagnostic. Chest x-ray was clear. She was sent to the hospital for observation. PHYSICAL EXAMINATION: Please see my dictated note. PERTINENT LABORATORY AND X-RAY STUDIES: Hemoglobin maintained at 12.4 g/dL, white count 7300. Cardiac enzymes were negative for coronary ischemia. Electrolytes, BUN and creatinine, liver panel all within normal range. normal cholesterol, normal TSH. EKG nondiagnostic. Chest x-ray was entirely clear without any cardiac or pulmonary involvement. Doppler ultrasound showed no evidence of deep vein thrombosis. COURSE IN THE HOSPITAL: The patient was admitted. She was pain free. Diet was advanced. Home meds continued. Serial enzymes were drawn. She felt better. Dr. Bacon's group was consulted. He states that he will follow up with her as an outpatient. No further testing needs to be done. He said it was safe for the patient to go home. I felt this is reasonable. Regarding her pain, she is a poor historian. She did request the pain medication and I agreed to giving her a small script for Percocet 7.5 mg 1 every 6 hours p.r.n. pain. Other home meds are unchanged. She should continue her losartan, albuterol, Lipitor, Singulair, and nitroglycerin p.r.n., dosages unchanged. The patient was then discharged from our hospital in stable condition with explicit instructions and followup care. MIRYAM FOURNIER MD DR: DAMI/johnny JOB#: [id number] / [id number] SANJUANITA Caputo MD
--- NOTE | 2020-01-20 11:44 | NUR ---
PT'S IV DISCONTINUED. PT SIGNED DISCHARGE PAPERWORK AND IS CHANGING HER CLOTHES AND CALLING HER RIDE TO PICK HER UP. WILL CTM.
[2020-01-20 11:47] VITALS: BP 110/63
--- NOTE | 2020-01-22 14:02 | NUR ---
IP: attempt to notify patient of CIVD result, busy signal.
--- NOTE | 2020-01-22 14:55 | NUR ---
IP: attempt to notify patient of COVID result, busy signal.
--- NOTE | 2020-01-23 10:05 | NUR ---
IP: attempt to notify patient of COVID result, busy signal. Will send letter.
== END 2020-01-20 11:50 | disposition home or self-care (01) ==
LOC: ER 00:54 → ICU 04:48
PROVIDERS: ADMIT Hospitalist; ATTEND Hospitalist
DX: R07.89 Other chest pain (principal); Z20.828 Contact with and (suspected) exposure to other viral communicable diseases; I10 Essential (primary) hypertension; F32.9 Major depressive disorder, single episode, unspecified; F41.9 Anxiety disorder, unspecified; E66.9 Obesity, unspecified; M54.5 Low back pain; G89.29 Other chronic pain; J44.9 Chronic obstructive pulmonary disease, unspecified; E78.5 Hyperlipidemia, unspecified; E78.00 Pure hypercholesterolemia, unspecified; M79.7 Fibromyalgia; Z87.891 Personal history of nicotine dependence; Z86.711 Personal history of pulmonary embolism; Z90.710 Acquired absence of both cervix and uterus; Z79.899 Other long term (current) drug therapy
CPT/HCPCS: 36415; 71045; 80048; 80061; 80076; 80307; 81001; 82550; 83690; 83735; 83880; 84443; 84484; 85025; 85379; 85610; 85730; 93005; 93970; 96360; 96372; 99285; G0378; G0379; J1650; J2270; J7120; J7613; U0003

== ENCOUNTER → 2020-04-28 | Outpatient (CLI) | payer OTHER, MEDICAID ==
[~2020-04-28] MED LIST changes: +ATORVASTATIN CA80 MG PO
--- NOTE | 2020-04-30 16:46 | RAD ---
DATE: 04/28/2020 10:30 AM EXAM: DIGITAL SCREEN BILAT W/CAD HISTORY: Screening COMPARISON: 05/29/2019 Bilateral full field craniocaudal and mediolateral oblique images were obtained using digital technique. Bilateral X CCL views were also obtained. This study was interpreted with the benefit of Computerized Aided Detection (CAD). FINDINGS: Breast Density: HETERO The breast parenchyma Is heterogeneously dense, which could reduce sensitivity of mammography. Breast parenchyma level C No suspicious masses, microcalcifications or architectural distortion is present to suggest malignancy in either breast. The visualized axillae are unremarkable. IMPRESSION: No mammographic evidence of malignancy. BI-RADS CATEGORY: 1 NEGATIVE RECOMMENDED FOLLOW-UP: 12M 12 MONTH FOLLOW-UP Annual screening mammography is recommended, unless clinically indicated sooner based on symptoms or change in physical exam. PQRS compliance statement: Patient information was entered into a reminder system with a target due date for the next mammogram. Mammography is a sensitive method for finding small breast cancers, but it does not detect them all and is not a substitute for careful clinical examination. A negative mammogram does not negate a clinically suspicious finding and should not result in delay in biopsying a clinically suspicious abnormality. "Our facility is accredited by the [employer] Mammography Program."
== END ==
LOC: MAMMO 10:13
PROVIDERS: ATTEND Family Medicine
DX: Z12.31 Encounter for screening mammogram for malignant neoplasm of breast (principal); N64.89 Other specified disorders of breast
CPT/HCPCS: 77067

== ENCOUNTER → 2020-05-23 | Emergency (ER) | payer OTHER, MEDICAID ==
[~2020-05-23] VITALS: Ht 160 cm; Wt 93.5 kg
[~2020-05-23] MED LIST changes: +HYDROcodone/APAP 5/325MG 1 TAB TABLET PO ONE
[2020-05-23 16:30] VITALS: BP 137/73
--- NOTE | 2020-05-23 17:30 | RAD ---
Exam: Right hand 3 views INDICATION: Blunt trauma TECHNIQUE: Frontal and lateral views of the right hand Comparisons: None FINDINGS: Bone mineralization is normal. No acute or healed fractures. Soft tissues are unremarkable. Joint spa christie are well-maintained. IMPRESSION: No acute osseous abnormality. Electronically signed by: Nahid Aquino MD (05/23/2020 5:28 PM) [id number]
--- NOTE | 2020-05-23 18:25 | PHYS DOC ---
Past History Past Medical History: High Cholesterol, Hypertension Additional Past Medical Histor: pulmonary embolism Past Surgical History: Tubal ligation, Other Additional Past Surgical Histo: NECK, BILATERAL KNEES, LOWER BACK Smoking: Quit Greater Than 1 Year Alcohol Use: None Drug Use: None Adult General Chief Complaint Chief Complaint: HAND PROBLEM HPI HPI Patient is a 54-year-old female presents emergency department complaining of right hand pain stating that the wind blew her car door open and it hit the back of her hand yesterday evening, patient rates pain 10/10 on a 1-10 pain scale. Patient states that today she noticed it was swelling on the back of her hand and worries that it might be broken. Patient states he did not take anything for the pain. Patient denies any numbness or tingling. Patient states she did not put any ice on her swelling hand. Patient states she can still move her fingers okay but it hurts to do so. Patient denies any other physical pains or illnesses. Review of Systems Review of Systems 14 body systems of review of systems have been reviewed. See HPI for pertinent positives and negative responses, otherwise all other systems are negative, nonpertinent or noncontributory. Current Medications Current Medications Current Medications Medications (Trade) Dose Ordered Sig/Ophelia Start Time Stop Time Status Last Admin Dose Admin Acetaminophen/ Hydrocodone Bitart (Lortab 5/325) 2 tab 1X ONCE 05/23/20 17:15 05/23/20 17:20 DC 05/23/20 18:00 2 TAB Allergies Allergies Allergies Coded Allergies Type Severity Reaction Last Updated Verified Penicillins Allergy Intermediate 01/20/20 Yes codeine Allergy Intermediate 01/20/20 Yes ibuprofen Allergy Intermediate takes NAPROXEN at home 01/20/20 Yes tramadol Allergy Intermediate 01/20/20 Yes I S O L A T I O N *CONTACT* Allergy Unknown 01/20/20 Yes Physical Exam Physical Exam Constitutional: Well developed, well nourished, no acute distress, non-toxic appearance. HENT: Normocephalic, atraumatic, bilateral external ears normal, oropharynx moist, no oral exudates, nose normal. Eyes: PERRLA, EOMI, conjunctiva normal, no discharge. Neck: Normal range of motion, no tenderness, supple, no stridor. Cardiovascular:Heart rate regular rhythm, no murmur Lungs & Thorax: Bilateral breath sounds clear to auscultation Abdomen: Bowel sounds normal, soft, no tenderness, no masses, no pulsatile masses. Skin: Warm, dry, no erythema, no rash. Back: No tenderness, no CVA tenderness. Extremities: No tenderness, no cyanosis, no clubbing, ROM intact, no edema. Patient has mild swelling over the right 3rd and 4th distal metacarpal area dorsal aspect.. No bruising appreciated. No loss of sensation, distal cap refill less than 2 seconds. No deformity noted. Palmar aspect is without bruising or swelling. Full AROM/PROM although elicits pain with passive range of motion. Skin intact. Neurologic: Alert and oriented X 3, normal motor function, normal sensory function, no focal deficits noted. Psychologic: Affect normal, judgement normal, mood normal. Current Patient Data Vital Signs Vital Signs Date Time Temp Pulse Resp B/P (MAP) Pulse Ox O2 Delivery O2 Flow Rate FiO2 05/23/20 18:00 20 05/23/20 16:30 98.1 78 137/73 (94) 95 Room Air EKG EKG [] Radiology/Procedures Radiology/Procedures [] Heart Score Risk Factors: Risk Factors: DM, Current or recent (<one month) smoker, HTN, HLP, family history of CAD, obesity. Risk Scores: Risk Factors: DM, Current or recent (<one month) smoker, HTN, HLP, family history of CAD, obesity. Course & Med Decision Making Course & Med Decision Making Pertinent Labs and Imaging studies reviewed. (See chart for details) 50-year-old female with right hand pain after a car door hit her right hand reporting that the wind blew her car door open. An x-ray was ordered, read negative by house radiologist interpretation, wet read by ED attending Dr. Torre noted possible distal #3 metacarpal chip fracture. Recommended patient be put in splint and follow-up with orthopedics. Discussed findings with patient, a volar splint was placed by ED bark scaler. Examination of the splint found volar splint satisfactorily placed in normal anatomical position, neurovascular intact. Patient was given 2 5/325 Vicodin's in ED, patient reports mild pain relief. Patient gave verbal understanding of follow-up with orthopedics, patient states that she has an orthopedic surgeon that she is very familiar with and has seen her in the past. Patient gave verbal understanding of splint application and use, RICE therapy. Gave verbal understanding of return to ER precautions and concerns. Patient discharged home without incident. Dragon Disclaimer Dragon Disclaimer This electronic medical record was generated, in whole or in part, using a voice recognition dictation system. Departure Departure: Impression: Primary Impression: Fx metacarpal Additional Impression: Contusion of hand Disposition: 01 DC HOME SELF CARE/HOMELESS Condition: IMPROVED Referrals: SANJUANITA ALFORD MD (PCP) Patient Instructions: Hand Fracture, Metacarpals Additional Instructions: Please take medication as prescribed, keep your splint on until released by your orthopedic surgeon, return to the emergency department for worsening symptoms or other concerns. EMERGENCY DEPARTMENT GENERAL DISCHARGE INSTRUCTIONS Thank you for coming to [facility] (ED) today and trusting us with you care. We trust that you had a positivie experience in our Emergency Department. If you wish to speak to the department management, you may call the director at [phone]. YOUR FOLLOW UP INSTRUCTIONS ARE FOLLOWS: 1. Do you have a private Doctor? If you do not have a private doctor, please ask for a resource list of physicians or clinics that may be able to assist you with follow up care. 2. The Emergency Physician has interpreted your x-rays. The X-Ray specialist will also review them. If there is a change in the findings, you will be notified in 48 hours when at all possible. 3. A lab test or culture has been done, your results will be reviewed and you will be notified if you need a change in treatment. ADDITIONAL INSTRUCTIONS AND INFORMATION: 1. Your care today has been supervised by a physician who is specially trained in emergency care. Many problems require more than one evaluation for a complete diagnosis and treatment. We recommend that you schedule your follow up appointment as recommended to ensure complete treatment of you illness or injury. If you are unable to obtain follow up care and continue to have a problem, or if your condition worsens, we recommend that you return to the ED. 2. We are not able to safely determine your condition over the phone nor are we able to give sound medical advice over the phone. For these safety reasons, if you call for medical advice we will ask you to come to the ED for further evaluation. 3. If you have any questions regarding these discharge instructions please call the ED at [phone]. SAFETY INFORMATION: In the interest of safety, wellness, and injury prevention; we encourage you to wear your sealbelt, if you smoke; quite smoking, and we encourage family to use a protective helmet for bicycling and other sporting events that present an increased risk for head injury. IF YOUR SYMPTOMS WORSEN OR NEW SYMPTOMS DEVELOP, OR YOU HAVE CONCERNS ABOUT YOUR CONDITION; OR IF YOUR CONDITION WORSENS WHILE YOU ARE WAITING FOR YOUR FOLLOW UP APPOINTMENT; EITHER CONTACT YOUR PRIMARY CARE DOCTOR, THE PHYSICIAN WHOSE NAME AND NUMBER YOU WERE GIVEN, OR RETURN TO THE ED IMMEDIATELY. Scripts Hydrocodone Bit/Acetaminophen (NORCO 5-325 TABLET) 1 Each Tablet 1-2 TAB PO Q4-6HRS for pain, #30 TAB 0 Refills Prov: DINORAH CASTELLON APRN 05/23/20 Problem Qualifiers Primary Impression: Fx metacarpal Encounter type: initial encounter Metacarpal bone: third Fracture type: closed Metacarpal location: other portion of metacarpal Fracture alignment: nondisplaced Laterality: right Qualified Codes: S62.392A - Other fracture of third metacarpal bone, right hand, initial encounter for closed fracture Additional Impression: Contusion of hand Encounter type: initial encounter Laterality: right Qualified Codes: S60.221A - Contusion of right hand, initial encounter DINORAH CASTELLON APRN May 23, 2020 18:25
== END ==
LOC: ER 16:18
DX: S62.392A Other fracture of third metacarpal bone, right hand, initial encounter for closed fracture (principal); S62.394A Other fracture of fourth metacarpal bone, right hand, initial encounter for closed fracture; R60.0 Localized edema; I10 Essential (primary) hypertension; E78.00 Pure hypercholesterolemia, unspecified; Z98.51 Tubal ligation status; Z98.890 Other specified postprocedural states; Z87.891 Personal history of nicotine dependence; Z88.0 Allergy status to penicillin; Z88.5 Allergy status to narcotic agent; Z88.8 Allergy status to other drugs, medicaments and biological substances; W22.8XXA Striking against or struck by other objects, initial encounter; Y93.89 Activity, other specified; Y92.89 Other specified places as the place of occurrence of the external cause; Y99.8 Other external cause status
CPT/HCPCS: 29125; 73130; 99283

== ENCOUNTER 2020-06-24 19:31 | Emergency (ER) | payer OTHER, MEDICAID ==
[~2020-06-24] VITALS: Ht 160 cm; Wt 96.4 kg
[~2020-06-24 19:31] MED LIST changes: -ESCI10TA2 PO; +ESCI10TA5 PO; -HYDROcodone/APAP 5/325MG 1 TAB TABLET PO ONE
[2020-06-24] MEDS ORDERED: HYDROcodone/APAP 5/325MG 1 TAB TABLET PO ONE (19:45)
--- NOTE | 2020-06-24 19:58 | RAD ---
Right hand 3 views: Reason for examination: Metacarpal pain. Comparison is made to previous study dated 05/23/2020. No acute fracture or dislocation is seen. The bone density is normal. No abnormal periosteal reaction is seen. There are some mild degenerative changes at the interphalangeal joint of the thumb and at t he distal interphalangeal joint of the third finger which are stable. There is also some mild degener ative change at the first carpometacarpal joint which is stable. Remaining joint spaces are maintaine d. IMPRESSION: Mild degenerative changes in the right hand. No acute bony abnormality evident. Electronically signed by: Belinda Odom MD (06/24/2020 7:56 PM) [facility]I
[2020-06-24] MEDS ORDERED: HYDR-2155 PO (20:06)
--- NOTE | 2020-06-24 20:06 | PHYS DOC ---
Past History Past Medical History: High Cholesterol, Hypertension Additional Past Medical Histor: pulmonary embolism Past Surgical History: Tubal ligation, Other Additional Past Surgical Histo: NECK, BILATERAL KNEES, LOWER BACK Smoking: Non-smoker, Quit Greater Than 1 Year Alcohol Use: None Drug Use: None General Adult EDM: Chief Complaint: HAND PROBLEM HPI: HPI: 54-year-old female presents with report of right hand pain and swelling to the back of her hand. Reports her dog accidentally pulled her into a metal fence. Reports recent injury to same hand in the last 1 month. Reports she previously "smashed" her hand in a car door on 05/22/20. Reports significant pain to back of her hand. Review of Systems: Review of Systems: Constitutional: Denies fever or chills Eyes: Denies redness or eye pain HENT: Denies nasal congestion or sore throat Respiratory: Denies cough or shortness of breath Cardiovascular: Denies chest pain or palpitations GI: Denies abdominal pain, nausea, or vomiting : Denies dysuria or hematuria Musculoskeletal: Denies back pain or joint pain Integument: Reports right hand swelling and bruising Neurologic: Denies headache, focal weakness or sensory changes Complete systems were reviewed and found to be within normal limits, except as documented in this note. Current Medications: Current Meds: Current Medications Medications (Trade) Dose Ordered Sig/Ophelia Start Time Stop Time Status Last Admin Dose Admin Acetaminophen/ Hydrocodone Bitart (Lortab 5/325) 1 tab 1X ONCE 06/24/20 19:45 06/24/20 19:55 DC 06/24/20 19:59 1 TAB Allergies: Allergies: Allergies Coded Allergies Type Severity Reaction Last Updated Verified Penicillins Allergy Intermediate 01/20/20 Yes codeine Allergy Intermediate 01/20/20 Yes ibuprofen Allergy Intermediate takes NAPROXEN at home 01/20/20 Yes tramadol Allergy Intermediate 01/20/20 Yes I S O L A T I O N *CONTACT* Allergy Unknown 01/20/20 Yes Physical Exam: PE: Constitutional: Well developed, well nourished, no acute distress, non-toxic appearance HENT: Normocephalic, atraumatic Eyes: Conjunctiva normal, no discharge Neck: Normal range of motion, no tenderness, supple Lungs & Thorax: No respiratory distress, equal chest rise and fall Skin: Warm, dry, no erythema, swelling and ecchymosis to dorsal aspect of right hand Extremities: Right dorsal hand tenderness and swelling, mild ecchymosis noted, pain with ROM, ROM intact, right radial pulse +2 Neurologic: Alert and oriented X 3, no focal deficits noted Psychologic: Affect normal, judgment normal Current Patient Data: Vital Signs: Vital Signs Date Time Temp Pulse Resp B/P (MAP) Pulse Ox O2 Delivery O2 Flow Rate FiO2 06/24/20 19:59 96 Room Air 06/24/20 19:31 98.6 81 16 176/98 (124) EKG: EKG: [] Radiology/Procedures: Radiology/Procedures: PROCEDURE: HAND RIGHT 3V Right hand 3 views: Reason for examination: Metacarpal pain. Comparison is made to previous study dated 05/23/2020. No acute fracture or dislocation is seen. The bone density is normal. No abnor mal periosteal reaction is seen. There are some mild degenerative changes at the interphalangeal joint of the thumb and at the distal interphalangeal joint of the third finger which are stable. There is also some mild degenerative change at the first carpometacarpal joint which is stable. Remaining joint spaces are maintained. IMPRESSION: Mild degenerative changes in the right hand. No acute bony abnormality evident. Electronically signed by: Belinda Odom MD (06/24/2020 7:56 PM) [facility] Course & Med Decision Making: Course & Med Decision Making Pertinent Imaging studies reviewed. (See chart for details) Patient presents with contusion to dorsum of right hand. No deformity noted. Radial pulse +2. X-ray obtained without acute fracture or dislocation. Ice applied. Pain addressed. Pa wrap applied. Patient stable for discharge with outpatient follow-up with PCP. Discussed findings and plan with patient, who acknowledges understanding and agreement. Jadiel Disclaimer: Jadiel Disclaimer: This electronic medical record was generated, in whole or in part, using a voice recognition dictation system. Splinting Splinting : Location: Right hand Pre-Made Type: PA bandage Pre-Proc Neuro Vasc Exam: normal Post-Proc Neuro Vasc Exam: normal, unchanged from pre-exam Departure Departure: Impression: Primary Impression: Contusion of hand Qualified Codes: S60.221A - Contusion of right hand, initial encounter Disposition: 01 DC HOME SELF CARE/HOMELESS Condition: STABLE Referrals: SANJUANITA ALFORD MD (PCP) Patient Instructions: Contusion, [id number], Elastic Bandage and RICE Scripts Hydrocodone Bit/Acetaminophen (HYDROCODONE-APAP 5-325 ) 1 Each Tablet 0.5-1 TAB PO PRN Q6HRS PRN for PAIN, #10 TAB 0 Refills Prov: DINORAH CHUA DO 06/24/20 DINORAH CHUA DO Jun 24, 2020 20:06
[2020-06-24 20:12] VITALS: BP 154/73
== END 2020-06-24 20:12 | disposition home or self-care (01) ==
LOC: ER 19:31
DX: S60.221A Contusion of right hand, initial encounter (principal); E78.00 Pure hypercholesterolemia, unspecified; I10 Essential (primary) hypertension; Z86.711 Personal history of pulmonary embolism; Z87.891 Personal history of nicotine dependence; Z88.0 Allergy status to penicillin; Z88.5 Allergy status to narcotic agent; Z88.6 Allergy status to analgesic agent; Z88.8 Allergy status to other drugs, medicaments and biological substances; W22.8XXA Striking against or struck by other objects, initial encounter; Y93.89 Activity, other specified; Y92.89 Other specified places as the place of occurrence of the external cause; Y99.8 Other external cause status
CPT/HCPCS: 73130; 99283

== ENCOUNTER 2020-07-11 14:40 | Emergency (ER) | payer OTHER, MEDICAID ==
[~2020-07-11] VITALS: Ht 160 cm; Wt 92.7 kg
[2020-07-11 14:40] VITALS: BP 127/100
[~2020-07-11 14:40] MED LIST changes: -ESCI10TA5 PO; +ESCI10TA90 PO; -LISI-334 PO; +LISI20TA18 PO
--- NOTE | 2020-07-11 15:09 | PHYS DOC ---
Past History Past Medical History: High Cholesterol, Hypertension Additional Past Medical Histor: pulmonary embolism Past Surgical History: Knee Replacement, Tubal ligation, Other Additional Past Surgical Histo: NECK, BILATERAL KNEES, LOWER BACK Smoking: Non-smoker, Quit Greater Than 1 Year Alcohol Use: None Drug Use: None General Adult EDM: Chief Complaint: HAND PROBLEM HPI: HPI: Patient is a 54-year-old female who presents to the emergency department with complaints of continued right hand pain after she accidentally shut her hand in a car door on May 22, 2020. Patient denies any new injury. She reports that she was previously seen in this ER and had x-rays and was told there is no fracture. She continues to experience swelling and pain in the affected hand. She denies any new injury. She currently rates the pain a 10 out of 10 on the pain scale, patient reports she has been taking Tylenol with no benefit. Patient states she is allergic to all NSAIDs. Review of Systems: Review of Systems: Complete ROS is negative unless otherwise noted in HPI. Allergies: Allergies: Allergies Coded Allergies Type Severity Reaction Last Updated Verified Penicillins Allergy Intermediate 01/20/20 Yes codeine Allergy Intermediate 01/20/20 Yes ibuprofen Allergy Intermediate takes NAPROXEN at home 01/20/20 Yes tramadol Allergy Intermediate 01/20/20 Yes I S O L A T I O N *CONTACT* Allergy Unknown 01/20/20 Yes Physical Exam: PE: See Above Constitutional: Well developed, well nourished, no acute distress, non-toxic appearance. [] HENT: Normocephalic, atraumatic, bilateral external ears normal, nose normal. [] Eyes: PERRLA, EOMI, conjunctiva normal, no discharge. [] Neck: Normal range of motion, no stridor. [] Cardiovascular:Heart rate regular rhythm Lungs & Thorax: Respirations even and unlabored, no retractions, no respiratory distress Skin: Warm, dry, no erythema, no rash. [] Extremities: Right hand: No obvious deformities or crepitus, tenderness to palpation over the third and fourth metacarpals, no cyanosis, ROM limited due to pain, 1+ edema Neurologic: Alert and oriented X 3, no focal deficits noted. [] Psychologic: Affect normal, judgement normal, mood normal. [] Current Patient Data: Vital Signs: Vital Signs Date Time Temp Pulse Resp B/P (MAP) Pulse Ox O2 Delivery O2 Flow Rate FiO2 07/11/20 14:40 98.1 79 18 127/100 (109) 94 Room Air EKG: EKG: [] Radiology/Procedures: Radiology/Procedures: PROCEDURE: HAND RIGHT 3V Right hand 3 views: Reason for examination: Crushed in car door on 05/22/2020 with continued pain. Swelling on posterior right hand over the second and third metacarpal bone region. Comparison is made to previous studies dated 06/24/2020 and 05/23/2020. No acute fracture or dislocation is seen. The bone density is normal. No abnormal periosteal reaction is seen. There are some degenerative changes present. IMPRESSION: Mild degenerative changes present. No acute fracture or dislocation evident. Electronically signed by: Belinda Odom MD (07/11/2020 4:28 PM) QI [] Heart Score: Risk Factors: Risk Factors: DM, Current or recent (<one month) smoker, HTN, HLP, family history of CAD, obesity. Risk Scores: Score 0 - 3: 2.5% MACE over next 6 weeks - Discharge Home Score 4 - 6: 20.3% MACE over next 6 weeks - Admit for Clinical Observation Score 7 - 10: 72.7% MACE over next 6 weeks - Early Invasive Strategies Course & Med Decision Making: Course & Med Decision Making Pertinent Labs and Imaging studies reviewed. (See chart for details) [] Jadiel Disclaimer: Jadiel Disclaimer: This electronic medical record was generated, in whole or in part, using a voice recognition dictation system. Departure Departure: Impression: Primary Impression: Right hand pain Disposition: 01 DC HOME SELF CARE/HOMELESS Condition: STABLE Referrals: SANJUANITA ALFORD MD (PCP) Patient Instructions: Arthritis, Degenerative-Brief Additional Instructions: Wear the pa wrap as needed for comfort, take Tylenol as needed for pain. Follow up with your primary care doctor next week, return to the ER if symptoms worsen. Splinting Splinting : Location: Right hand Pre-Made Type: Pa wrap Pre-Proc Neuro Vasc Exam: normal Post-Proc Neuro Vasc Exam: normal, unchanged from pre-exam WAYNE WORRELL APRN Jul 11, 2020 15:09
--- NOTE | 2020-07-11 16:30 | RAD ---
Right hand 3 views: Reason for examination: Crushed in car door on 05/22/2020 with continued pain. Swelling on posterior right hand over the second and third metacarpal bone region. Comparison is made to previous studies dated 06/24/2020 and 05/23/2020. No acute fracture or dislocation is seen. The bone density is normal. No abnormal periosteal reaction is seen. There are some degenerative changes present. IMPRESSION: Mild degenerative changes present. No acute fracture or dislocation evident. Electronically signed by: Belinda Odom MD (07/11/2020 4:28 PM) QI
== END 2020-07-11 16:45 | disposition home or self-care (01) ==
LOC: ER 14:40
DX: M79.641 Pain in right hand (principal); I10 Essential (primary) hypertension; E78.5 Hyperlipidemia, unspecified; Z88.0 Allergy status to penicillin; Z88.6 Allergy status to analgesic agent; Z88.8 Allergy status to other drugs, medicaments and biological substances; Z98.51 Tubal ligation status
CPT/HCPCS: 73130; 99283

== ENCOUNTER → 2020-07-18 | Outpatient (CLI) | payer OTHER, MEDICAID ==
[2020-07-11 14:40] VITALS: BP 127/100
--- NOTE | 2020-07-19 15:47 | RAD ---
3 views right hand AP lateral oblique views There is marginal spurring of the distal interphalangeal joints and of the interphalangeal joint of t humb. There is marginal spurring of the scaphoid trapezium. The remaining visualized osseous structur es appear normal. There is diffuse soft tissue swelling. IMPRESSION: Moderate osteoarthrosis. No acute bony abnormality. Electronically signed by: Mekhi Serrano III, MD (07/19/2020 3:44 PM) [facility]
== END ==
LOC: RAD 10:46
DX: M19.041 Primary osteoarthritis, right hand (principal); M79.89 Other specified soft tissue disorders
CPT/HCPCS: 73130

== ENCOUNTER → 2020-08-25 | Outpatient (CLI) | payer OTHER, MEDICAID ==
--- NOTE | 2020-08-26 11:01 | CARD ---
MR#: [id number] Date of Study: 08/25/2020 Ordering Physician: ISAC CLINE, Referring Physician: ISAC CLINE, Tech: Belle Barry [facility] APPROVED REPORT EXAM: Two-dimensional and M-mode echocardiogram with Doppler and color Doppler. Other Information Quality : AverageHR: 60bpm INDICATION Cardiac Disease: CAD RISK FACTORS Hypertension Hyperlipidemia 2D DIMENSIONS RVDd3.2 (2.9-3.5cm)Left Atrium(2D)3.4 (1.6-4.0cm) IVSd1.0 (0.7-1.1cm)Aortic Root(2D)3.6 (2.0-3.7cm) LVDd5.3 (3.9-5.9cm)LVOT Diameter2.0 (1.8-2.4cm) PWd1.0 (0.7-1.1cm)LVDs3.1 (2.5-4.0cm) FS (%) 40.5 %SV95.6 ml LVEF(%)70.8 (>50%) Aortic Valve AoV Peak Reilly.154.0cm/sAoV VTI35.0cm AO Peak GR.9.5mmHgLVOT Peak Reilly.120.2cm/s LVOT VTI 28.63cmAO Mean GR.5mmHg ANITHA (VMAX)2.39gs1EWR (VTI)2.51cm2 Mitral Valve MV E Zffjfucm70.8cm/sMV DECEL LUYC618ce MV A Miesfkkz96.8cm/sE/A Ratio1.0 Pulmonary Valve PV Peak Sppplvfb67.0cm/sPV Peak Grad.2mmHg Tricuspid Valve TR P. Oftxnhle688pe/sTR Peak Gr.29mmHg Pulmonary Vein S1 Xxkqudfw33.6cm/sD2 Wsbajatf59.2cm/s LEFT VENTRICLE The left ventricle is normal size. There is normal left ventricular wall thickness. The left ventricu lar systolic function is normal and the ejection fraction is within normal range. The Ejection Fracti on is 50-55%. There is normal LV segmental wall motion. Transmitral Doppler flow pattern is Grade II- pseudonormal filling dynamics. RIGHT VENTRICLE The right ventricle is mildly dilated. There is normal right ventricular wall thickness. The right ve ntricular systolic function is normal. ATRIA The left atrium size is normal. The right atrium is mildly dilated. The interatrial septum is intact with no evidence for an atrial septal defect or patent foramen ovale as noted on 2-D or Doppler imagi ng. AORTIC VALVE The aortic valve is normal in structure and function. Doppler and Color Flow revealed no significant aortic regurgitation. There is no significant aortic valvular stenosis. Calculated aortic valve area is 2.5 cm2 with maximum pressure gradient of 10 mmHg and mean pressure gradient of 5 mmHg. MITRAL VALVE The mitral valve is normal in structure and function. There is no evidence of mitral valve prolapse. There is no mitral valve stenosis. Doppler and Color-flow revealed trace mitral regurgitation. TRICUSPID VALVE The tricuspid valve is normal in structure and function. Doppler and Color Flow revealed trace tricus pid regurgitation with an estimated PAP of 32 mmHg. There is no tricuspid valve stenosis. PULMONIC VALVE The pulmonic valve is not well visualized. Doppler and Color Flow revealed trace pulmonic valvular re gurgitation. There is no pulmonic valvular stenosis. GREAT VESSELS The aortic root is normal in size. The ascending aorta is normal in size. The IVC is normal in size a nd collapses >50% with inspiration. PERICARDIAL EFFUSION There is no evidence of significant pericardial effusion. Critical Notification Critical Value: No <Conclusion> The left ventricular systolic function is normal and the ejection fraction is within normal range. Th e Ejection Fraction is 50-55%. There is normal LV segmental wall motion. Signed by : Eben Angulo, Electronically Approved : 08/26/2020 11:01:17
== END ==
LOC: ECHO 10:54
PROVIDERS: ATTEND Internal Medicine Cardiovascular Disease
DX: I25.10 Atherosclerotic heart disease of native coronary artery without angina pectoris (principal)
CPT/HCPCS: 93306

== ENCOUNTER 2021-02-10 16:36 | Emergency (ER) | payer OTHER, MEDICAID ==
[~2021-02-10] VITALS: Ht 160 cm; Wt 102.0 kg
[2021-02-10] MEDS ORDERED: IOHEXOL 350 MG/ML 100 ML VIAL. IV ONE (17:00)
--- NOTE | 2021-02-10 17:00 | PHYS DOC ---
Past History Past Medical History: Asthma, High Cholesterol, Hypertension Additional Past Medical Histor: pulmonary embolism Past Surgical History: Knee Replacement, Tubal ligation, Other Additional Past Surgical Histo: NECK, BILATERAL KNEES, LOWER BACK Smoking: Non-smoker, Quit Greater Than 1 Year Alcohol Use: None Drug Use: None Adult General Chief Complaint Chief Complaint: CHEST PAIN HPI HPI Patient is a 55-year-old female presenting for chest pain. Reports this first started this morning shortly after waking up without any known inciting event, trauma, ingestion, sick contact or known mechanism of injury. Nothing known makes better or worse. Patient describes substernal chest pain that sometimes radiates to her left shoulder. Reports the pain is 10/10 in severity and has been this way ever since starting this morning. She reports she has had decreased O2 saturations in the low 90s for the past couple weeks which concerned her, she has been checking this daily and was at her primary care physician's office for checkup today when she could not take the chest pain anymore prompting her to come down to our ER for emergent evaluation. She reports taking 324 mg aspirin daily, she does this due to history of pulmonary embolism of unknown etiology. Denies any tobacco, alcohol or other drug use. Has history of high blood pressure and high cholesterol. Admits history of provocative cardiac testing with heart cath performed " sometime this past year" by [facility] and states she had a 50% blockage had an unknown vessel that did not require any intervention Review of Systems Review of Systems Fourteen body systems of review of systems have been reviewed. See HPI for pertinent positives and negative responses, other trimble all other systems are negative, non-pertinent or non-contributory Allergies Allergies Allergies Coded Allergies Type Severity Reaction Last Updated Verified Penicillins Allergy Intermediate 01/20/20 Yes codeine Allergy Intermediate 01/20/20 Yes ibuprofen Allergy Intermediate takes NAPROXEN at home 01/20/20 Yes tramadol Allergy Intermediate 01/20/20 Yes I S O L A T I O N *CONTACT* Allergy Unknown 01/20/20 Yes Physical Exam Physical Exam Constitutional: Well developed, well nourished, no acute distress, non-toxic appearance. HENT: Normocephalic, atraumatic, bilateral external ears normal, oropharynx moist, no oral exudates, nose normal. Eyes: PERRLA, EOMI, conjunctiva normal, no discharge. Neck: Normal range of motion, no tenderness, supple, no stridor. Cardiovascular: Heart rate regular, sinus rhythm, no murmurs rubs or gallops Lungs & Thorax: Bilateral breath sounds clear to auscultation Abdomen: Bowel sounds normal, soft, no tenderness, no masses, no pulsatile masses. Nonsurgical abdomen, no peritoneal signs Skin: Warm, dry, no erythema, no rash. Back: No tenderness, no CVA tenderness. Extremities: No tenderness, no cyanosis, no clubbing, ROM intact, no edema. Neurologic: Alert and oriented X 3, grossly normal motor & sensory function, no focal deficits noted. Psychologic: Affect normal, judgement normal, mood normal. Current Patient Data Vital Signs Vital Signs Date Time Temp Pulse Resp B/P (MAP) Pulse Ox O2 Delivery O2 Flow Rate FiO2 02/10/21 16:40 98.9 86 16 142/67 (92) 92 Room Air Lab Results Laboratory Tests Test 02/10/21 17:01 White Blood Count 8.1 x10^3/uL Red Blood Count 4.48 x10^6/uL Hemoglobin 12.5 g/dL Hematocrit 38.2 % Mean Corpuscular Volume 85 fL Mean Corpuscular Hemoglobin 28 pg Mean Corpuscular Hemoglobin Concent 33 g/dL Red Cell Distribution Width 15.9 % Platelet Count 305 x10^3/uL Neutrophils (%) (Auto) 72 % Lymphocytes (%) (Auto) 16 % Monocytes (%) (Auto) 7 % Eosinophils (%) (Auto) 4 % Basophils (%) (Auto) 1 % Neutrophils # (Auto) 5.8 x10^3uL Lymphocytes # (Auto) 1.3 x10^3/uL Monocytes # (Auto) 0.6 x10^3/uL Eosinophils # (Auto) 0.3 x10^3/uL Basophils # (Auto) 0.1 x10^3/uL Sodium Level 142 mmol/L Potassium Level 3.7 mmol/L Chloride Level 104 mmol/L Carbon Dioxide Level 29 mmol/L Anion Gap 9 Blood Urea Nitrogen 14 mg/dL Creatinine 0.8 mg/dL Estimated GFR (Cockcroft-Gault) 74.5 Glucose Level 104 mg/dL Calcium Level 9.3 mg/dL Troponin I Quantitative < 0.017 ng/mL AK-Chi-R-Type Natriuretic Peptide Pending Current Medications Medications (Trade) Dose Ordered Sig/Ophelia Route PRN Reason Start Time Stop Time Status Last Admin Dose Admin Nitroglycerin (Nitrostat) 0.4 mg PRN Q5MIN PRN SL CP RATING > 1/10 02/10/21 17:00 02/11/21 16:59 02/10/21 17:53 Iohexol (Omnipaque 350 Mg/ml) 100 ml 1X ONCE IV 02/10/21 17:00 02/10/21 17:01 DC 02/10/21 17:00 EKG EKG EKG ordered and interpreted by myself at 1651 hrs. as sinus rhythm at 87 bpm, unremarkable intervals, left axis deviation, no acute ischemic findings, no STEMI Repeat EKG ordered and interpreted by myself at 1806 hrs. as sinus rhythm at 84 bpm, unremarkable intervals, left axis deviation, no acute ischemic findings, no STEMI Radiology/Procedures Radiology/Procedures Examination: CT angiography chest with IV contrast HISTORY: History of chest pain, shortness of breath COMPARISON: None available Technique: Axial CT angiographic images of chest were performed with IV contrast. Coronal and sagittal 3-D MIP reformats are performed Exposure: One or more of the following individualized dose reduction techniques were utilized for this examination: 1. Automated exposure control 2. Adjustment of the mA and/or kV according to patient size 3. Use of iterative reconstruction technique FINDINGS: The central airways are patent. Coronary artery calcifications identified. The caliber of the aorta grossly appears unremarkable. There is no evidence of filling defect identified in the main pulmonary arterial trunk and right and left main pulmonary surgery visualized lobar, segmental branches of the pulmonary arteries. Faint airspace opacities identified in the bilateral lungs likely atelectasis. The liver, spleen, adrenals grossly appears unremarkable. Mild degenerative changes thoracic spine. IMPRESSION: 1. No evidence of pulmonary embolism. 2. Coronary artery calcifications. 3. Faint airspace opacities identified in the bilateral lungs likely atelectasis or infiltrates. Electronically signed by: Pollo Styles MD (02/10/2021 5:45 PM) [id number] Heart Score C/O Chest Pain: Yes HEART Score for Chest Pain: HEART Score for Chest Pain Response (Comments) Value History Slighlty/Non-Suspicious 0 ECG Normal 0 Age >45 - < 65 1 Risk Factors >3 Risk Factors or Hx CAD 2 Troponin < Normal Limit 0 Total 3 Risk Factors: Risk Factors: DM, Current or recent (<one month) smoker, HTN, HLP, family history of CAD, obesity. Risk Scores: Risk Factors: DM, Current or recent (<one month) smoker, HTN, HLP, family history of CAD, obesity. Course & Med Decision Making Course & Med Decision Making ABCs unremarkable. I disclosed entirety of ER findings and discussed most likely diagnosis of atypical chest pain, likely due to pneumonia. Other diagnoses were discussed with patient such as ACS and other emergent diagnoses but all deemed less likely causes of patient's presentation. I reviewed patient's heart score in fact that she has high risk for adverse cardiac events if discharged home, patient acknowledges that chest pain today is not typical for her usual chest pain that is cardiac in etiology. Patient recovering from Covid, she has been sedentary and I fear she is dealing with sequelae of her infection. As such, joint decision made to start azithromycin for suspected bilateral bibasilar infiltrates. Patient continuing to ask for pain medication, I disclose this is not indicated. She is stoic asking for narcotics stating she has 10/10 pain, I fear she is pain seeking. Patient's chest pain has been all ongoing all day without any concerning EKG abnormalities and/or elevated troponin. I disclosed her chest pain is likely atypical. Patient upset and still demanding pain medication. I discussed I would not comply and as such, I reviewed no further indication for ER work-up or hospital admission. Plan of care discussed at length with need for close outpatient follow-up to review today's ER visit stressed. Strict return precautions were also discussed at length with good unde rstanding verbalized by patient. Patient voiced understanding and agreement with the plan. Patient knows to come back for repeat evaluation if concerning signs or symptoms present prior to outpatient follow-up. Hemodynamically stable, ambulatory and well-appearing at time of disposition. Dragon Disclaimer Dragon Disclaimer This electronic medical record was generated, in whole or in part, using a voice recognition dictation system. Departure Departure: Impression: Primary Impression: Pneumonia Additional Impression: Atypical chest pain Disposition: HOME / SELF CARE / HOMELESS Condition: STABLE Referrals: SANJUANITA ALFORD MD (PCP) Additional Instructions: You were seen for chest pain. Your workup did not show any acute abnormalities today, but does not indicate that you do not have underlying cardiovascular disease. You do need to follow up with your primary doctor and potentially a media marketing director for further evaluation and treatment. As disclosed, your findings on CT chest were concerning for pneumonia and given recent Covid infection, it is recommended you start the prescribed antibiotic which you should take to completion. You should return to the ED if you develop worsening chest pain, shortness of breath, fever, abnormal sweating, leg swelling, or any other new or concerning symptoms. Please keep checking her pulse oximetry daily and notify your primary care provider if your oxygen consistently stays in the low 90s and drops into the upper 80s. Scripts Azithromycin (AZITHROMYCIN PACKET) 1 Gm Packet 1 PACKET PO ONCE for pneumonia for 1 Day, #1 PACKET 0 Refills dissolve in 2 ounces of water Prov: LEENA ZEPEDA DO 02/10/21 Problem Qualifiers LEENA ZEPEDA DO Feb 10, 2021 17:00
[2021-02-10] MEDS: NITROGLYCERIN SUBLINGUAL 0.4 MG BOTTLE OF 25. SL PRN ×2 (17:07→17:53)
[2021-02-10 17:29] LABS: BASO # 0.1 x10^3/uL (0.0-0.2); BASO % 1 % (0-3); EOS # 0.3 x10^3/uL (0.0-0.7); EOS % 4 % (0-3); HEMATOCRIT 38.2 % (36.0-47.0); HEMOGLOBIN 12.5 g/dL (12.0-15.5); LYMPH # 1.3 x10^3/uL (1.0-4.8); LYMPH % 16 % (24-48); MEAN CORPUSCULAR HEMOGLOBIN 28 pg (25-35); MEAN CORPUSCULAR HGB CONC 33 g/dL (31-37); MEAN CORPUSCULAR VOLUME 85 fL (79-100); MONO # 0.6 x10^3/uL (0.0-1.1); MONO % 7 % (0-9); NEUT # 5.8 x10^3uL (1.8-7.7); NEUT % 72 % (31-73); PLATELET COUNT 305 x10^3/uL (140-400); RED BLOOD COUNT 4.48 x10^6/uL (3.50-5.40); RED CELL DISTRIBUTION WIDTH 15.9 % (11.5-14.5); WHITE BLOOD COUNT 8.1 x10^3/uL (4.0-11.0)
[2021-02-10 17:39] LABS: CALCIUM 9.3 mg/dL (8.5-10.1); CREATININE 0.8 mg/dL (0.6-1.0); GFR 74.5; POTASSIUM 3.7 mmol/L (3.5-5.1)
--- NOTE | 2021-02-10 17:48 | RAD ---
Examination: CT angiography chest with IV contrast HISTORY: History of chest pain, shortness of breath COMPARISON: None available Technique: Axial CT angiographic images of chest were performed with IV contrast. Coronal and sagitta l 3-D MIP reformats are performed Exposure: One or more of the following individualized dose reduction techniques were utilized for thi s examination: 1. Automated exposure control 2. Adjustment of the mA and/or kV according to patient size 3. Use of iterative reconstruction technique FINDINGS: The central airways are patent. Coronary artery calcifications identified. The caliber of the aorta g rossly appears unremarkable. There is no evidence of filling defect identified in the main pulmonary arterial trunk and right and left main pulmonary surgery visualized lobar, segmental branches of the pulmonary arteries. Faint airspace opacities identified in the bilateral lungs likely atelectasis. Th e liver, spleen, adrenals grossly appears unremarkable. Mild degenerative changes thoracic spine. IMPRESSION: 1. No evidence of pulmonary embolism. 2. Coronary artery calcifications. 3. Faint airspace opacities identified in the bilateral lungs likely atelectasis or infiltrates. Electronically signed by: Pollo Styles MD (02/10/2021 5:45 PM) [id number]
--- NOTE | 2021-02-10 17:51 | EKG ---
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
[2021-02-10 17:53] VITALS: BP 123/66
[2021-02-10] MEDS ORDERED: AZIT1PAC9 PO (17:55)
--- NOTE | 2021-02-10 18:18 | EKG ---
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
== END 2021-02-10 18:16 | disposition home or self-care (01) ==
LOC: ER 16:36
DX: J18.9 Pneumonia, unspecified organism (principal); R07.2 Precordial pain; J45.909 Unspecified asthma, uncomplicated; E78.00 Pure hypercholesterolemia, unspecified; I10 Essential (primary) hypertension; Z86.711 Personal history of pulmonary embolism; Z87.891 Personal history of nicotine dependence; Z88.0 Allergy status to penicillin; Z88.5 Allergy status to narcotic agent; Z88.6 Allergy status to analgesic agent
CPT/HCPCS: 36415; 71275; 80048; 83880; 84484; 85025; 93005; 99285; Q9967

== ENCOUNTER → 2021-05-18 | Outpatient (CLI) | payer OTHER, MEDICAID ==
[~2021-05-18] MED LIST changes: +AZIT1PAC9 PO
--- NOTE | 2021-05-18 14:04 | RAD ---
EXAM: Left shoulder, 3 views. HISTORY: Stiffness. Pain. COMPARISON: None. FINDINGS: 3 views of the left shoulder obtained. There has been distal clavicular resection. There is glenohumeral joint spurring. There is cervical spinal fusion instrumentation. IMPRESSION: 1. Distal clavicular resection. 2. Mild glenohumeral joint osteoarthritis. Electronically signed by: Eliza Howell MD (05/18/2021 2:01 PM) [id number]
== END ==
LOC: RAD 13:45
PROVIDERS: ATTEND Physician Assistant
DX: M19.012 Primary osteoarthritis, left shoulder (principal); M77.8 Other enthesopathies, not elsewhere classified; M25.612 Stiffness of left shoulder, not elsewhere classified
CPT/HCPCS: 73030

== ENCOUNTER 2021-08-31 20:10 | Emergency (ER) | payer OTHER, MEDICAID ==
[~2021-08-31] VITALS: Ht 160 cm; Wt 104.5 kg
--- NOTE | 2021-08-31 20:26 | PHYS DOC ---
Past History Past Medical History: Asthma, High Cholesterol, Hypertension Additional Past Medical Histor: pulmonary embolism Past Surgical History: Knee Replacement, Tubal ligation, Other Additional Past Surgical Histo: NECK, BILATERAL KNEES, LOWER BACK Smoking: Non-smoker, Quit Greater Than 1 Year Alcohol Use: None Drug Use: None General Adult EDM: Chief Complaint: SHORTNESS OF BREATH HPI: HPI: 56-year-old female presents shortness of breath. She was feeling a bit more short of breath yesterday and it continues today. She states it is not worse with activity. She can just be sitting there feels like she is getting short of breath. She denies any chest pain or diaphoresis. The patient has no history of smoking or COPD. She does have an asthma history. She intermittently uses albuterol. She used it twice last night. She denies fever or chills. She has no other complaints at this time. Review of Systems: Review of Systems: Constitutional: Denies fever or chills Eyes: Denies change in visual acuity HENT: Denies nasal congestion or sore throat Respiratory: shortness of breath Cardiovascular: Denies chest pain or edema GI: Denies abdominal pain, nausea, vomiting, bloody stools or diarrhea : Denies dysuria Musculoskeletal: Denies back pain or joint pain Integument: Denies rash Neurologic: Denies headache, focal weakness or sensory changes Endocrine: Denies polyuria or polydipsia Lymphatic: Denies swollen glands Psychiatric: Denies depression or anxiety Allergies: Allergies: Allergies Coded Allergies Type Severity Reaction Last Updated Verified Penicillins Allergy Intermediate 01/20/20 Yes codeine Allergy Intermediate 01/20/20 Yes ibuprofen Allergy Intermediate takes NAPROXEN at home 01/20/20 Yes tramadol Allergy Intermediate 01/20/20 Yes I S O L A T I O N *CONTACT* Allergy Unknown 01/20/20 Yes Physical Exam: PE: Constitutional: Well developed, well nourished, obese, no acute distress, non- toxic appearance. [] HENT: Normocephalic, atraumatic, bilateral external ears normal, oropharynx moist, no oral exudates, nose normal. [] Eyes: PERRLA, EOMI, conjunctiva normal, no discharge. [] Neck: Normal range of motion, no tenderness, supple, no stridor. [] Cardiovascular: Heart rate 95, regular rhythm, no murmur [] Lungs & Thorax: Bilateral breath sounds clear to auscultation [] Abdomen: Bowel sounds normal, soft, no tenderness, no masses, no pulsatile masses. [] Skin: Warm, dry, no erythema, no rash. [] Back: No tenderness, no CVA tenderness. [] Extremities: No tenderness, no cyanosis, no clubbing, ROM intact, no edema. [] Neurologic: Alert and oriented X 3, normal motor function, normal sensory fun ction, no focal deficits noted. [] Psychologic: Affect normal, judgement normal, mood normal. [] EKG: EKG: [] Radiology/Procedures: Radiology/Procedures: [] Heart Score: C/O Chest Pain: N/A Risk Factors: Risk Factors: DM, Current or recent (<one month) smoker, HTN, HLP, family history of CAD, obesity. Risk Scores: Score 0 - 3: 2.5% MACE over next 6 weeks - Discharge Home Score 4 - 6: 20.3% MACE over next 6 weeks - Admit for Clinical Observation Score 7 - 10: 72.7% MACE over next 6 weeks - Early Invasive Strategies Course & Med Decision Making: Course & Med Decision Making Pertinent Labs and Imaging studies reviewed. (See chart for details) The patient's labs are unremarkable. Her chest x-ray shows a widened cardiomediastinal silhouette and umang. This appears similar to previous. No official read is available at this time. Pneumonia seems unlikely given her lack of symptoms and normal lab values. Her oxygen saturation has been greater than 92% the entire time she is been in emergency room. She is stable for discharge at this time. [] Dragon Disclaimer: Dragon Disclaimer: This electronic medical record was generated, in whole or in part, using a voice recognition dictation system. Departure Departure: Impression: Primary Impression: Shortness of breath Disposition: HOME / SELF CARE / HOMELESS Condition: STABLE Referrals: SANJUANITA ALFORD MD (PCP) Patient Instructions: Shortness of Breath, [id number] CHRIST TORRES DO Aug 31, 2021 20:26
[2021-08-31 21:04] LABS: BASO # 0.1 x10^3/uL (0.0-0.2); BASO % 1 % (0-3); EOS # 0.2 x10^3/uL (0.0-0.7); EOS % 2 % (0-3); HEMATOCRIT 39.7 % (36.0-47.0); HEMOGLOBIN 13.5 g/dL (12.0-15.5); LYMPH # 1.3 x10^3/uL (1.0-4.8); LYMPH % 17 % (24-48); MEAN CORPUSCULAR HEMOGLOBIN 30 pg (25-35); MEAN CORPUSCULAR HGB CONC 34 g/dL (31-37); MEAN CORPUSCULAR VOLUME 88 fL (79-100); MONO # 0.6 x10^3/uL (0.0-1.1); MONO % 7 % (0-9); NEUT # 5.8 x10^3uL (1.8-7.7); NEUT % 73 % (31-73); PLATELET COUNT 295 x10^3/uL (140-400); RED BLOOD COUNT 4.53 x10^6/uL (3.50-5.40); RED CELL DISTRIBUTION WIDTH 14.9 % (11.5-14.5)
[2021-08-31 21:12] LABS: INFLUENZA A PATIENT NEGATIVE (NEGATIVE); INFLUENZA B PATIENT NEGATIVE (NEGATIVE)
--- NOTE | 2021-08-31 21:25 | EKG ---
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
[2021-08-31 22:12] LABS: CALCIUM 9.1 mg/dL (8.5-10.1); CREATININE 0.8 mg/dL (0.6-1.0); GFR 74.2; POTASSIUM 3.9 mmol/L (3.5-5.1)
[2021-08-31 22:19] LABS: ALBUMIN 3.3 g/dL (3.4-5.0); ALBUMIN/GLOBULIN RATIO 0.8 (1.0-1.7); TOTAL BILIRUBIN 0.2 mg/dL (0.2-1.0); TOTAL PROTEIN 7.3 g/dL (6.4-8.2)
[2021-08-31 22:40] VITALS: BP 159/93
--- NOTE | 2021-08-31 23:00 | RAD ---
EXAM: AP View of the chest DATE: 08/31/2021 9:38 PM INDICATION: Reason: SOB / Spl. Instructions: / History: COMPARISON: 01/20/2020 FINDINGS: The heart is not enlarged. Mediastinal and hilar contours are normal. Patchy perihilar and left greater than right lung base airspace opacities likely consolidative proces s such as pneumonia. No pleural effusion or pneumothorax. IMPRESSION: Patchy perihilar and left greater than right lung base airspace opacities likely consolidative proces s such as pneumonia. Electronically signed by: Alex Isaac MD (08/31/2021 10:57 PM) [id number]
[2021-08-31] MEDS ORDERED: AZIT250T6 PO (23:34)
== END 2021-08-31 22:48 | disposition home or self-care (01) ==
LOC: ER 20:10
DX: J18.9 Pneumonia, unspecified organism (principal); J45.909 Unspecified asthma, uncomplicated; E78.00 Pure hypercholesterolemia, unspecified; I10 Essential (primary) hypertension; Z20.822 Contact with and (suspected) exposure to COVID-19; Z86.711 Personal history of pulmonary embolism; Z87.891 Personal history of nicotine dependence; Z88.0 Allergy status to penicillin; Z88.5 Allergy status to narcotic agent; Z88.8 Allergy status to other drugs, medicaments and biological substances
CPT/HCPCS: 36415; 71045; 80053; 84484; 85025; 87428; 93005; 99285